=== PATIENT | female | born 1970 | race Hispanic/Latino ===

== ENCOUNTER 2025-10-18 17:10 | Inpatient (IN) | payer BC ==
[~2025-10-18] VITALS: Ht 157.5 cm; Wt 69.9 kg
--- NOTE | 2025-10-18 17:33 | ERN ---
General Chief Complaint: Shortness of Breath Stated Complaint: SOB Time Seen by MD: 17:13 Time Seen by Midlevel: 17:13 Source: patient History of Present Illness Initial Comments The patient is a 55 y/o female presenting to the emergency department via EMS from [facility] for evaluation of low O2 saturation. Patient was found to be hypoxic with an SPO2 of 88 on room air. She was placed on 3 liters of O2 with improvement to 98%. On arrival she reports increased generalized edema to her legs, hands, and face. Allergies: Coded Allergies: No Known Drug Allergies (Unverified Allergy, Unknown, 10/18/25) Past Medical History Past Medical History: CHF, Diabetes-Type II, Hypertension, GA Past Surgical History: CABG, ROS Dictation CONSTITUTIONAL: Negative except for HPI HEAD/FACE: Negative except for HPI EENT: Negative except for HPI RESPIRATORY: Negative except for HPI GASTROINTESTINAL/ABDOMINAL: Negative except for HPI GENITOURINARY: Negative except for HPI MUSCULOSKELETAL: Negative except for HPI INTEGUMENTARY: Negative except for HPI NEUROLOGICAL/PSYCH: Negative except for HPI HEMATOLOGIC/LYMPHATIC: Negative except for HPI All Systems Negative, Except as noted above. 13 point review of systems assessed and all negative except for above. Physical Exam Physical Exam Dictation Vital Signs reviewed General Appearance: Alert, oriented x 3, anasarca, ill-appearing, pale Head and Face: non-traumatic. Eyes: PERRL, pink conjunctivas, eyelid no trauma, anterior chamber with arcus senilis. Ears: Pinnas intact and no signs of trauma or erythema ear canals clear and no discharge TM no erythema Nose: No discharge, no bleeding. Oropharynx: Mouth normal, tongue pink, pharynx clear,no erythema, tonsils no exudates, no abscesses noted, mucous membrane moist Neck: Supple, non-tender, no thyromegaly, no masses, no JVD, no bruits Breast:Deferred Chest:No tenderness, no crepitus, no paradoxical movement, no retractions Lungs: Decreased breath sounds to the right lower lung rizo Heart: Regular rate, regular rhythm, no murmur, no gallops Vascular: 3+ pitting edema to bilateral lower extremities Abdomen: Soft, positive bowel sounds, nondistended, no guarding, nontender, no rebound, no masses no hepatomegaly, no splenomegaly, no Garcia's sign, no hernias. Rectal: Deferred Genital: Deferred Neurological: Normal speech, motor function intact, sensory function intact Musculoskeletal: Neck nontender, full range of motion, back nontender, full range of motion, Extremities: nontender, full range of motion Skin: Color pink, dry, no turgor, no rash, no lacerations, no abrasions, no contusions. Lymphatic: Deferred Results Laboratory and Microbiology Lab and Micro Result Laboratory Tests Test 10/18/25 17:42 White Blood Count 11.0 K/uL (4.8-10.8) H Red Blood Count 4.34 MIL/uL (4.00-5.50) Hemoglobin 9.7 g/dL (12.0-16.0) L Hematocrit 34.7 % (36-48) L Mean Corpuscular Volume 80.0 fL (79-99) Mean Corpuscular Hemoglobin 22.4 pg (27.0-33.0) L Mean Corpuscular Hemoglobin Concent 28.0 g/dL (32.0-36.0) L Red Cell Distribution Width 28.4 % (11.0-15.5) H Platelet Count 373 K/uL (130-400) Mean Platelet Volume 11.0 fL (7.5-10.5) H Immature Granulocyte % (Auto) 0.6 % (0-1) Neutrophils (%) (Auto) 83.1 % (40.0-77.0) H Lymphocytes (%) (Auto) 8.2 % (21.0-51.0) L Monocytes (%) (Auto) 6.0 % (3.0-13.0) Eosinophils (%) (Auto) 1.5 % (0.0-8.0) Basophils (%) (Auto) 0.6 % (0.0-5.0) Neutrophils # (Auto) 9.1 K/uL (1.8-7.7) H Lymphocytes # (Auto) 0.9 K/uL (1.0-4.8) L Monocytes # (Auto) 0.7 K/uL (0.1-1.0) Eosinophils # (Auto) 0.17 K/uL (0.00-0.70) Basophils # (Auto) 0.07 K/uL (0.00-0.20) Absolute Immature Granulocyte (auto 0.07 K/uL (0-1) Nucleated Red Blood Cells 0.0 % (0.0-0.19) White Cell Morphology Comment See comments Red Blood Cell Morphology See comments Prothrombin Time 11.8 SEC (9.6-11.6) H Prothromb Time International Ratio 1.13 (0.85-1.15) Activated Partial Thromboplast Time 25.8 SEC (26.3-35.5) L Sodium Level 139 mmol/L (136-145) Potassium Level 3.9 mmol/L (3.5-5.1) Chloride Level 102 mmol/L (101-111) Carbon Dioxide Level 28 mmol/L (21-32) Blood Urea Nitrogen 23 mg/dL (7-18) H Creatinine 1.7 mg/dL (0.5-1.0) H Glomerular Filtration Rate Calc 35 mL/min (>90) Random Glucose 84 mg/dL (70-105) Lactic Acid Level 1.6 mmol/L (0.8-2.5) Total Calcium 8.6 mg/dL (8.5-10.1) Magnesium Level 1.60 mg/dL (1.80-2.40) L Total Bilirubin 1.1 mg/dL (0.2-1.0) H Aspartate Amino Transf (AST/SGOT) 43 U/L (10-37) H Alanine Aminotransferase (ALT/SGPT) 36 U/L (12-78) Alkaline Phosphatase 318 U/L (50-136) H Total Creatine Kinase 119 U/L (21-232) Troponin I High Sensitivity 22 ng/L (4-50) B-Type Natriuretic Peptide 3050 pg/mL (0-100) H Total Protein 7.0 g/dL (6.0-8.3) Albumin 1.8 g/dL (3.5-5.0) L Procalcitonin 0.10 ng/mL (0.05-0.5) Labs Reviewed?: Yes MDM MDM: Differential diagnosis: Fluid overload, CHF exacerbation, pneumonia Rationale: Tests considered and ordered secondary to shared decision making include: Previous outside records reviewed: Old ER visits. Risk of complication and/or morbidity or mortality of patient management: None Medications-Per medication reconciliation Need for hospitalization: Patient does meet criteria for hospitalization. Need for emergency major/minor surgery: No There are no social concerns with this patient. Prescription drug management Prescriptions will include symptomatic care Patient's prior external medical records from other ER visits were reviewed by me as indicated. Prior testing and results from previous visits were reviewed. Prior tests were taken into account with medical decision making and resource utilization, independent historian/historians were used to obtain complete medical history. I independently interpreted the test that were performed, results were reviewed by me and considered findings on radiology if ordered. Medical management and examination interpretation discussions were had by me with other qualified healthcare professionals as indicated for the patient's care. ED Course Orders Procedure Category Date Status Time 12 Lead Ekg Tracing- EKG 10/18/25 Logged Technical 17:24 B-Type Natriuretic LAB 10/18/25 Complete Peptide 17:24 Cbc With Differential LAB 10/18/25 Complete 17:24 Comprehensive LAB 10/18/25 Complete Metabolic Panel 17:24 Creatine Kinase, Total LAB 10/18/25 Complete 17:24 Lactic Acid LAB 10/18/25 Complete 17:24 Magnesium LAB 10/18/25 Complete 17:24 Procalcitonin LAB 10/18/25 Complete 17:24 Pt And Ptt LAB 10/18/25 Complete 17:24 Troponin I High LAB 10/18/25 Complete Sensitivity 17:24 Urinalysis Profile LAB 10/18/25 Logged 17:24 Chest 1vw RAD 10/18/25 Resulted 17:24 Furosemide 40mg Vial PHA 10/18/25 Complete (Lasix 40mg Vial) 18:00 *Nursing CPOE 10/18/25 Transmitted Communication: 17:57 Current Medications Medications (Trade) Dose Ordered Sig/Blanca Route PRN Reason Start Time Stop Time Status Last Admin Dose Admin Furosemide (LASix 40MG VIAL) 40 mg ONCE ONCE IV 10/18/25 18:00 10/18/25 18:01 DC 10/18/25 18:29 Vital Signs Date Time Temp Pulse Resp B/P (MAP) Pulse Ox O2 Delivery O2 Flow Rate FiO2 10/18/25 19:23 97.3 91 18 111/72 100 Nasal Cannula* 3 32 10/18/25 17:23 98.1 91 14 100/67 97 Room Air 3.0 DX & DISP Disposition: Inpatient Departure Impression: Primary Impression: Fluid overload Additional Impressions: Acute hypoxemic respiratory failure, CHF exacerbat ion, Pleural effusion, right Condition: Stable I have reviewed the case, and I agree with, Diagnosis and Plan I performed the substantive portion of the visit. I have reviewed and personally made and approve the management plan that is documented in the note by myself or the LIBERTAD. I acknowledge for responsibility for the patient's management plan. CHRISTIANA GALINDO PAC Oct 18, 2025 17:33
[2025-10-18 17:57] LABS: IMMATURE GRANULOCYTE ABSOLUTE 0.07 K/uL (0-1); NUCLEATED RED BLOOD CELLS 0.0 % (0.0-0.19); PLATELET COUNT (AUTO) 373 K/uL (130-400); RED BLOOD CELL COUNT(AUTO) 4.34 MIL/uL (4.00-5.50); RED CELL DISTRIBUTION WIDTH 28.4 % (11.0-15.5); WHITE BLOOD COUNT (AUTO) 11.0 K/uL (4.8-10.8)
[2025-10-18 18:08] LABS: INR 1.13 (0.85-1.15)
[2025-10-18 18:15] LABS: CREATININE 1.7 mg/dL (0.5-1.0); GLOMERULAR FILTR. RATE CALC 35.0 mL/min (>90); GLUCOSE,RANDOM 84.0 mg/dL (70-105); SODIUM SERUM 139.0 mmol/L (136-145); UREA NITROGEN, BLOOD 23.0 mg/dL (7-18)
[2025-10-18 18:24] LABS: ASPARTATE AMINOTRANSFERASE 43.0 U/L (10-37); CREATINE KINASE, TOTAL 119.0 U/L (21-232); TOTAL PROTEIN, SERUM 7.0 g/dL (6.0-8.3)
--- NOTE | 2025-10-18 19:13 | HMCIMG ---
EXAM: CR Chest, 1 View. CLINICAL HISTORY: sob COMPARISON: None provided. FINDINGS: Large right pleural effusion with underlying airspace disease that may reflect compressive atelectasis. The left lung is relatively clear. No pneumothorax. Prior sternotomy. Cardiomegaly and pulmonary vascular congestion. IMPRESSION: 1. Large right pleural effusion with underlying airspace disease, possibly compressive atelectasis. 2. Cardiomegaly and pulmonary vascular congestion. /Artemas
--- NOTE | 2025-10-18 19:50 | NUR ---
16 FR GORDON CATHETER PRESENT WEB APPLICATION DEV SPECIALIST, INSERTION DATE NOTED 10/01/25
[2025-10-18 20:19] LABS: APPEARANCE,URINE TURBID (CLEAR); GLUCOSE, URINE (UA) NEGATIVE (NEGATIVE); LEUKOCYTE ESTERASE ,URINE 500 Leu/uL (NEGATIVE); NITRATE,URINE NEGATIVE (NEGATIVE); OCCULT BLOOD,URINE LARGE (NEGATIVE)
[2025-10-18 20:30] LABS: ADD UA MICROSCOPIC YES
[2025-10-18 20:46] LABS: NON-SQUAMOUS EPITHELIAL CELL <1 /HPF (0-2); SQUAMOUS EPITHELIAL CELL,UR MOD /HPF (0-2); WBC CLUMP RARE /HPF (0-1); YEAST,URINE BUDDING MOD /HPF (None Seen)
[2025-10-18 21:18] LABS: RAPID GROUP A STREP negative (NEGATIVE)
[2025-10-18 21:31] LABS: SARS-CoV-2, RNA, NAAT NEGATIVE SARS CoV-2 (NEGATIVE)
[2025-10-18 21:33] LABS: INFLUENZA TYPE A Negative For Type A (NEGATIVE); INFLUENZA TYPE B Negative For Type B (NEGATIVE)
--- NOTE | 2025-10-18 21:56 | HP ---
[facility] HISTORY & PHYSICAL Date Patient Seen: Oct 18, 2025 Time of Visit: 21:43 Supervising Physician: Dr. Shimon Ahn Primary Care Physician: Ger Zhang Outpatient Specialists: [ ] Inpatient Consults: [ ] PROBLEM LIST: Acute hypoxic respiratory failure, likely from right-sided pleural effusion, POA Right-sided pleural effusion, POA CHF in acute exacerbation, initial BNP of more than 3000 Sepsis, multifactorial, likely from respiratory, genitourinary infection, initial lactic acid is normal, procal normal POA Acute complicated cystitis, POA Hypertension, POA Hyperlipidemia, POA DM type II, with hyperglycemia, POA Acute kidney injury, POA Class two obesity, BMI of 35.5, POA History of CAD, status post two-vessel CABG, August 2024, POA History of peripheral vascular disease, status post left TMA with Dr. Cox, 09/2025 at [facility], [facility] PLAN: Admit to PCCU VS per unit protocol Continue with IV Lasix Obtain CT of the chest Avoid nephrotoxic agents Renally dose all medications Continue cefepime Treat fever aggressively Monitor temperature curve Follow up culture results Keep head of bed above 30 Continue O2 therapy Keep patient NPO after midnight for possible thoracentesis in am Incentive spirometry DuoNeb q.6 as needed for shortness of breaths CBC, CMP, magnesium level daily Keep SBP less than 160 P.r.n. hydralazine labetalol Keep serum glucose less than 150 ISS and fingerstick per unit protocol Obtain 2D echo HPI: 55-year-old female with past medical history of hypertension, hyperlipidemia, DM type 2, obesity, PVD, status post recent left TMA with Dr. Cox who [facility] for low oxygen saturation, and worsening shortness of breaths. Patient was seen and examined in ED with no relatives present at bedside. Apparently patient recently had left TMA last month, was sent to above-mentioned rehab for continued recovery and long-term antibiotic therapy. Today he started to have some shortness of breath with associated cough. She was sent to ER for further medical evaluation. Her symptoms are not associated with fever, cough with phlegm, chest pain, or confusion. On evaluation patient was found to have low oxygen saturation improved with administration of oxygen and IV Lasix. In ED stat chest x-ray was done and showed large right-sided pleural effusion, CBC showed mild leukocytosis with normocytic anemia , her chemistry significant for creatinine level of 1.7, BNP of more than 3000, initial lactic acid was normal, with normal procalcitonin level. Her COVID and flu tests were also negative. At present patient is currently hemodynamically stable, on2 L of oxygen with appropriate oxygen saturation, patient is awake, not in acute respiratory distress, able to answer questions appropriately. On evaluation there is shortness of breaths, on auscultation there is diminished right lung field. There is no abdominal pain, or bloatedness, there is no right lower extremity edema, however there is dressing to left foot from recent TMA. Patient has remote history of smoking, denies any alcohol intake, or illicit drug use. PAST MEDICAL HX: see above PAST SURGICAL HX: noncontributory SOCIAL HISTORY: See HP Coded Allergies: No Known Drug Allergies (Unverified Allergy, Unknown, 10/18/25) REVIEW OF SYSTEMS: 12 point ROS reviewed with patient. Pertinent positives mentioned above. Otherwise negative. PHYSICAL EXAM: GENERAL: alert, weak, awake oriented x 3 HEENT: EOMI, Sclera non icteric, moist mucosa NECK: Supple, no JVD, trachea midline LUNGS: Diminished right lung rizo on auscultation HEART: Regular rate and rhythm. Normal S1 and S2, without murmurs ABD: Abdomen soft, nontender. Bowel sounds present EXT: No clubbing cyanosis or edema, left foot TMA NEURO: Alert and oriented to person, follows commands Vital Signs (last 8hr) Date Time Temp Pulse Resp B/P (MAP) Pulse Ox O2 Delivery O2 Flow Rate FiO2 10/18/25 19:23 97.3 91 18 111/72 100 Nasal Cannula* 3 32 10/18/25 17:23 98.1 91 14 100/67 97 Room Air 3.0 LABS: Hematology Labs: Test 10/18/25 17:42 Range/Units White Blood Count 11.0 H 4.8-10.8 K/uL Red Blood Count 4.34 4.00-5.50 MIL/uL Hemoglobin 9.7 L 12.0-16.0 g/dL Hematocrit 34.7 L 36-48 % Mean Corpuscular Volume 80.0 79-99 fL Mean Corpuscular Hemoglobin 22.4 L 27.0-33.0 pg Mean Corpuscular Hemoglobin Concent 28.0 L 32.0-36.0 g/dL Red Cell Distribution Width 28.4 H 11.0-15.5 % Platelet Count 373 130-400 K/uL Mean Platelet Volume 11.0 H 7.5-10.5 fL Immature Granulocyte % (Auto) 0.6 0-1 % Neutrophils (%) (Auto) 83.1 H 40.0-77.0 % Lymphocytes (%) (Auto) 8.2 L 21.0-51.0 % Monocytes (%) (Auto) 6.0 3.0-13.0 % Eosinophils (%) (Auto) 1.5 0.0-8.0 % Basophils (%) (Auto) 0.6 0.0-5.0 % Neutrophils # (Auto) 9.1 H 1.8-7.7 K/uL Lymphocytes # (Auto) 0.9 L 1.0-4.8 K/uL Monocytes # (Auto) 0.7 0.1-1.0 K/uL Eosinophils # (Auto) 0.17 0.00-0.70 K/uL Basophils # (Auto) 0.07 0.00-0.20 K/uL Absolute Immature Granulocyte (auto 0.07 0-1 K/uL Nucleated Red Blood Cells 0.0 0.0-0.19 % White Cell Morphology Comment See comments Red Blood Cell Morphology See comments Chemistry Labs: Test 10/18/25 17:42 Range/Units Sodium Level 139 136-145 mmol/L Potassium Level 3.9 3.5-5.1 mmol/L Chloride Level 102 101-111 mmol/L Carbon Dioxide Level 28 21-32 mmol/L Blood Urea Nitrogen 23 H 7-18 mg/dL Creatinine 1.7 H 0.5-1.0 mg/dL Glomerular Filtration Rate Calc 35 >90 mL/min Random Glucose 84 70-105 mg/dL Lactic Acid Level 1.6 0.8-2.5 mmol/L Total Calcium 8.6 8.5-10.1 mg/dL Magnesium Level 1.60 L 1.80-2.40 mg/dL Total Bilirubin 1.1 H 0.2-1.0 mg/dL Aspartate Amino Transf (AST/SGOT) 43 H 10-37 U/L Alanine Aminotransferase (ALT/SGPT) 36 12-78 U/L Alkaline Phosphatase 318 H 50-136 U/L Total Creatine Kinase 119 21-232 U/L Troponin I High Sensitivity 22 4-50 ng/L B-Type Natriuretic Peptide 3050 H 0-100 pg/mL Total Protein 7.0 6.0-8.3 g/dL Albumin 1.8 L 3.5-5.0 g/dL Procalcitonin 0.10 0.05-0.5 ng/mL Coagulation Labs: Test 10/18/25 17:42 Range/Units Prothrombin Time 11.8 H 9.6-11.6 SEC Prothromb Time International Ratio 1.13 0.85-1.15 Activated Partial Thromboplast Time 25.8 L 26.3-35.5 SEC DIAGNOSTICS / RADIOLOGY RESULTS: EXAM: CR Chest, 1 View. CLINICAL HISTORY: sob COMPARISON: None provided. FINDINGS: Large right pleural effusion with underlying airspace disease that may reflect compressive atelectasis. The left lung is relatively clear. No pneumothorax. Prior sternotomy. Cardiomegaly and pulmonary vascular congestion. IMPRESSION: 1. Large right pleural effusion with underlying airspace disease, possibly compressive atelectasis. 2. Cardiomegaly and pulmonary vascular congestion. PLAN NEURO: Minimize central acting medications as possible. Maintain fall precautions, adequate lighting during the day PULMONARY: Supplemental 02 as needed. Maintain aspiration precautions at all times CARDIOVASCULAR: Follow hemodynamics. Vital signs per facility protocol GI & NUTRITION: Continue with nutritional support. Continue stool softeners and laxatives as needed. KIDNEYS & ELECTROLYTES: Strict monitoring of intake, output and overall fluid balance. Avoid nephrotoxic medications to the extent possible. Medications to be dosed according to renal function. Monitor electrolytes and replace as needed ENDOCRINE: Maintain blood glucose between 100-180 at all times. Hypoglycemia protocol in place INFECTIOUS DISEASE: Trend temperature, WBC and procalcitonin level Follow cultures, deescalate antibiotics as soon as possible. Panculture if new onset fever ONCOLOGY/HEMATOLOGY/COAGULATION: Monitor for s/s of bleeding Monitor hemoglobin, coagulation studies as needed SKIN: Pressure ulcer prevention per facility protocol Specialty mattress ORTHO/REHAB: Continue PT/OT Prophylaxis: Continue GI and DVT prophylaxis Code Status: Full Resuscitation Disposition: TBD Other: Total patient care time exceeds 35 minutes excluding all procedures. Supervising physician: Dr. Shimon Ahn [facility] Oct 18, 2025 21:56
--- NOTE | 2025-10-18 23:03 | HMCIMG ---
EXAM: CT Chest Without IV contrast. CLINICAL HISTORY: Pleural effusion. TECHNIQUE: Axial computed tomography images of the chest without intravenous contrast. COMPARISON: X-ray dated October 18, 2025. FINDINGS: LUNGS: Large right pleural effusion with collapse of the right lung, predominantly the lower lobe. Small left pleural effusion with adjacent passive atelectasis of the lower lobe. Linear atelectasis in the left upper lobe. PLEURAL SPACES: Large right and small left pleural effusion. No pneumothorax evident. HEART: Cardiomegaly. No significant pericardial effusion. Coronary artery calcifications. The main pulmonary artery and its branches are mildly dilated, which may represent mild pulmonary arterial hypertension. LYMPH NODES: No lymphadenopathy is evident. UPPER ABDOMEN: Mild perihepatic fluid. The upper abdominal solid organs are unremarkable. BONES: Sternotomy wires in place. Moderate multilevel degenerative changes in the spine. No acute osseous abnormality. Diffuse chest wall edema with skin thickening. IMPRESSION: Large right pleural effusion with right lung passive collapse, predominantly the lower lobe. Small left pleural effusion with adjacent passive atelectasis of the left lower lobe. Cardiomegaly. /Aislinn
--- NOTE | 2025-10-18 23:17 | NUR ---
REPORT GIVEN TO KRISTEN RN
[2025-10-18] MEDS ORDERED: ZINC220T4 PO (23:39)
[2025-10-18] MEDS ORDERED: EMPA25TA PO (23:39)
[2025-10-18] MEDS ORDERED: SITA25TA5 PO (23:39)
[2025-10-18] MEDS ORDERED: GABA300C PO (23:39)
[2025-10-18] MEDS ORDERED: ASCO500T10 PO (23:39)
[2025-10-18] MEDS ORDERED: ENAL2.5T71 PO (23:39)
[2025-10-18] MEDS ORDERED: NYST15PO13 TP (23:39)
[2025-10-18] MEDS ORDERED: VERI2.5T PO (23:39)
[2025-10-18] MEDS ORDERED: METO25TA6 PO (23:39)
[2025-10-18] MEDS ORDERED: ATOR40TA71 PO (23:39)
[2025-10-18] MEDS ORDERED: ACET-2079 PO (23:39)
[2025-10-18] MEDS ORDERED: SPIR100T5 PO (23:39)
[2025-10-18] MEDS ORDERED: SACU1TAB7 PO (23:39)
[2025-10-18] MEDS ORDERED: CLOP75TA32 PO (23:39)
[2025-10-18] MEDS ORDERED: ASPI-1443 PO (23:39)
[2025-10-18] MEDS ORDERED: METF-910 PO (23:39)
[2025-10-18] MEDS ORDERED: FURO40TA5 PO (23:39)
[2025-10-18 23:42] VITALS: PULSE 95; RESP 16
[2025-10-18 23:43] VITALS: PULSE 95; RESP 16; O2SAT 97
[2025-10-19] VITALS (13 sets, daily range): BP systolic 104–119; BP diastolic 52–72; PULSE 92–104; RESP 18–22; TEMP 98.2–98.9; O2SAT 85–100
[2025-10-19 05:17] LABS: IMMATURE GRANULOCYTE ABSOLUTE 0.04 K/uL (0-1); NUCLEATED RED BLOOD CELLS 0.0 % (0.0-0.19); PLATELET COUNT (AUTO) 299 K/uL (130-400); RED BLOOD CELL COUNT(AUTO) 4.19 MIL/uL (4.00-5.50); RED CELL DISTRIBUTION WIDTH 28.3 % (11.0-15.5); WHITE BLOOD COUNT (AUTO) 9.3 K/uL (4.8-10.8)
[2025-10-19 05:37] LABS: CREATININE 1.5 mg/dL (0.5-1.0); GLOMERULAR FILTR. RATE CALC 41.0 mL/min (>90); GLUCOSE,RANDOM 70.0 mg/dL (70-105); PHOSPHORUS 3.8 mg/dL (2.5-4.9); SODIUM SERUM 141.0 mmol/L (136-145); UREA NITROGEN, BLOOD 26.0 mg/dL (7-18)
[2025-10-19] MEDS: MAGNESIUM 2GM PREMIX 50ML 50 ML IV ONE (06:19)
--- NOTE | 2025-10-19 07:08 | EKG ---
[facility] Test Date: 2025-10-18 Test Time: 17:22:40 Pat Name: NAS SALCIDO Department: EDHIP Room: ED 01 Gender: F Director Strategic Planning: 9920 : 1970 Requested By: CHRISTIANA GALINDO Order Number: [id number] Reading MD: Sia Mann Measurements Intervals [place] Rate: 89 P: 44 ND: 153 QRS: 19 QRSD: 66 T: 88 QT: 287 QTc: 349 Interpretive Statements Sinus rhythm Low voltage, extremity and precordial leads No previous ECG available for comparison Electronically Signed On 10-19-2025 10:07:07 RESPIRATORY CARE PRACTITIONER by Sia Mann Please click the below link to view image of tracing.
[2025-10-19 08:38] LABS: ABG BASE EXCESS -1.5 mmol/L (-2.0-3.0); ABG HCO3 25.3 mmol/L (21.0-28.0); ABG OXYGEN SATURATION 93.5 % (94.0-98.0); ABG PCO2 51 mmHg (32-45); ABG PH 7.317 (7.350-7.450); PO2, ARTERIAL BG 73.9 mmHg (83.0-108.0); TEMPERATURE, CELSIUS BG 37.0 CELSIUS (35.5-37.0); VENT MODE, BG NC (ROOM AIR)
[2025-10-19] MEDS ORDERED: GLUCAGON 1MG KIT 1 MG ML IM PRN (09:00)
[2025-10-19] MEDS ORDERED: DEXTROSE 50%-WATER 50 ML DISP.SYRIN IV PRN (09:00)
[2025-10-19] MEDS: DEXTROSE 50%-WATER 50 ML DISP.SYRIN IV ONE (09:01)
[2025-10-19] MEDS: DOXYCYCLINE 100MG+NS 250ML 250 ML IV SCH (09:25)
[2025-10-19] MEDS: ASCORBIC ACID 500 MG TAB PO SCH (09:25)
--- NOTE | 2025-10-19 10:13 | HMCSR ---
APPROVED REPORT EXAM: Two-dimensional and M-mode echocardiogram with Doppler and color Doppler. INDICATION ICD: Heart Failure 2D Dimensions RVDd 4.7 cm LVEF(%) 26.6 (>50%) LVED Vol(simp.) 90.0 mL IVSd 0.9 (0.7-1.1cm) FS(%) 12 % LVES Vol(simp.) 46.0 mL LVDd 4.9 (3.8-5.6cm) LA (2D) 4.4 (1.6-4.0cm) LVEF(%, simp.) 49 % PWd 1.0 (0.7-1.1cm) Ao Root(2D) 2.2 (2.0-3.7cm) LA ESV INDEX (BP) 35.18 mL/m2 LVDs 4.3 (2.5-4.0cm) LVOT diam 1.9 (1.8-2.4cm) IVC diam 2.3 cm Deformation Strain Apical 4 -10.8 % Apical 2 -12.6 % Apical 3 -9.9 % Global Strain -11.1 % M-Mode Dimensions EPSS 0.5 cm LA (MM) 4.5 (1.6-4.0cm) Ao Root(MM) 2.0 (2.0-3.7cm) Aortic Valve AoV Vmax 1.5 m/s Ao Peak GR 9.4 mmHg LVOT Vmax 1.0 m/s AoV VTI 0.2 m Ao Mean GR 4.9 mmHg LVOT VTI 0.16 m MITCHEL (VMAX) 1.88 cm2 MITCHEL (VTI) 1.9 cm2 Mitral Valve MV E Vmax 102.5 cm/s DECEL Time 111 ms MV A Vmax 48.1 cm/s P 1/2 T 39 ms E/A ratio 2.1 MVA (PHT) 5.6 cm2 TDI E/E' Medial 15.8 E/E' Lateral 7.6 Medial E' Peak V 6.47 cm/s Lateral E' Peak V 13.57 cm/s Pulmonary Valve PV Vmax 1.1 m/s PV VTI 0.18 m PV Mean GR 2.5 mmHg PV Peak GR 4.6 mmHg Tricuspid Valve TR Vmax 3.0 m/s RAP (EST) 15 mmHg RVSP 54.6 mmHg TR Peak GR 39.6 mmHg Left Ventricle The left ventricle is normal size. GLS -11.0% There is normal left ventricular wall thickness. LVEF is 50-55%. Stage III diastolic dysfunction. Right Ventricle The right ventricle is moderately dilated. Right ventricular systolic function is severely reduced. Atria The left atrium is upper limits normal in size. The right atrium size is normal. Aortic Valve Aortic valve is trileaflet, mildly thickened and opens well. No aortic regurgitation is present. There is no aortic valvular stenosis. Mitral Valve The mitral valve is mildly thickened. There is moderate mitral valve regurgitation noted. There is no mitral valve stenosis. Tricuspid Valve The tricuspid valve is normal in structure. There is moderate tricuspid valve regurgitation noted. RVSP 50-55 mmHg. Pulmonic Valve The pulmonary valve is normal in structure. There is trace of pulmonic valvular regurgitation. Great Vessels The aortic root is normal in size. IVC is dilated and collapses <50% with inspiration. Pericardium There is no pericardial effusion. Other Information Quality : Adequate Rhythm : NSR Conclusion LVEF is 50-55%. Stage III diastolic dysfunction. Right ventricular systolic function is severely reduced. Aortic valve sclerosis without stenosis. The mitral valve is mildly thickened with moderate mitral valve regurgitation noted. Moderate tricuspid valve regurgitation noted. RVSP 50-55 mmHg.
--- NOTE | 2025-10-19 13:03 | NUR ---
REPORT GIVEN TO LARA, PT STABLE NO DISTRES VITALS WNL NO C/O PAIN NOW.
--- NOTE | 2025-10-19 13:18 | NUR ---
DCP:[facility] Prior to coming to the hospital pt was at [facility] for PT for 2 weeks. Normally pt lives at home with her son. Pt states that she has a walker and a bed side commode. Pt denies having any home health or provider services at home. Pt states that while she was at [facility] staff was assisting with ADLs. PCP is Dr. Марина Zhang and uses [facility] for any RX needs. At [place] pt states that she would need to go back to [facility] to finish treatment (consent in chart).
--- NOTE | 2025-10-19 16:30 | NUR ---
BEDSIDE SWALLOW EVAL COMPLETED. No s/s of aspiration. RECOMMENDATIONS: Regular solids (MOIST), thin liquids and pills whole with liquids as tolerated. COMPENSATORY STRATEGIES: 1. sit upright during oral intake 2. small bites/sips 3. slow oral intake WOOL BUYER reviewed results and recommendations with patient and nurse Gay. WOOL BUYER educated patient on risks and consequences of aspiration. Speech therapy not warranted at this time. All questions answered. Addendum: 10/20/[address] [facility] Amended: Links added.
--- NOTE | 2025-10-19 16:34 | PN ---
[facility] PROGRESS NOTE Date Patient Seen: Oct 19, 2025 Time of Visit: 1042 Supervising Physician: Dr. Shimon Ahn Primary Care Physician: Ger Zhang Outpatient Specialists: [ ] Inpatient Consults: Dr. Cox PROBLEM LIST: Acute hypoxic respiratory failure, likely from right-sided pleural effusion, POA Right-sided pleural effusion, POA CHF in acute exacerbation, initial BNP 3050 10/18/25 Sepsis, multifactorial, likely from respiratory, genitourinary infection, initial lactic acid is normal, procal normal POA Acute complicated cystitis, POA 2 D Echo 50-55%, Stage III diastolic dysfunction Left foot TMA wound care Hypertension, POA Hyperlipidemia, POA DM type II, with hyperglycemia, POA Acute kidney injury, POA Class two obesity, BMI of 35.5, POA History of CAD, status post two-vessel CABG, August 2024, POA History of peripheral vascular disease, status post left TMA with Dr. Cox, 09/2025 at [facility], [facility] INTERVAL HISTORY: Patient evaluated at bedside today. She is awake, alert and oriented x 3. Denies chest pain, abdominal pain, nausea,or vomiting. She does however report shortness of breath if she takes off her oxygen. She is currently on [address] chest shows large right pleural effusion. Patient will be having a thoracentesis, but at this time will have to wait due to patient was on Plavix, last dose received today. Can have thoracentesis after 5 days of being off P lavix or emergently if patient becomes symptomatic. She reports having trouble swallowing. She states she was told at [facility] her uvula was swollen. No swelling noted to tonsils or uvula when inspected. She states it does feel better. Bedside nurse reports no acute incidents. PLAN: Continue with IV Doxycycline and Cefepime Pending thoracentesis for right side pleural effusion Hold Plavix last dose 10/19/[address] Cox for left foot wound care Pending Arterial US Pending Speech evaluation VS per unit protocol Continue with IV Lasix Continue with Heparin BID Avoid nephrotoxic agents Renally dose all medications Treat fever aggressively Follow up culture results Keep head of bed above 30 Continue O2 therapy Incentive spirometry DuoNeb q.6 as needed for shortness of breaths CBC, CMP, magnesium level daily REVIEW OF SYSTEMS: 12 point ROS reviewed with patient. Pertinent positives mentioned above. Otherwise negative. PHYSICAL EXAM: GENERAL: alert, weak, awake oriented x 3 HEENT: EOMI, Sclera non icteric, moist mucosa NECK: Supple, no JVD, trachea midline LUNGS: Diminished right lung rizo on auscultation HEART: Regular rate and rhythm. Normal S1 and S2, without murmurs ABD: Abdomen soft, nontender. Bowel sounds present EXT: No clubbing cyanosis or edema, left foot TMA NEURO: Alert and oriented to person, follows commands Vital Signs (last 8hr) Date Time Temp Pulse Resp B/P (MAP) Pulse Ox O2 Delivery O2 Flow Rate FiO2 10/19/25 15:00 94 Nasal Cannula* 3 32 10/19/25 13:50 99.0 104 22 109/71 93 Nasal Cannula 2.0 10/19/25 10:58 98.2 106 20 122/74 96 Room Air* 4 36 10/19/25 10:32 102 20 N/A Room Air 21 10/19/25 10:29 102 20 10/19/25 10:29 102 20 N/Cannula Low lpm 2.0 LABS: Hematology Labs: Test 10/19/25 05:01 10/18/25 17:42 Range/Units White Blood Count 9.3 4.8-10.8 K/uL Red Blood Count 4.19 4.00-5.50 MIL/uL Hemoglobin 9.2 L 12.0-16.0 g/dL Hematocrit 33.6 L 36-48 % Mean Corpuscular Volume 80.2 79-99 fL Mean Corpuscular Hemoglobin 22.0 L 27.0-33.0 pg Mean Corpuscular Hemoglobin Concent 27.4 L 32.0-36.0 g/dL Red Cell Distribution Width 28.3 H 11.0-15.5 % Platelet Count 299 130-400 K/uL Mean Platelet Volume 10.2 7.5-10.5 fL Immature Granulocyte % (Auto) 0.4 0-1 % Neutrophils (%) (Auto) 81.2 H 40.0-77.0 % Lymphocytes (%) (Auto) 9.8 L 21.0-51.0 % Monocytes (%) (Auto) 6.8 3.0-13.0 % Eosinophils (%) (Auto) 1.2 0.0-8.0 % Basophils (%) (Auto) 0.6 0.0-5.0 % Neutrophils # (Auto) 7.6 1.8-7.7 K/uL Lymphocytes # (Auto) 0.9 L 1.0-4.8 K/uL Monocytes # (Auto) 0.6 0.1-1.0 K/uL Eosinophils # (Auto) 0.11 0.00-0.70 K/uL Basophils # (Auto) 0.06 0.00-0.20 K/uL Absolute Immature Granulocyte (auto 0.04 0-1 K/uL Nucleated Red Blood Cells 0.0 0.0-0.19 % White Cell Morphology Comment See comments Red Blood Cell Morphology See comments Chemistry Labs: Test 10/19/25 16:04 10/19/25 05:01 10/18/25 17:42 Range/Units Whole Blood Glucose 118 H 70-110 MG/DL Bedside Glucose Comment Notified Nurse Sodium Level 141 136-145 mmol/L Potassium Level 3.7 3.5-5.1 mmol/L Chloride Level 104 101-111 mmol/L Carbon Dioxide Level 27 21-32 mmol/L Blood Urea Nitrogen 26 H 7-18 mg/dL Creatinine 1.5 H 0.5-1.0 mg/dL Glomerular Filtration Rate Calc 41 >90 mL/min Random Glucose 70 70-105 mg/dL Total Calcium 8.4 L 8.5-10.1 mg/dL Phosphorus Level 3.8 2.5-4.9 mg/dL Magnesium Level 1.50 L 1.80-2.40 mg/dL Lactic Acid Level 1.6 0.8-2.5 mmol/L Total Bilirubin 1.1 H 0.2-1.0 mg/dL Aspartate Amino Transf (AST/SGOT) 43 H 10-37 U/L Alanine Aminotransferase (ALT/SGPT) 36 12-78 U/L Alkaline Phosphatase 318 H 50-136 U/L Total Creatine Kinase 119 21-232 U/L Troponin I High Sensitivity 22 4-50 ng/L B-Type Natriuretic Peptide 3050 H 0-100 pg/mL Total Protein 7.0 6.0-8.3 g/dL Albumin 1.8 L 3.5-5.0 g/dL Procalcitonin 0.10 0.05-0.5 ng/mL Coagulation Labs: Test 10/18/25 17:42 Range/Units Prothrombin Time 11.8 H 9.6-11.6 SEC Prothromb Time International Ratio 1.13 0.85-1.15 Activated Partial Thromboplast Time 25.8 L 26.3-35.5 SEC DIAGNOSTICS / RADIOLOGY RESULTS: n/a PLAN NEURO: Minimize central acting medications as possible. Maintain fall precautions, adequate lighting during the day PULMONARY: Supplemental 02 as needed. Maintain aspiration precautions at all times CARDIOVASCULAR: Follow hemodynamics. Vital signs per facility protocol GI & NUTRITION: Continue with nutritional support. Continue stool softeners and laxatives as needed. KIDNEYS & ELECTROLYTES: Strict monitoring of intake, output and overall fluid balance. Avoid nephrotoxic medications to the extent possible. Medications to be dosed according to renal function. Monitor electrolytes and replace as needed ENDOCRINE: Maintain blood glucose between 100-180 at all times. Hypoglycemia protocol in place INFECTIOUS DISEASE: Trend temperature, WBC and procalcitonin level Follow cultures, deescalate antibiotics as soon as possible. Panculture if new onset fever ONCOLOGY/HEMATOLOGY/COAGULATION: Monitor for s/s of bleeding Monitor hemoglobin, coagulation studies as needed SKIN: Pressure ulcer prevention per facility protocol Specialty mattress Wound care to left TMA ORTHO/REHAB: Continue PT/OT Prophylaxis: Continue GI and DVT prophylaxis Pantoprazole and Heparin Code Status: Full Resuscitation Disposition: HANG PATEL APRN Oct 19, 2025 16:34
[2025-10-20] VITALS (13 sets, daily range): BP systolic 106–175; BP diastolic 63–91; PULSE 76–99; RESP 18–24; TEMP 97.6–98.4; O2SAT 94–100
--- NOTE | 2025-10-20 01:42 | HMCIMG ---
LEFT LOWER EXTREMITY ARTERIAL DUPLEX ULTRASOUND CLINICAL INDICATION: Left foot gangrene; history of diabetes mellitus. TECHNIQUE: Grayscale, color Doppler, and spectral waveform analysis of the left lower extremity arterial system were performed. COMPARISON: None. FINDINGS: Artery PSV (cm/s) Waveform ATOMIC PROCESS ENGINEER (Common Femoral Artery) 158 cm/s Triphasic SFA Proximal 104 cm/s Triphasic SFA Mid 85 cm/s Triphasic SFA Distal 91 cm/s Triphasic Popliteal Artery 63 cm/s Triphasic GEOSPATIAL APPLICATIONS DEVELOPER (Posterior Tibial Artery) 59 cm/s Triphasic DARSHAN (Anterior Tibial Artery) 41 cm/s Monophasic DPA (Dorsalis Pedis Artery) 17 cm/s Monophasic The common femoral artery, superficial femoral artery, popliteal artery, and posterior tibial arteries are patent and demonstrate normal triphasic spectral profile. The anterior tibial artery demonstrates monophasic flow with a peak systolic velocity of 41 cm/s, indicating reduced and dampened inflow. The dorsalis pedis artery shows retrograde (reverse) flow, consistent with collateral-dependent perfusion of the foot. These findings suggest compromised antegrade flow through the anterior tibial artery. Moderate to severe atherosclerotic plaques are seen in the arteries. IMPRESSION 1. Monophasic, low-velocity flow in the anterior tibial artery (41 cm/s) with retrograde flow in the dorsalis pedis artery is most consistent with hemodynamically significant proximal disease of the anterior tibial artery, with collateral pathways supplying the dorsalis pedis retrogradely. Correlation with ELIOT/toe pressures and evaluation of the femoropopliteal inflow is recommended. 2. Normal triphasic flow pattern in the common femoral, superficial femoral popliteal and posterior tibial arteries. /Havana
[2025-10-20 04:39] LABS: NUCLEATED RED BLOOD CELLS 0.0 % (0.0-0.19); PLATELET COUNT (AUTO) 287.0 K/uL (130-400); RED BLOOD CELL COUNT(AUTO) 3.85 MIL/uL (4.00-5.50); RED CELL DISTRIBUTION WIDTH 27.4 % (11.0-15.5); WHITE BLOOD COUNT (AUTO) 7.9 K/uL (4.8-10.8)
[2025-10-20 05:16] LABS: ASPARTATE AMINOTRANSFERASE 36.0 U/L (10-37); CREATININE 1.6 mg/dL (0.5-1.0); GLOMERULAR FILTR. RATE CALC 38.0 mL/min (>90); GLUCOSE,RANDOM 133.0 mg/dL (70-105); PHOSPHORUS 3.4 mg/dL (2.5-4.9); SODIUM SERUM 138.0 mmol/L (136-145); TOTAL PROTEIN, SERUM 6.3 g/dL (6.0-8.3); UREA NITROGEN, BLOOD 27.0 mg/dL (7-18)
[2025-10-20] MEDS: MAGNESIUM 2GM PREMIX 50ML 50 ML IV PRN (05:42)
[2025-10-20] MEDS: PoTASSium chloRIDE 20MEQ ER 20 MEQ ERTAB PO PRN (06:31)
[2025-10-20] MEDS: PoTASSium chl 10% ELIXIR 20MEQ 20 MEQ/15 ML UDCUP PO PRN (06:47)
--- NOTE | 2025-10-20 07:22 | PN ---
PROGRESS NOTES DATE OF SERVICE: 10/19/2025 SUBJECTIVE: The patient is a 55-year-old diabetic female who is status post a transmetatarsal amputation to her foot on the left that I performed at [facility] approximately 2 weeks ago. She had been evaluated by her hose cementer, Dr. Angel Malave. She had a revascularization procedure on the left side. She had a transmetatarsal amputation on the left foot secondary to gangrene and osteomyelitis. The patient was sent for admission from [facility] with difficulty swallowing. According to the patient, she was evaluated and found to have swelling of her uvula. PAST MEDICAL HISTORY: The patient has a past medical history significant for shortness of breath, difficulty swallowing, low O2 saturation, patient with hypoxia, increasing edema to her hands, face and leg. The patient has past medical history of congestive heart failure, diabetes type 2, hypertension, and myocardial infarction. PAST SURGICAL HISTORY: Coronary artery bypass grafting and surgery, left transmetatarsal amputation. MEDICATIONS: The patient is currently receiving no antibiotics other than cefepime 1 g q.12 hours. REVIEW OF SYSTEMS: CONSTITUTIONAL: The patient denies having shortness of breath or difficulty swallowing. HEENT: No problems with eyes, ears, nose. CARDIOVASCULAR: She has known peripheral vascular disease. She is being followed by Dr. Angel Malave. GASTROINTESTINAL: Difficulty swallowing. GENITOURINARY: Elevated renal function. PSYCHIATRIC: Denies having depression. MUSCULOSKELETAL: Transmetatarsal amputation on the left. INTEGUMENTARY: She has dry eschar on the plantar flap of the transmetatarsal amputation site on the left. OBJECTIVE: Currently afebrile at 98.2, pulse 102, respirations 20, and blood pressure 116/71. BUN and creatinine level 26/1.5, glucose 118, white count 9.3, H and H 9.2 and 33.6, platelets 229, and neutrophils 81.2. On examination, the feet are warm, with elongated, thickened, brittle, gryphotic toenails x5 on the right; dry necrotic eschar tissue to the dorsal and plantar flap of the transmetatarsal amputation on the left in an area of approximately 12 x 9 cm. No evidence of consolidated abscess or ascending cellulitis. No drainage to culture. ASSESSMENT: Demarcating necrosis of the plantar flap of the transmetatarsal amputation on the left status post revascularization procedure by the Cardiology Service. Dr. Angel Malave is her hose cementer. The patient is receiving cefepime. The patient had been followed by Dr. Harper at [facility] for antibiotic therapy. PLAN: I will order arterial Doppler studies to assess her healing potential. I would recommend consulting her hose cementer, Dr. Angel Malave, to evaluate her circulation status, Betadine dressings, IV cefepime, and offloading measures on the left. Today I debrided her toenails on the right extensively, reducing the length and girth to pink healthy tissue with subungual debris, tendinous follicle, and nail clipper and dermal curette without incident. TID: [id number] RECEIPT: [id number]
--- NOTE | 2025-10-20 16:34 | PN ---
[facility] PROGRESS NOTE Date Patient Seen: Oct 20, 2025 Time of Visit: 1042 Supervising Physician: Dr. Rosalio Zhang Primary Care Physician: Ger Zhang Outpatient Specialists: [ ] Inpatient Consults: Dr. Cox PROBLEM LIST: Acute hypoxic respiratory failure, likely from right-sided pleural effusion, POA Right-sided pleural effusion, POA CHF in acute exacerbation, initial BNP 3050 10/18/25 Sepsis, multifactorial, likely from respiratory, genitourinary infection, initial lactic acid is normal, procal normal POA Acute complicated cystitis, POA 2 D Echo 50-55%, Stage III diastolic dysfunction Difficulty swallowing Left foot TMA wound care Hypertension, POA Hyperlipidemia, POA DM type II, with hyperglycemia, POA Acute kidney injury, POA Class two obesity, BMI of 35.5, POA History of CAD, status post two-vessel CABG, August 2024, POA History of peripheral vascular disease, status post left TMA with Dr. Cox, 09/2025 at [facility], [facility] INTERVAL HISTORY: Patient evaluated at bedside today. She is awake, alert and oriented x 3. Denies chest pain, abdominal pain, nausea,or vomiting. She continues on oxygen 2 LPM NC. Patient evaluated by speech therapist she recommends to continue with regular solids (MOIST) until discomfort of uvula subsides. As per bedside nurse she reports patient has been sleepy.When I spoke to patient she stated she just feels tired. PLAN: Continue with IV Doxycycline and Cefepime Pending thoracentesis for right side pleural effusion to be done Friday10/23/25 Hold Plavix last dose 10/19/[address] Cox for left foot wound care Pending Arterial US Follow speech recommendations VS per unit protocol Continue with IV Lasix Continue with Heparin BID Avoid nephrotoxic agents Renally dose all medications Treat fever aggressively Follow up culture results Keep head of bed above 30 Continue O2 therapy Incentive spirometry DuoNeb q.6 as needed for shortness of breaths CBC, CMP, magnesium level daily REVIEW OF SYSTEMS: 12 point ROS reviewed with patient. Pertinent positives mentioned above. Otherwise negative. PHYSICAL EXAM: GENERAL: alert, weak, awake oriented x 3 HEENT: EOMI, Sclera non icteric, moist mucosa NECK: Supple, no JVD, trachea midline LUNGS: Diminished right lung rizo on auscultation HEART: Regular rate and rhythm. Normal S1 and S2, without murmurs ABD: Abdomen soft, nontender. Bowel sounds present EXT: No clubbing cyanosis or edema, left foot TMA NEURO: Alert and oriented to person, follows commands Vital Signs (last 8hr) Date Time Temp Pulse Resp B/P (MAP) Pulse Ox O2 Delivery O2 Flow Rate FiO2 10/20/25 11:39 99 24 N/Cannula Low lpm 2.0 10/20/25 11:39 99 24 10/20/25 11:00 97.9 94 22 113/71 98 Nasal Cannula 2.0 LABS: Hematology Labs: Test 10/20/25 04:24 10/19/25 05:01 10/18/25 17:42 Range/Units White Blood Count 7.9 4.8-10.8 K/uL Red Blood Count 3.85 L 4.00-5.50 MIL/uL Hemoglobin 8.5 L 12.0-16.0 g/dL Hematocrit 29.3 L 36-48 % Mean Corpuscular Volume 76.1 L 79-99 fL Mean Corpuscular Hemoglobin 22.1 L 27.0-33.0 pg Mean Corpuscular Hemoglobin Concent 29.0 L 32.0-36.0 g/dL Red Cell Distribution Width 27.4 H 11.0-15.5 % Platelet Count 287 130-400 K/uL Mean Platelet Volume 10.3 7.5-10.5 fL Nucleated Red Blood Cells 0.0 0.0-0.19 % Immature Granulocyte % (Auto) 0.4 0-1 % Neutrophils (%) (Auto) 81.2 H 40.0-77.0 % Lymphocytes (%) (Auto) 9.8 L 21.0-51.0 % Monocytes (%) (Auto) 6.8 3.0-13.0 % Eosinophils (%) (Auto) 1.2 0.0-8.0 % Basophils (%) (Auto) 0.6 0.0-5.0 % Neutrophils # (Auto) 7.6 1.8-7.7 K/uL Lymphocytes # (Auto) 0.9 L 1.0-4.8 K/uL Monocytes # (Auto) 0.6 0.1-1.0 K/uL Eosinophils # (Auto) 0.11 0.00-0.70 K/uL Basophils # (Auto) 0.06 0.00-0.20 K/uL Absolute Immature Granulocyte (auto 0.04 0-1 K/uL White Cell Morphology Comment See comments Red Blood Cell Morphology See comments Chemistry Labs: Test 10/20/25 15:59 10/20/25 04:24 10/18/25 17:42 Range/Units Whole Blood Glucose 137 H 70-110 MG/DL Bedside Glucose Comment Notified Nurse Sodium Level 138 136-145 mmol/L Potassium Level 3.4 L 3.5-5.1 mmol/L Chloride Level 102 101-111 mmol/L Carbon Dioxide Level 25 21-32 mmol/L Blood Urea Nitrogen 27 H 7-18 mg/dL Creatinine 1.6 H 0.5-1.0 mg/dL Glomerular Filtration Rate Calc 38 >90 mL/min Random Glucose 133 #H 70-105 mg/dL Total Calcium 8.5 8.5-10.1 mg/dL Phosphorus Level 3.4 2.5-4.9 mg/dL Magnesium Level 1.70 L 1.80-2.40 mg/dL Total Bilirubin 0.8 0.2-1.0 mg/dL Aspartate Amino Transf (AST/SGOT) 36 10-37 U/L Alanine Aminotransferase (ALT/SGPT) 32 12-78 U/L Alkaline Phosphatase 265 H 50-136 U/L Total Protein 6.3 6.0-8.3 g/dL Albumin 1.7 L 3.5-5.0 g/dL Lactic Acid Level 1.6 0.8-2.5 mmol/L Total Creatine Kinase 119 21-232 U/L Troponin I High Sensitivity 22 4-50 ng/L B-Type Natriuretic Peptide 3050 H 0-100 pg/mL Procalcitonin 0.10 0.05-0.5 ng/mL Coagulation Labs: Test 10/18/25 17:42 Range/Units Prothrombin Time 11.8 H 9.6-11.6 SEC Prothromb Time International Ratio 1.13 0.85-1.15 Activated Partial Thromboplast Time 25.8 L 26.3-35.5 SEC DIAGNOSTICS / RADIOLOGY RESULTS: PLAN NEURO: Minimize central acting medications as possible. Maintain fall precautions, adequate lighting during the day PULMONARY: Supplemental 02 as needed. Maintain aspiration precautions at all times CARDIOVASCULAR: Follow hemodynamics. Vital signs per facility protocol GI & NUTRITION: Continue with nutritional support. Continue stool softeners and laxatives as needed. KIDNEYS & ELECTROLYTES: Strict monitoring of intake, output and overall fluid balance. Avoid nephrotoxic medications to the extent possible. Medications to be dosed according to renal function. Monitor electrolytes and replace as needed ENDOCRINE: Maintain blood glucose between 100-180 at all times. Hypoglycemia protocol in place INFECTIOUS DISEASE: Trend temperature, WBC and procalcitonin level Follow cultures, deescalate antibiotics as soon as possible. Panculture if new onset fever ONCOLOGY/HEMATOLOGY/COAGULATION: Monitor for s/s of bleeding Monitor hemoglobin, coagulation studies as needed SKIN: Pressure ulcer prevention per facility protocol Specialty mattress Wound care to left TMA ORTHO/REHAB: Continue PT/OT Prophylaxis: Continue GI and DVT prophylaxis Pantoprazole and Heparin Code Status: Full Resuscitation Disposition: HANG PATEL Y JENNY Oct 20, 2025 16:34
--- NOTE | 2025-10-20 17:53 | NUR ---
SPEECH NOTE: CLINICAL INFORMATICS EDUCATOR coordinated with nurse Patricia. As per nurse, no concerns or reports of s/s of aspiration. CLINICAL INFORMATICS EDUCATOR asked patient and she continues with globus sensation with dry textures and pain due to swollen uvula. As per patient, strep test came back negative. Continue with regular solids (MOIST) until discomfort of uvula subsides. All questions answered. Addendum: 10/20/[address] [facility] Amended: Links added.
--- NOTE | 2025-10-20 22:34 | PN ---
SUBJECTIVE: A 55-year-old female, afebrile, white count 7.9, hemoglobin 8.5 and hematocrit 29.3, glucose 116, BUN and creatinine 27 and 1.6, albumin 1.7. The patient was admitted to the hospital for evaluation of low O2 saturations, found to have hypoxia, increased general edema, hands, legs, and face. The patient also has had difficulty swallowing past several days. The patient is status post transmetatarsal amputation to her foot on the left. The patient has been followed by edge burnisher, Dr. Angel Gonzalez. The patient had arterial Doppler studies of the left lower extremity. Common femoral, superficial femoral, popliteal, posterior tibial arteries are patent and demonstrate normal triphasic waveforms. Anterior tibial artery demonstrated monophasic waveforms. PAST MEDICAL HISTORY: Significant for congestive heart failure, diabetes, hypertension, myocardial infarction, status post revascularization procedure of left lower extremity by the Cardiology Service status post transmetatarsal amputation on the left. REVIEW OF SYSTEMS: CONSTITUTIONAL: No chills, fevers, or night sweats. GASTROINTESTINAL: No nausea or vomiting. No diarrhea. PULMONARY: Relates no current shortness of breath. GENITOURINARY: Elevated renal function with a BUN and creatinine level 27 and 1.6. ENDOCRINE: Diabetes. Blood sugar 116. PSYCHIATRIC: Denied any depression. MUSCULOSKELETAL: Transmetatarsal amputation on the left. INTEGUMENT: Demarcating dry necrotic eschar to the stump of the transmetatarsal amputation on the left approximately 12 cm x 9 cm. OBJECTIVE: The patient is currently afebrile, 97.5, pulse 95, respirations 18, blood pressure 106/63. Her examination today showed the left foot is warm. Cannot palpate her pedal pulses. Dry necrotic eschar also to the stump of the transverse metatarsal amputation on the left measuring approximately 12 x 9 cm. There is a demarcating necrosis of the plantar flap of the transmetatarsal amputation on the left. Arterial Doppler studies suggest occlusion of the anterior tibial artery. The patient is being followed by Dr. Angel Gonzalez. The patient is currently receiving IV cefepime. PLAN: We will request evaluation of her circulation status to the left lower extremity by her edge burnisher, Dr. Angel Gonzalez. The patient has abnormal arterial Doppler studies and demarcated necrosis to the plantar flap of the left foot transmetatarsal amputation site. TID: [id number] RECEIPT: [id number]
[2025-10-21] VITALS (14 sets, daily range): BP systolic 111–142; BP diastolic 67–89; PULSE 93–103; RESP 18–28; TEMP 97–98.4; O2SAT 98–100
[2025-10-21 04:14] LABS: NUCLEATED RED BLOOD CELLS 0.0 % (0.0-0.19); PLATELET COUNT (AUTO) 276.0 K/uL (130-400); RED BLOOD CELL COUNT(AUTO) 3.77 MIL/uL (4.00-5.50); RED CELL DISTRIBUTION WIDTH 27.8 % (11.0-15.5); WHITE BLOOD COUNT (AUTO) 7.6 K/uL (4.8-10.8)
[2025-10-21 04:30] LABS: ASPARTATE AMINOTRANSFERASE 32.0 U/L (10-37); CREATININE 1.4 mg/dL (0.5-1.0); GLOMERULAR FILTR. RATE CALC 44.0 mL/min (>90); GLUCOSE,RANDOM 124.0 mg/dL (70-105); PHOSPHORUS 2.8 mg/dL (2.5-4.9); SODIUM SERUM 140.0 mmol/L (136-145); TOTAL PROTEIN, SERUM 6.3 g/dL (6.0-8.3); UREA NITROGEN, BLOOD 23.0 mg/dL (7-18)
--- NOTE | 2025-10-21 14:48 | PN ---
[facility] PROGRESS NOTE Date Patient Seen: Oct 21, 2025 Time of Visit: 13:47 Supervising Physician: Dr. Rosalio Zhang Primary Care Physician: Ger Zhang Outpatient Specialists: [ ] Inpatient Consults: Dr. Cox, Dr. Angel Ingram PROBLEM LIST: Acute hypoxic respiratory failure, likely from right-sided pleural effusion, POA Right-sided pleural effusion, POA Acute diastolic CHF exacerbation,50-55%, stage III diastolic dysfunction Sepsis, multifactorial, likely from respiratory, genitourinary infection, initial lactic acid is normal, procal normal POA Acute complicated cystitis, POA Difficulty swallowing Left foot TMA wound care Hypertension, POA Hyperlipidemia, POA DM type II, with hyperglycemia, POA Acute kidney injury, POA Class two obesity, BMI of 35.5, POA History of CAD, status post two-vessel CABG, August 2024, POA History of peripheral vascular disease, status post left TMA with Dr. Cox, 09/2025 at [facility], [facility] INTERVAL HISTORY: Patient evaluated at bedside today. She is awake, alert and oriented x 3. Denies chest pain, abdominal pain, nausea,or vomiting. She continues on oxygen 2 LPM NC. Patient states she is feeling so much better. Bedside nurse reports no acute overnight incidents. PLAN: Continue with IV Doxycycline and Cefepime Pending thoracentesis for right side pleural effusion to be done Friday10/23/25 Hold Plavix last dose 10/19/25 Dr. Cox for left foot wound care Consult Dr. Angel Ingram, cardiology Follow speech recommendations VS per unit protocol Continue with IV Lasix Continue with Heparin BID Avoid nephrotoxic agents Renally dose all medications Treat fever aggressively Follow up culture results Keep head of bed above 30 Continue O2 therapy Incentive spirometry DuoNeb q.6 as needed for shortness of breaths CBC, CMP, magnesium level daily REVIEW OF SYSTEMS: 12 point ROS reviewed with patient. Pertinent positives mentioned above. Otherwise negative. PHYSICAL EXAM: GENERAL: alert, weak, awake oriented x 3 HEENT: EOMI, Sclera non icteric, moist mucosa NECK: Supple, no JVD, trachea midline LUNGS: Diminished right lung rizo on auscultation HEART: Regular rate and rhythm. Normal S1 and S2, without murmurs ABD: Abdomen soft, nontender. Bowel sounds present EXT: No clubbing cyanosis or edema, left foot TMA NEURO: Alert and oriented to person, follows commands Vital Signs (last 8hr) Date Time Temp Pulse Resp B/P (MAP) Pulse Ox O2 Delivery O2 Flow Rate FiO2 10/21/25 12:29 102 18 10/21/25 12:28 102 18 N/Cannula Low lpm 2.0 28 10/21/25 11:00 97.3 102 20 136/85 97 Room Air 10/21/25 07:02 93 20 N/Cannula Low lpm 2.0 10/21/25 07:02 93 20 10/21/25 07:00 97.9 96 24 130/84 100 Nasal Cannula 2.0 LABS: Hematology Labs: Test 10/21/25 04:07 Range/Units White Blood Count 7.6 4.8-10.8 K/uL Red Blood Count 3.77 L 4.00-5.50 MIL/uL Hemoglobin 8.5 L 12.0-16.0 g/dL Hematocrit 29.2 L 36-48 % Mean Corpuscular Volume 77.5 L 79-99 fL Mean Corpuscular Hemoglobin 22.5 L 27.0-33.0 pg Mean Corpuscular Hemoglobin Concent 29.1 L 32.0-36.0 g/dL Red Cell Distribution Width 27.8 H 11.0-15.5 % Platelet Count 276 130-400 K/uL Mean Platelet Volume 10.4 7.5-10.5 fL Nucleated Red Blood Cells 0.0 0.0-0.19 % Chemistry Labs: Test 10/21/25 11:35 10/21/25 04:07 10/20/25 15:59 Range/Units Whole Blood Glucose 98 70-110 MG/DL Sodium Level 140 136-145 mmol/L Potassium Level 3.5 3.5-5.1 mmol/L Chloride Level 104 101-111 mmol/L Carbon Dioxide Level 30 21-32 mmol/L Blood Urea Nitrogen 23 H 7-18 mg/dL Creatinine 1.4 H 0.5-1.0 mg/dL Glomerular Filtration Rate Calc 44 >90 mL/min Random Glucose 124 H 70-105 mg/dL Total Calcium 8.4 L 8.5-10.1 mg/dL Phosphorus Level 2.8 2.5-4.9 mg/dL Magnesium Level 1.90 1.80-2.40 mg/dL Total Bilirubin 0.9 0.2-1.0 mg/dL Aspartate Amino Transf (AST/SGOT) 32 10-37 U/L Alanine Aminotransferase (ALT/SGPT) 36 12-78 U/L Alkaline Phosphatase 260 H 50-136 U/L Total Protein 6.3 6.0-8.3 g/dL Albumin 1.7 L 3.5-5.0 g/dL Bedside Glucose Comment Notified Nurse DIAGNOSTICS / RADIOLOGY RESULTS: PLAN NEURO: Minimize central acting medications as possible. Maintain fall precautions, adequate lighting during the day PULMONARY: Supplemental 02 as needed. Maintain aspiration precautions at all times CARDIOVASCULAR: Follow hemodynamics. Vital signs per facility protocol GI & NUTRITION: Continue with nutritional support. Continue stool softeners and laxatives as needed. KIDNEYS & ELECTROLYTES: Strict monitoring of intake, output and overall fluid balance. Avoid nephrotoxic medications to the extent possible. Medications to be dosed according to renal function. Monitor electrolytes and replace as needed ENDOCRINE: Maintain blood glucose between 100-180 at all times. Hypoglycemia protocol in place INFECTIOUS DISEASE: Trend temperature, WBC and procalcitonin level Follow cultures, deescalate antibiotics as soon as possible. Panculture if new onset fever ONCOLOGY/HEMATOLOGY/COAGULATION: Monitor for s/s of bleeding Monitor hemoglobin, coagulation studies as needed SKIN: Pressure ulcer prevention per facility protocol Specialty mattress Wound care to left TMA ORTHO/REHAB: Continue PT/OT Prophylaxis: Continue GI and DVT prophylaxis Pantoprazole and Heparin Code Status: Full Resuscitation Disposition: HANG PATEL APRN Oct 21, 2025 14:48 BRANDON ZHANG [employer]STENER DRIVER Oct 22, 2025 08:32
--- NOTE | 2025-10-21 15:35 | NUR ---
CM NOTE ERVIN spoke to Dr. Cox to discuss plan of care. States he is waiting for film coater's recommendations to decide on treatment for patient. Not medically cleared yet for d/c planning. ERVIN spoke to Suki with [facility]. States patient will need a new insurance auth to return to facility.
--- NOTE | 2025-10-21 21:24 | PN ---
SUBJECTIVE: A 55-year-old diabetic female seen afebrile, 98.2, pulse 93, respirations 21, blood pressure 122/78, white count 7.6, H and H 8.5 and 29.2, platelets 276, BUN and creatinine 23 and 1.4, glucose 113, and the patient is being followed for acute hypoxic respiratory failure, likely from right-sided pleural effusion; congestive heart failure, sepsis, acute complicated cystitis, difficulty swallowing, left foot transmetatarsal amputation, left lower extremity peripheral vascular disease, hypertension, hyperlipidemia, type 2 diabetes, acute kidney injury, obesity, coronary artery disease, status post 2-vessel CABG 08/2024, peripheral vascular disease. She is pending thoracentesis for right-sided pleural effusion. The patient had left lower extremity arterial Doppler studies. Anterior tibial, dorsalis pedis arteries, monophasic, normal triphasic flow pattern in the common femoral, superficial femoral, popliteal, and posterior tibial arteries. She is status post revascularization procedure left lower extremity by Cardiology Service and status post transmetatarsal amputation on the left. REVIEW OF SYSTEMS: CONSTITUTIONAL: No chills, fevers, night sweats. GASTROINTESTINAL: Difficulty swallowing secondary to swollen uvula. PULMONARY: Being evaluated for thoracentesis due to right-sided pleural effusion. GENITOURINARY: Being followed for acute complicated cystitis. ENDOCRINE: Diabetes. PSYCHIATRIC: Denied any depression. MUSCULOSKELETAL: Transmetatarsal amputation on the left. INTEGUMENTARY: Demarcating dry necrosis to the stump of the transmetatarsal amputation on the left, 12 x 9 cm. OBJECTIVE: On examination, a left foot is warm, demarcating necrosis of the flap, 9 x 12 cm area. ASSESSMENT: Demarcating necrosis of the plantar flap of the left transmetatarsal amputation. Arterial Doppler study suggests occlusion of the anterior tibial artery and the dorsalis pedis artery. Patent blood flow by left femoral, popliteal, and posterior tibial on that left side. PLAN: Would request evaluation of her circulation status to the left lower extremity by her water conservation specialist, Dr. Angel Gonzalez, due to abnormal arterial Doppler studies, anterior tibial and dorsalis pedis artery and the demarcating necrosis of plantar flap of the transmetatarsal amputation. Continue with the antibiotics. Continue with Betadine dressings. Continue with off-loading measures. Follow the patient closely while in-house. TID: [id number] RECEIPT: [id number]
[2025-10-22] VITALS (16 sets, daily range): BP systolic 112–135; BP diastolic 67–91; PULSE 97–118; RESP 16–22; TEMP 97.5–98.5; O2SAT 96–100
[2025-10-22 05:52] LABS: NUCLEATED RED BLOOD CELLS 0.0 % (0.0-0.19); PLATELET COUNT (AUTO) 269 K/uL (130-400); RED BLOOD CELL COUNT(AUTO) 4.24 MIL/uL (4.00-5.50); RED CELL DISTRIBUTION WIDTH 28.0 % (11.0-15.5); WHITE BLOOD COUNT (AUTO) 6.7 K/uL (4.8-10.8)
[2025-10-22 06:29] LABS: ASPARTATE AMINOTRANSFERASE 37.0 U/L (10-37); CREATININE 1.1 mg/dL (0.5-1.0); GLOMERULAR FILTR. RATE CALC 59.0 mL/min (>90); GLUCOSE,RANDOM 99.0 mg/dL (70-105); SODIUM SERUM 141.0 mmol/L (136-145); TOTAL PROTEIN, SERUM 6.7 g/dL (6.0-8.3); UREA NITROGEN, BLOOD 22.0 mg/dL (7-18)
--- NOTE | 2025-10-22 11:28 | PN ---
[facility] PROGRESS NOTE Date Patient Seen: Oct 22, 2025 Time of Visit: 11:28 Supervising Physician: Dr. Rosalio Zhang Primary Care Physician: Ger Zhang Outpatient Specialists: [ ] Inpatient Consults: Dr. Cox, Dr. Angel Ingram PROBLEM LIST: Acute hypoxic respiratory failure, likely from right-sided pleural effusion, POA Right-sided pleural effusion, POA Acute diastolic CHF exacerbation,50-55%, stage III diastolic dysfunction Sepsis, multifactorial, likely from respiratory, genitourinary infection, initial lactic acid is normal, procal normal POA Acute complicated cystitis, POA Difficulty swallowing Left foot TMA wound care Hypertension, POA Hyperlipidemia, POA DM type II, with hyperglycemia, POA Acute kidney injury, POA Class two obesity, BMI of 35.5, POA History of CAD, status post two-vessel CABG, August 2024, POA History of peripheral vascular disease, status post left TMA with Dr. Cox, 09/2025 at [facility], [facility] INTERVAL HISTORY: Patient evaluated at bedside today. She is sitting up in high fowlers. She is awake, alert and oriented x 3. Denies chest pain, abdominal pain, nausea,or vomiting. She continues on oxygen 2 LPM NC. Patient reports increased shortness of breath. States she feels worse today. Upon auscultation breath sound diminished bilateral lower lobes. Bedside nurse reports patient having shortness of breath on 2 LPM. Prognosis is guarded, high risk for decompensation. PLAN: Continue with IV Doxycycline and Cefepime Thoracentesis today by Dr. Rosalio Zhang Pending CXR results CPT with nebulizer treatment Hold Plavix last dose 10/19/25 Dr. Cox for left foot wound care Consult Dr. Angel Ingram, cardiology Follow speech recommendations VS per unit protocol Continue with IV Lasix Continue with Heparin BID Avoid nephrotoxic agents Renally dose all medications Treat fever aggressively Follow up culture results Keep head of bed above 30 Continue O2 therapy Incentive spirometry DuoNeb q.6 as needed for shortness of breaths CBC, CMP, magnesium level daily Total patient care time exceeds 37 minutes, excluding all procedures, plan of care agreed upon by physician. REVIEW OF SYSTEMS: 12 point ROS reviewed with patient. Pertinent positives mentioned above. Otherwise negative. PHYSICAL EXAM: GENERAL: alert, weak, awake oriented x 3 HEENT: EOMI, Sclera non icteric, moist mucosa NECK: Supple, no JVD, trachea midline LUNGS: Diminished bilateral lower lobes HEART: Regular rate and rhythm. Normal S1 and S2, without murmurs ABD: Abdomen soft, nontender. Bowel sounds present EXT: No clubbing cyanosis or edema, left foot TMA NEURO: Alert and oriented to person, follows commands Vital Signs (last 8hr) Date Time Temp Pulse Resp B/P (MAP) Pulse Ox O2 Delivery O2 Flow Rate FiO2 10/22/25 11:24 102 18 10/22/25 11:23 102 20 N/Cannula Low lpm 2.0 10/22/25 07:19 98.1 100 18 112/67 100 Nasal Cannula 2.0 10/22/25 06:51 97 18 10/22/25 06:51 97 20 N/Cannula Low lpm 2.0 10/22/25 04:00 97.5 99 22 121/68 97 Nasal Cannula 2.0 LABS: Hematology Labs: Test 10/22/25 05:41 Range/Units White Blood Count 6.7 4.8-10.8 K/uL Red Blood Count 4.24 4.00-5.50 MIL/uL Hemoglobin 9.5 L 12.0-16.0 g/dL Hematocrit 32.7 L 36-48 % Mean Corpuscular Volume 77.1 L 79-99 fL Mean Corpuscular Hemoglobin 22.4 L 27.0-33.0 pg Mean Corpuscular Hemoglobin Concent 29.1 L 32.0-36.0 g/dL Red Cell Distribution Width 28.0 H 11.0-15.5 % Platelet Count 269 130-400 K/uL Mean Platelet Volume 7.5-10.5 fL Nucleated Red Blood Cells 0.0 0.0-0.19 % Chemistry Labs: Test 10/22/25 05:41 10/22/25 04:56 10/21/25 04:07 10/20/25 15:59 Range/Units Sodium Level 141 136-145 mmol/L Potassium Level 3.6 3.5-5.1 mmol/L Chloride Level 105 101-111 mmol/L Carbon Dioxide Level 26 21-32 mmol/L Blood Urea Nitrogen 22 H 7-18 mg/dL Creatinine 1.1 H 0.5-1.0 mg/dL Glomerular Filtration Rate Calc 59 >90 mL/min Random Glucose 99 70-105 mg/dL Total Calcium 8.6 8.5-10.1 mg/dL Total Bilirubin 1.3 H 0.2-1.0 mg/dL Aspartate Amino Transf (AST/SGOT) 37 10-37 U/L Alanine Aminotransferase (ALT/SGPT) 37 12-78 U/L Alkaline Phosphatase 263 H 50-136 U/L Total Protein 6.7 6.0-8.3 g/dL Albumin 1.9 L 3.5-5.0 g/dL Whole Blood Glucose 95 70-110 MG/DL Phosphorus Level 2.8 2.5-4.9 mg/dL Magnesium Level 1.90 1.80-2.40 mg/dL Bedside Glucose Comment Notified Nurse DIAGNOSTICS / RADIOLOGY RESULTS: n/a PLAN NEURO: Minimize central acting medications as possible. Maintain fall precautions, adequate lighting during the day PULMONARY: Supplemental 02 as needed. Maintain aspiration precautions at all times CARDIOVASCULAR: Follow hemodynamics. Vital signs per facility protocol GI & NUTRITION: Continue with nutritional support. Continue stool softeners and laxatives as needed. KIDNEYS & ELECTROLYTES: Strict monitoring of intake, output and overall fluid balance. Avoid nephrotoxic medications to the extent possible. Medications to be dosed according to renal function. Monitor electrolytes and replace as needed ENDOCRINE: Maintain blood glucose between 100-180 at all times. Hypoglycemia protocol in place INFECTIOUS DISEASE: Trend temperature, WBC and procalcitonin level Follow cultures, deescalate antibiotics as soon as possible. Panculture if new onset fever ONCOLOGY/HEMATOLOGY/COAGULATION: Monitor for s/s of bleeding Monitor hemoglobin, coagulation studies as needed SKIN: Pressure ulcer prevention per facility protocol Specialty mattress Wound care to left TMA ORTHO/REHAB: Continue PT/OT Prophylaxis: Continue GI and DVT prophylaxis Pantoprazole and Heparin Code Status: Full Resuscitation Disposition: IRENA LARKINHANG LIZ Norm ALVARADO Oct 22, 2025 11:28
[2025-10-22] MEDS: LIDOCAINE HCL 400MG/20ML VIAL ONE (12:42)
[2025-10-22 17:16] LABS: BODY FLUID RBC 239 /cu. mm.; BODY FLUID WBC 157 /cu. mm.
--- NOTE | 2025-10-22 17:16 | NUR ---
1610 RT THORA PROCEDURE AT BEDSIDE TIME OUT DONE AT THIS TIME. 1616 RT THORACENTESIS PROCEDURE STARTED BY DR. ALMA GALLOWAY AT BEDSIDE. 1621 RT THORACENTESIS PROCEDURE COMPLETED BY DR. ALMA GALLOWAY AT BEDSIDE. PT TOLERATED, PLEURAL FLUID TAKEN TO LAB. PLEASE REFER TO MD NOTES AND VITAL SIGNS IN [facility].
[2025-10-22 17:36] LABS: GLUCOSE PLEURAL FLUID 114; PROTEIN PLEURAL FLUID 1.7 mg/dL
[2025-10-22 17:43] LABS: BF LYMPHOCYTE 2 %; BF MACROPHAGE 66; BF NEUTROPHIL 30.0 %; BF OTHER CELLS 2; BF TOTAL CELLS COUNTED 100
--- NOTE | 2025-10-22 17:46 | HMCIMG ---
STUDY CR chest, 2 view. HISTORY Post right thoracentesis. TECHNIQUE Frontal and lateral radiographs of the chest. COMPARISON Chest radiographs dated 10/22/2025 09:01 EST and 10/18/2025 18:02 EST, and chest CT dated 10/18/2025 21:45 EST. FINDINGS Lungs Persistent right basilar airspace opacity compatible with compressive atelectasis adjacent to pleural fluid. No new focal consolidation is identified. Pleural spaces Moderate right pleural effusion persists. No definite pneumothorax is identified. No significant left pleural effusion is seen. Mediastinum and heart Cardiomegaly is present with median sternotomy sutures in place. Pulmonary vascular congestion is noted, with features of interstitial pulmonary edema. Bones and soft tissues Median sternotomy changes as above. No acute osseous abnormality is identified. IMPRESSION * Moderate persistent right pleural effusion with associated compressive atelectasis of the right lung, without evidence of post-thoracentesis pneumothorax. * Cardiomegaly with pulmonary vascular congestion and interstitial pulmonary edema in the setting of prior median sternotomy. /[place]
[2025-10-22 18:03] LABS: SPECIMENTYPE,BODY FLUID PLEURAL
[2025-10-22 18:04] LABS: APPEARANCE BODY FLUID CLEAR (CLEAR); COLOR,BODY FLUID YELLOW (LT YELLOW); TOTAL VOLUME,BODY FLUID 700 mL
[2025-10-22 18:06] LABS: PH PLEURAL FLUID 8
--- NOTE | 2025-10-22 20:53 | PRN ---
Procedure: Thoracentesis Procedure Note Thoracentesis: Indication: Large pleural effusion to the right lung A time-out was completed verifying correct patient, procedure, site, positioning, and special equipment if applicable. The patients RIGHT side was prepped and draped in a sterile manner after the appropriate infiltration level was confirmed by ultrasound. 1% lidocaine was used anesthetize the surrounding skin. A finder needle was then used to locate fluid and clear yellow fluid was obtained. A 10-blade scalpel used to make the incision. The thoracentesis catheter was then threaded without difficulty. The patient had [700 mL] of clear yellow fluid removed. A post-procedure chest x-ray was ordered and the fluid will be sent for several studies. Estimated Blood Loss: [10 cc] The patient tolerated the procedure well and there were no complications. I personally scribed for ALMA GALLOWAY MD ([place]) on 10/22/25 at 20:53. Electronically submitted by Erlin Flores ([facility]). ALMA GALLOWAY MD Oct 22, 2025 20:53
[2025-10-23] VITALS (13 sets, daily range): BP systolic 115–127; BP diastolic 72–81; PULSE 100–118; RESP 16–20; TEMP 97.8–98.4; O2SAT 96–99
--- NOTE | 2025-10-23 00:05 | HMCIMG ---
STUDY: X-RAY OF THE CHEST, 1 VIEW HISTORY: Pleural effusion. TECHNIQUE: A single frontal view of the chest is submitted for interpretation. COMPARISON: CT scan of the chest without contrast from 10/18/2025 at 21:45 and chest radiograph, 1 view, from 10/18/2025 at 18:02. FINDINGS: Pulmonary rizo: Large right hemithorax opacity with obscuration of the right hemidiaphragm and right heart border, consistent with a large right pleural effusion with associated underlying airspace opacity/volume loss that likely reflects compressive atelectasis. The left lung is relatively clear without focal consolidation. No pneumothorax is identified. Cardiac silhouette: Cardiac silhouette is enlarged, compatible with cardiomegaly. Mediastinum and sera: Mediastinal contours and central airways are unremarkable without definite mediastinal widening or hilar mass. Osseous structures: Median sternotomy wires are present. Visualized ribs, clavicles, and thoracic spine show no acute displaced fracture or destructive osseous lesion. Miscellaneous: Right costophrenic angle is obscured by the large effusion. Left costophrenic angle is sharp. Pulmonary vascular markings are prominent centrally, compatible with pulmonary vascular congestion. No subdiaphragmatic free air is seen. IMPRESSION: * Large right pleural effusion with associated right lung volume loss and basilar airspace opacity, most consistent with compressive/passive atelectasis; in the appropriate clinical setting (fever, leukocytosis), a superimposed pneumonia cannot be excluded. Recommend correlation with clinical and laboratory findings, with consideration of therapeutic/diagnostic thoracentesis and follow-up chest imaging after drainage to assess for any underlying parenchymal lesion. * Cardiomegaly with pulmonary vascular congestion, without radiographic evidence of carlos pulmonary edema. These findings are stable compared with the prior chest radiograph from 10/18/2025 and are in keeping with underlying cardiomyopathy or volume overload; correlation with echocardiography, BNP, and overall volume status is recommended for further management. * Compared with the CT chest without contrast and chest radiograph from 10/18/2025, the large right pleural effusion and associated right lung passive collapse are grossly unchanged, while the previously described small left pleural effusion with adjacent passive atelectasis is not well visualized on the current radiograph, suggesting it is resolved or below the threshold of detection on this single-view study. /[place]
--- NOTE | 2025-10-23 03:36 | NUR ---
patient requesting pain medication for pain 05/19. paged [facility]. taha new order: change dilaudid 0.5 mg IV from q8h to Q6H order.
[2025-10-23] MEDS: SENNOSIDES 8.6 MG TABLET PO PRN (04:01)
[2025-10-23 04:26] LABS: NUCLEATED RED BLOOD CELLS 0.0 % (0.0-0.19); PLATELET COUNT (AUTO) 313.0 K/uL (130-400); RED BLOOD CELL COUNT(AUTO) 4.23 MIL/uL (4.00-5.50); RED CELL DISTRIBUTION WIDTH 28.5 % (11.0-15.5); WHITE BLOOD COUNT (AUTO) 10.7 K/uL (4.8-10.8)
[2025-10-23 04:58] LABS: ASPARTATE AMINOTRANSFERASE 40.0 U/L (10-37); CREATININE 1.1 mg/dL (0.5-1.0); GLOMERULAR FILTR. RATE CALC 59.0 mL/min (>90); GLUCOSE,RANDOM 125.0 mg/dL (70-105); SODIUM SERUM 142.0 mmol/L (136-145); TOTAL PROTEIN, SERUM 6.7 g/dL (6.0-8.3); UREA NITROGEN, BLOOD 21.0 mg/dL (7-18)
[2025-10-23] MEDS: SENNOSIDES 8.6 MG TABLET PO SCH (09:46)
--- NOTE | 2025-10-23 13:42 | PN ---
[facility] PROGRESS NOTE Date Patient Seen: Oct 23, 2025 Time of Visit: 13:36 Supervising Physician: Dr. Rosalio Zhang Primary Care Physician: Ger Zhang Outpatient Specialists: [ ] Inpatient Consults: Dr. Cox, Dr. Angel Ingram PROBLEM LIST: Acute hypoxic respiratory failure, likely from right-sided pleural effusion, POA Right-sided pleural effusion, POA Acute diastolic CHF exacerbation,50-55%, stage III diastolic dysfunction Sepsis, multifactorial, likely from respiratory, genitourinary infection, initial lactic acid is normal, procal normal POA Acute complicated cystitis, POA Difficulty swallowing Left foot TMA wound care Hypertension, POA Hyperlipidemia, POA DM type II, with hyperglycemia, POA Acute kidney injury, POA Class two obesity, BMI of 35.5, POA History of CAD, status post two-vessel CABG, August 2024, POA History of peripheral vascular disease, status post left TMA with Dr. Cox, 09/2025 at [facility], [facility] INTERVAL HISTORY: Patient evaluated at bedside today. She is laying down comfortably in bed on her right side. She is awake, alert and oriented x 3. Denies chest pain, abdominal pain, nausea,or vomiting. She continues on oxygen 2 LPM NC. Patient states she feeling better today and was able to sleep well after the thoracentesis done yesterday by . Bedside nurse reports no acute incidents PLAN: Continue with IV Doxycycline and Cefepime CPT with nebulizer treatment Hold Plavix last dose 10/19/25 Dr. Cox for left foot wound care Consult Dr. Angel Ingram, cardiology Follow speech recommendations VS per unit protocol Continue with IV Lasix Continue with Heparin BID Avoid nephrotoxic agents Renally dose all medications Treat fever aggressively Follow up culture results Keep head of bed above 30 Continue O2 therapy Incentive spirometry DuoNeb q.6 as needed for shortness of breaths CBC, CMP, magnesium level daily REVIEW OF SYSTEMS: 12 point ROS reviewed with patient. Pertinent positives mentioned above. Otherwise negative. PHYSICAL EXAM: GENERAL: alert, weak, awake oriented x 3 HEENT: EOMI, Sclera non icteric, moist mucosa NECK: Supple, no JVD, trachea midline LUNGS: Diminished bilateral lower lobes HEART: Regular rate and rhythm. Normal S1 and S2, without murmurs ABD: Abdomen soft, nontender. Bowel sounds present EXT: No clubbing cyanosis or edema, left foot TMA NEURO: Alert and oriented to person, follows commands Vital Signs (last 8hr) Date Time Temp Pulse Resp B/P (MAP) Pulse Ox O2 Delivery O2 Flow Rate FiO2 10/23/25 11:50 98.1 108 16 119/75 99 Nasal Cannula 2.0 10/23/25 11:34 101 18 10/23/25 11:33 105 20 N/Cannula Low lpm 2.0 28 10/23/25 08:11 98.1 109 16 120/81 98 Nasal Cannula 2.0 10/23/25 07:07 105 20 N/Cannula Low lpm 2.0 28 10/23/25 07:07 105 18 LABS: Hematology Labs: Test 10/23/25 04:13 Range/Units White Blood Count 10.7 # 4.8-10.8 K/uL Red Blood Count 4.23 4.00-5.50 MIL/uL Hemoglobin 9.5 L 12.0-16.0 g/dL Hematocrit 32.4 L 36-48 % Mean Corpuscular Volume 76.6 L 79-99 fL Mean Corpuscular Hemoglobin 22.5 L 27.0-33.0 pg Mean Corpuscular Hemoglobin Concent 29.3 L 32.0-36.0 g/dL Red Cell Distribution Width 28.5 H 11.0-15.5 % Platelet Count 313 130-400 K/uL Mean Platelet Volume 10.6 H 7.5-10.5 fL Nucleated Red Blood Cells 0.0 0.0-0.19 % Chemistry Labs: Test 10/23/25 11:20 10/23/25 04:13 Range/Units Whole Blood Glucose 111 H 70-110 MG/DL Sodium Level 142 136-145 mmol/L Potassium Level 4.1 3.5-5.1 mmol/L Chloride Level 105 101-111 mmol/L Carbon Dioxide Level 26 21-32 mmol/L Blood Urea Nitrogen 21 H 7-18 mg/dL Creatinine 1.1 H 0.5-1.0 mg/dL Glomerular Filtration Rate Calc 59 >90 mL/min Random Glucose 125 H 70-105 mg/dL Total Calcium 8.6 8.5-10.1 mg/dL Magnesium Level 1.50 L 1.80-2.40 mg/dL Total Bilirubin 1.5 H 0.2-1.0 mg/dL Aspartate Amino Transf (AST/SGOT) 40 H 10-37 U/L Alanine Aminotransferase (ALT/SGPT) 34 12-78 U/L Alkaline Phosphatase 245 H 50-136 U/L Lactate Dehydrogenase 510 H 81-234 U/L Total Protein 6.7 6.0-8.3 g/dL Albumin 1.8 L 3.5-5.0 g/dL PLAN NEURO: Minimize central acting medications as possible. Maintain fall precautions, adequate lighting during the day PULMONARY: Supplemental 02 as needed. Maintain aspiration precautions at all times CARDIOVASCULAR: Follow hemodynamics. Vital signs per facility protocol GI & NUTRITION: Continue with nutritional support. Continue stool softeners and laxatives as needed. KIDNEYS & ELECTROLYTES: Strict monitoring of intake, output and overall fluid balance. Avoid nephrotoxic medications to the extent possible. Medications to be dosed according to renal function. Monitor electrolytes and replace as needed ENDOCRINE: Maintain blood glucose between 100-180 at all times. Hypoglycemia protocol in place INFECTIOUS DISEASE: Trend temperature, WBC and procalcitonin level Follow cultures, deescalate antibiotics as soon as possible. Panculture if new onset fever ONCOLOGY/HEMATOLOGY/COAGULATION: Monitor for s/s of bleeding Monitor hemoglobin, coagulation studies as needed SKIN: Pressure ulcer prevention per facility protocol Specialty mattress Wound care to left TMA ORTHO/REHAB: Continue PT/OT Prophylaxis: Continue GI and DVT prophylaxis Pantoprazole and Heparin Code Status: Full Resuscitation Disposition: IRENA HANG MOSLEY Y JENNY Oct 23, 2025 13:42
--- NOTE | 2025-10-23 15:12 | HMCIMG ---
STUDY CR chest, 1 view. HISTORY Pleural effusion follow-up. TECHNIQUE Frontal and lateral radiographs of the chest. COMPARISON Chest radiographs dated 10/22/2025. FINDINGS Lungs No time interval changes with persistent right basilar airspace opacity consolidation with atelectasis adjacent to pleural fluid. No new focal consolidation is identified. Pleural spaces Unchanged moderate right pleural effusion persists. No definite pneumothorax is identified. No significant left pleural effusion is seen. Mediastinum and heart Cardiomegaly is present with median sternotomy sutures in place. Pulmonary vascular congestion is noted. Bones and soft tissues Median sternotomy changes as above. No acute osseous abnormality is identified. IMPRESSION: 1 .Persistent moderate right pleural effusion with associated right lower lobe consolidation, without significant interval change. 2. Cardiomegaly with pulmonary vascular congestion. 3. No significant interval change compared with the prior study dated 10/22/2025. /[place]
[2025-10-23] MEDS: ALBUTEROL 0.083% 2.5 MG/3 ML INH IH ONE (23:36)
[2025-10-23] MEDS: ALBUTEROL 0.042% 1.25MG/3ML IH ONE (23:36)
[2025-10-24] VITALS (14 sets, daily range): BP systolic 103–122; BP diastolic 62–83; PULSE 93–107; RESP 16–20; TEMP 97–98.4; O2SAT 98–100
[2025-10-24 04:01] LABS: NUCLEATED RED BLOOD CELLS 0.0 % (0.0-0.19); PLATELET COUNT (AUTO) 250 K/uL (130-400); RED BLOOD CELL COUNT(AUTO) 4.06 MIL/uL (4.00-5.50); RED CELL DISTRIBUTION WIDTH 28.3 % (11.0-15.5); WHITE BLOOD COUNT (AUTO) 8.8 K/uL (4.8-10.8)
[2025-10-24 04:22] LABS: ASPARTATE AMINOTRANSFERASE 30.0 U/L (10-37); CREATININE 1.0 mg/dL (0.5-1.0); GLOMERULAR FILTR. RATE CALC 67.0 mL/min (>90); GLUCOSE,RANDOM 115.0 mg/dL (70-105); SODIUM SERUM 143.0 mmol/L (136-145); TOTAL PROTEIN, SERUM 6.4 g/dL (6.0-8.3); UREA NITROGEN, BLOOD 20.0 mg/dL (7-18)
[2025-10-24] MEDS: ALBUTEROL 0.083% 2.5 MG/3 ML INH IH ONE (07:35)
--- NOTE | 2025-10-24 08:38 | PN ---
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 Angel Gonzalez. The patient is currently receiving doxycycline and cefepime. OBJECTIVE: The patient has currently been afebrile, 98.1, pulse 100, respirations 18, blood pressure 112/67. White count 6.7, H and H 9.5 and 32.7, platelets 269. BUN and creatinine 22 and 1.1, albumin 1.9. Examination today shows the left foot is warm, demarcating necrosis of the plantar flap area 6 x 9 cm, dry, stable eschar. No evidence of consolidated abscess or ascending cellulitis. ASSESSMENT: Demarcating necrosis of plantar flap of left transmetatarsal amputation. PLAN: Dr. Gonzalez, her retail bakery manager, has been consulted. Continue with doxycycline and cefepime. Continue with Betadine dressings. Continue to follow the patient closely while in-house. TID: [id number] RECEIPT: [id number]
[2025-10-24] MEDS: SACUBITRIL/VALSARTAN 1 EACH TABLET PO SCH (11:54)
[2025-10-24] MEDS: SPIRONOLACTONE 25 MG TAB PO SCH (11:54)
[2025-10-24] MEDS: GABAPENTIN 300 MG CAPSULE PO SCH (11:55)
[2025-10-24] MEDS: ASPIRIN 81 MG EC TAB PO SCH (11:55)
--- NOTE | 2025-10-24 13:58 | PN ---
[facility] PROGRESS NOTE Date Patient Seen: Oct 24, 2025 Time of Visit: 13:57 Supervising Physician: Dr. Hoff Primary Care Physician: Ger Zhang Outpatient Specialists: [ ] Inpatient Consults: Dr. Cox, Dr. Angel Ingram PROBLEM LIST: Acute hypoxic respiratory failure, likely from right-sided pleural effusion, POA Right-sided pleural effusion, POA Acute diastolic CHF exacerbation,50-55%, stage III diastolic dysfunction Sepsis, multifactorial, likely from respiratory, genitourinary infection, initial lactic acid is normal, procal normal POA Acute complicated cystitis, POA Difficulty swallowing Left foot TMA wound care Hypertension, POA Hyperlipidemia, POA DM type II, with hyperglycemia, POA Acute kidney injury, POA Class two obesity, BMI of 35.5, POA History of CAD, status post two-vessel CABG, August 2024, POA History of peripheral vascular disease, status post left TMA with Dr. Cox, 09/2025 at [facility], [facility] INTERVAL HISTORY: Patient evaluated at bedside today. She is laying down comfortably in bed on her right side. She is awake, alert and oriented x 3. Denies chest pain, abdominal pain, nausea,or vomiting. She continues on oxygen 2 LPM NC. Explained results of current xray, Persistent moderate right pleural effusion with associated right lower lobe consolidation, without significant interval change, and cardiomegaly with pulmonary vascular congestion. She let me know Dr. Ingram came to see her this morning. As per bedside nurse Dr. Gonzalez in to see patient this morning and is planning a peripheral angiogram for tomorrow. PLAN: Continue with IV Doxycycline and Cefepime CPT with nebulizer treatment Hold Plavix last dose 10/19/25 Dr. Cox for left foot wound care Consult Dr. Angel Ingram, cardiology Follow speech recommendations Continue with IV Lasix Continue with Heparin BID Avoid nephrotoxic agents Renally dose all medications Physical therapy Follow up culture results Keep head of bed above 30 Continue O2 therapy Incentive spirometry DuoNeb q.6 as needed for shortness of breaths Follow am labs REVIEW OF SYSTEMS: 12 point ROS reviewed with patient. Pertinent positives mentioned above. Otherwise negative. PHYSICAL EXAM: GENERAL: alert, weak, awake oriented x 3 HEENT: EOMI, Sclera non icteric, moist mucosa NECK: Supple, no JVD, trachea midline LUNGS: Diminished bilateral lower lobes HEART: Regular rate and rhythm. Normal S1 and S2, without murmurs ABD: Abdomen soft, nontender. Bowel sounds present EXT: No clubbing cyanosis or edema, left foot TMA NEURO: Alert and oriented to person, follows commands Vital Signs (last 8hr) Date Time Temp Pulse Resp B/P (MAP) Pulse Ox O2 Delivery O2 Flow Rate FiO2 10/24/25 11:48 98.4 107 18 117/83 99 Nasal Cannula 2.0 10/24/25 08:15 104 20 N/Cannula Low lpm 2.0 10/24/25 08:00 98.4 103 18 122/75 98 Nasal Cannula 2.0 10/24/25 07:35 101 18 LABS: Hematology Labs: Test 10/24/25 03:53 Range/Units White Blood Count 8.8 4.8-10.8 K/uL Red Blood Count 4.06 4.00-5.50 MIL/uL Hemoglobin 9.1 L 12.0-16.0 g/dL Hematocrit 31.3 L 36-48 % Mean Corpuscular Volume 77.1 L 79-99 fL Mean Corpuscular Hemoglobin 22.4 L 27.0-33.0 pg Mean Corpuscular Hemoglobin Concent 29.1 L 32.0-36.0 g/dL Red Cell Distribution Width 28.3 H 11.0-15.5 % Platelet Count 250 130-400 K/uL Mean Platelet Volume 7.5-10.5 fL Nucleated Red Blood Cells 0.0 0.0-0.19 % Chemistry Labs: Test 10/24/25 11:15 10/24/25 03:53 10/23/25 04:13 Range/Units Whole Blood Glucose 110 70-110 MG/DL Sodium Level 143 136-145 mmol/L Potassium Level 3.2 L 3.5-5.1 mmol/L Chloride Level 105 101-111 mmol/L Carbon Dioxide Level 28 21-32 mmol/L Blood Urea Nitrogen 20 H 7-18 mg/dL Creatinine 1.0 0.5-1.0 mg/dL Glomerular Filtration Rate Calc 67 >90 mL/min Random Glucose 115 H 70-105 mg/dL Total Calcium 8.3 L 8.5-10.1 mg/dL Magnesium Level 1.60 L 1.80-2.40 mg/dL Total Bilirubin 1.3 H 0.2-1.0 mg/dL Aspartate Amino Transf (AST/SGOT) 30 10-37 U/L Alanine Aminotransferase (ALT/SGPT) 34 12-78 U/L Alkaline Phosphatase 217 H 50-136 U/L Total Protein 6.4 6.0-8.3 g/dL Albumin 1.8 L 3.5-5.0 g/dL Lactate Dehydrogenase 510 H 81-234 U/L Coagulation Labs: Test 10/23/25 22:47 Range/Units Activated Partial Thromboplast Time 26.4 26.3-35.5 SEC PLAN NEURO: Minimize central acting medications as possible. Maintain fall precautions, adequate lighting during the day PULMONARY: Supplemental 02 as needed. Maintain aspiration precautions at all times CARDIOVASCULAR: Follow hemodynamics. Vital signs per facility protocol GI & NUTRITION: Continue with nutritional support. Continue stool softeners and laxatives as needed. KIDNEYS & ELECTROLYTES: Strict monitoring of intake, output and overall fluid balance. Avoid nephrotoxic medications to the extent possible. Medications to be dosed according to renal function. Monitor electrolytes and replace as needed ENDOCRINE: Maintain blood glucose between 100-180 at all times. Hypoglycemia protocol in place INFECTIOUS DISEASE: Trend temperature, WBC and procalcitonin level Follow cultures, deescalate antibiotics as soon as possible. Panculture if new onset fever ONCOLOGY/HEMATOLOGY/COAGULATION: Monitor for s/s of bleeding Monitor hemoglobin, coagulation studies as needed SKIN: Pressure ulcer prevention per facility protocol Specialty mattress Wound care to left TMA ORTHO/REHAB: Continue PT/OT Prophylaxis: Continue GI and DVT prophylaxis Pantoprazole and Heparin Code Status: Full Resuscitation Disposition: HANG PATEL Y JENNY Oct 24, 2025 13:58
--- NOTE | 2025-10-24 22:46 | PN ---
SUBJECTIVE: Ms. Divina Pinto is a 55-year-old diabetic female followed up for gangrene, dry and stable to the transmetatarsal amputation stump to the foot on the left. She is being followed by Cardiology for peripheral vascular disease. She has been followed for acute hypoxic respiratory failure, right-sided pleural effusion, status post thoracentesis with removal of 700 mL of fluid, acute diastolic congestive heart failure, sepsis, acute complicated cystitis, difficulty swallowing, hypertension, hyperlipidemia, type 2 diabetes, acute kidney injury, obesity, coronary artery disease status post 2-vessel CABG 08/2024. History of peripheral vascular disease being followed by Cardiology, Dr. Angel Malave. The patient is currently afebrile, 98.1, pulse 102, respirations 16, blood pressure 121/79. White count 8.8, H and H 9.1 and 31.3, platelets 250. BUN and creatinine level 20 and 1.0, albumin 1.8. The patient is currently receiving doxycycline and cefepime. REVIEW OF SYSTEMS: CONSTITUTIONAL: She feels weak and tired. PULMONARY: No shortness of breath. She has had a thoracentesis with 700 mL of fluid removed from the right side. GASTROINTESTINAL: She has difficulty swallowing secondary to a swollen uvula. GENITOURINARY: Being followed for acute complicated cystitis, receiving doxycycline and cefepime. ENDOCRINE: Diabetes. PSYCHIATRIC: Denied any depression. MUSCULOSKELETAL: Transmetatarsal amputation of the left. INTEGUMENTARY: Dry gangrene in an area 12 x 9 cm to the transmetatarsal amputation stump on the left. OBJECTIVE: Dry gangrene, distal transmetatarsal amputation stump left, 9 x 12 cm squared area. Left foot is warm. ASSESSMENT: Demarcating necrosis of the plantar flap and dorsal flap of the left transmetatarsal amputation. 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 The patient's blood flow to the left is via the femoral, popliteal, and posterior tibial artery on that left side. PLAN: Awaiting recommendations by the Cardiology service. Continue Betadine dressings, offloading measures, IV antibiotics, and follow the patient closely while in-house. TID: [id number] RECEIPT: [id number]
[2025-10-25] VITALS (16 sets, daily range): BP systolic 99–119; BP diastolic 59–78; PULSE 86–108; RESP 16–20; TEMP 98.1–98.9; O2SAT 97–99
--- NOTE | 2025-10-25 03:09 | PN ---
SUBJECTIVE: The patient is feeling fine. Denies any complaints of chest pain or shortness of breath. OBJECTIVE: Vital signs are stable. Her examination is unchanged. RECOMMENDATION: I have discussed with Dr. Cox, the wound in the left foot is not healing. I will schedule her for angiography of the left lower extremity. Procedure, benefits, risks have all been explained to her. She understands and wishes to proceed. TID: [id number] RECEIPT: [id number]
--- NOTE | 2025-10-25 03:10 | CONS ---
REASON FOR CONSULTATION: History of evaluated CHF and PAD. HISTORY OF PRESENT ILLNESS: The patient is a middle-aged female who is actually well known to me. She has a history of ischemic cardiomyopathy. We had done Impella guided balloon angioplasty of the RCA. She actually did well. Her ejection fraction has improved, but she came in with shortness of breath, edema in her feet and left foot wound. Arterial Doppler was done, which reveals left [id number] disease. The patient also has a history of left groin infection post-Impella, which has almost healed. REVIEW OF SYSTEMS: GENERAL: No history of weight loss or weight gain. LUNGS: History of shortness of breath. CARDIOVASCULAR: As above. HOME MEDICATIONS: As listed in the chart. ALLERGIES: No known drug allergies. SOCIAL HISTORY: Denies smoking or alcohol or drugs. PHYSICAL EXAMINATION: GENERAL: Middle-aged female. Alert and oriented x 3. No pallor, no cyanosis, no jaundice, no lymphadenopathy, no pitting edema VITAL SIGNS: Heart rate is 70, blood pressure is 130/70. HEENT: Normocephalic and atraumatic. Pupils are equal, reactive to light. NECK: Supple. No thyromegaly. No carotid bruits. No masses. LUNGS: Clear to auscultation and percussion. CARDIOVASCULAR: Peripheral pulses are diminished. No groin bruit. No abdominal bruit. No carotid bruit. No JVD. S1, S2 heard. No S3. No S4. No murmurs. No rubs. No adventitious sounds. ABDOMEN: Benign. CENTRAL NERVOUS SYSTEM: Nonfocal exam EXTREMITIES: Dressing is present on the left foot. FINAL IMPRESSION: * Peripheral vascular disease with wound that is not healing, left lower extremity. * Diastolic CHF. * History of ischemic cardiomyopathy that is stable. * Multiple noncardiac issues. RECOMMENDATION: At this time, I feel we will wait and see how the wound does. Based on the arterial Doppler, we should be able to manage her medically. We will keep her on IV Lasix. No indication for CAD workup. TID: [id number] RECEIPT: [id number]
[2025-10-25 04:46] LABS: NUCLEATED RED BLOOD CELLS 0.3 % (0.0-0.19); PLATELET COUNT (AUTO) 264.0 K/uL (130-400); RED BLOOD CELL COUNT(AUTO) 3.81 MIL/uL (4.00-5.50); RED CELL DISTRIBUTION WIDTH 28.8 % (11.0-15.5); WHITE BLOOD COUNT (AUTO) 7.3 K/uL (4.8-10.8)
[2025-10-25 05:05] LABS: ASPARTATE AMINOTRANSFERASE 27.0 U/L (10-37); CREATININE 0.9 mg/dL (0.5-1.0); GLOMERULAR FILTR. RATE CALC 76.0 mL/min (>90); GLUCOSE,RANDOM 99.0 mg/dL (70-105); SODIUM SERUM 143.0 mmol/L (136-145); TOTAL PROTEIN, SERUM 6.1 g/dL (6.0-8.3); UREA NITROGEN, BLOOD 21.0 mg/dL (7-18)
--- NOTE | 2025-10-25 10:58 | PN ---
[facility] PROGRESS NOTE Date Patient Seen: Oct 25, 2025 Time of Visit: 10:56 Supervising Physician: Dr Ramu Hoff Primary Care Physician: Ger Zhang Outpatient Specialists: [ ] Inpatient Consults: Dr. Cox, Dr. Angel Ingram PROBLEM LIST: Acute hypoxic respiratory failure, likely from right-sided pleural effusion, POA Right-sided pleural effusion, POA Acute diastolic CHF exacerbation,50-55%, stage III diastolic dysfunction Sepsis, multifactorial, likely from respiratory, genitourinary infection, initial lactic acid is normal, procal normal POA Acute complicated cystitis, POA Difficulty swallowing Left foot TMA wound care Hypertension, POA Hyperlipidemia, POA DM type II, with hyperglycemia, POA Acute kidney injury, POA Class two obesity, BMI of 35.5, POA History of CAD, status post two-vessel CABG, August 2024, POA History of peripheral vascular disease, status post left TMA with Dr. Cox, 09/2025 at [facility], [facility] INTERVAL HISTORY: Patient seen and examined, patient lying comfortably in bed, she is alert and oriented, reporting no pain or discomfort. She is a little upset that she is NPO for a angiogram later today of her left lower extremity Podiatry is following her wounds along with wound care No acute events overnight Afebrile Continues on antibiotics PLAN: Continue with IV Doxycycline and Cefepime CPT with nebulizer treatment Follow postprocedure Continue diuresis Holding antiplatelet therapy Incentive spirometry DuoNeb q.6 as needed for shortness of breaths Follow am labs REVIEW OF SYSTEMS: 12 point ROS reviewed with patient. Pertinent positives mentioned above. Otherwise negative. PHYSICAL EXAM: GENERAL: alert, weak, awake oriented x 3 HEENT: EOMI, Sclera non icteric, moist mucosa NECK: Supple, no JVD, trachea midline LUNGS: Diminished bilateral lower lobes HEART: Regular rate and rhythm. Normal S1 and S2, without murmurs ABD: Abdomen soft, nontender. Bowel sounds present EXT: No clubbing cyanosis or edema, left foot TMA NEURO: Alert and oriented to person, follows commands Vital Signs (last 8hr) Date Time Temp Pulse Resp B/P (MAP) Pulse Ox O2 Delivery O2 Flow Rate FiO2 10/25/25 08:04 98.6 98 16 101/63 99 Nasal Cannula 2.0 10/25/25 07:05 98 20 N/Cannula Low lpm 2.0 28 10/25/25 07:04 98 18 10/25/25 03:43 98.4 100 20 99/59 97 Nasal Cannula 2.0 LABS: Hematology Labs: Test 10/25/25 04:28 Range/Units White Blood Count 7.3 4.8-10.8 K/uL Red Blood Count 3.81 L 4.00-5.50 MIL/uL Hemoglobin 8.8 L 12.0-16.0 g/dL Hematocrit 29.4 L 36-48 % Mean Corpuscular Volume 77.2 L 79-99 fL Mean Corpuscular Hemoglobin 23.1 L 27.0-33.0 pg Mean Corpuscular Hemoglobin Concent 29.9 L 32.0-36.0 g/dL Red Cell Distribution Width 28.8 H 11.0-15.5 % Platelet Count 264 130-400 K/uL Mean Platelet Volume 10.4 7.5-10.5 fL Nucleated Red Blood Cells 0.3 H 0.0-0.19 % Chemistry Labs: Test 10/25/25 05:22 10/25/25 04:28 Range/Units Whole Blood Glucose 98 70-110 MG/DL Sodium Level 143 136-145 mmol/L Potassium Level 3.6 3.5-5.1 mmol/L Chloride Level 107 101-111 mmol/L Carbon Dioxide Level 28 21-32 mmol/L Blood Urea Nitrogen 21 H 7-18 mg/dL Creatinine 0.9 0.5-1.0 mg/dL Glomerular Filtration Rate Calc 76 >90 mL/min Random Glucose 99 70-105 mg/dL Total Calcium 8.4 L 8.5-10.1 mg/dL Magnesium Level 1.80 1.80-2.40 mg/dL Total Bilirubin 1.3 H 0.2-1.0 mg/dL Aspartate Amino Transf (AST/SGOT) 27 10-37 U/L Alanine Aminotransferase (ALT/SGPT) 30 12-78 U/L Alkaline Phosphatase 196 H 50-136 U/L Total Protein 6.1 6.0-8.3 g/dL Albumin 1.6 L 3.5-5.0 g/dL Coagulation Labs: Test 10/23/25 22:47 Range/Units Activated Partial Thromboplast Time 26.4 26.3-35.5 SEC DIAGNOSTICS / RADIOLOGY RESULTS: [ ] PLAN NEURO: Minimize central acting medications as possible. Maintain fall precautions, adequate lighting during the day PULMONARY: Supplemental 02 as needed. Maintain aspiration precautions at all times CARDIOVASCULAR: Follow hemodynamics. Vital signs per facility protocol GI & NUTRITION: Continue with nutritional support. Continue stool softeners and laxatives as needed. KIDNEYS & ELECTROLYTES: Strict monitoring of intake, output and overall fluid balance. Avoid nephrotoxic medications to the extent possible. Medications to be dosed according to renal function. Monitor electrolytes and replace as needed ENDOCRINE: Maintain blood glucose between 100-180 at all times. Hypoglycemia protocol in place INFECTIOUS DISEASE: Trend temperature, WBC and procalcitonin level Follow cultures, deescalate antibiotics as soon as possible. Panculture if new onset fever ONCOLOGY/HEMATOLOGY/COAGULATION: Monitor for s/s of bleeding Monitor hemoglobin, coagulation studies as needed SKIN: Pressure ulcer prevention per facility protocol Specialty mattress Wound care to left TMA ORTHO/REHAB: Continue PT/OT Prophylaxis: Continue GI and DVT prophylaxis Pantoprazole and Heparin Code Status: Full Resuscitation Disposition: JERSEY HUGGINS PAC Oct 25, 2025 10:58
--- NOTE | 2025-10-25 14:45 | NUR ---
dr. diane called to cancel the angiogram and to nofify [facility] that he would be doing the angiogram tomorrow at 1pm. notified luiza in [facility] about the cancellation and rescheduling, she verbalized understanding.
[2025-10-26] VITALS (19 sets, daily range): BP systolic 97–120; BP diastolic 58–81; PULSE 84–109; RESP 16–24; TEMP 97.3–99.1; O2SAT 100
--- NOTE | 2025-10-26 03:59 | PN ---
SUBJECTIVE: The patient is a very pleasant 55-year-old diabetic, Latin-Togolese female, followed up for acute hypoxic respiratory failure, right-sided pleural effusion status post right-sided thoracentesis with removal of 700 mL of fluid, acute diastolic congestive heart failure, stage 3 diastolic dysfunction, sepsis, multifactorial, acute complicated cystitis, difficulty swallowing, left foot transmetatarsal amputation with demarcating necrosis of the flap, hypertension, hyperlipidemia, type 2 diabetes with hyperglycemia, acute kidney injury, class 2 obesity, BMI 35.5, history of coronary artery disease status post 2-vessel CABG, history of peripheral vascular disease status post left transmetatarsal amputation on 10/04. The patient is currently receiving doxycycline and cefepime. The patient is being evaluated today by Dr. Gonzalez for evaluation of her circulation status in the Emergency Dispatcher to that left lower extremity. OBJECTIVE: T-max 98.4, pulse 98, respirations 16, blood pressure 119/67. White count 7.3, H and H 8.8 and 29.4, platelets 264, BUN and creatinine 21 and 0.9, glucose 95, albumin 1.6. The patient is currently receiving IV cefepime and IV doxycycline. The patient's examination today shows she has demarcated necrosis of the plantar flap in an area approximately 9 x 12 sq cm. Left foot is warm. ASSESSMENT: Demarcated necrosis of the plantar flap of the transmetatarsal amputation of the left. Arterial Doppler suggests anterior tibial artery and dorsalis pedis artery occlusion. The patient is being evaluated today in the Emergency Dispatcher by Dr. Gonzalez for her circulation status. PLAN: Awaiting evaluation of her circulation status today in the Emergency Dispatcher by Dr. Gonzalez. Continue with Betadine dressings, offloading measures, IV antibiotics. Follow the patient closely while in-house. TID: [id number] RECEIPT: [id number]
--- NOTE | 2025-10-26 12:32 | NUR ---
TAKEN TO [facility] VIA BED BY POWER FIERRO.
[2025-10-26] MEDS ORDERED: LIDOCAINE HCL 400MG/20ML VIAL ONE (12:37)
[2025-10-26] MEDS ORDERED: IODIXANOL 320 MG/ML 100 ML VIAL ONE (12:38)
[2025-10-26] MEDS ORDERED: NITROGLYCERIN 50MG VIAL ONE (12:38)
[2025-10-26] MEDS ORDERED: HEParin-NS 1,000 UNIT/500 ML 1,000 ML IV ONE (12:38)
[2025-10-26] MEDS ORDERED: MIDAZOLAM HCL 1 MG/ML 2ML VIAL ONE (12:55)
--- NOTE | 2025-10-26 14:15 | NUR ---
RETURNED FROM PHOTOGRAPHIC HAND DEVELOPER, APPEARS COMFORTABLE. RIGHT GROIN AREA WITH CLEAN AND DRY DRESSING. DENIES PAIN. BILATERAL PEDAL PULSES PER DOPPLER. BEDREST UNTIL 425PM. WILL CONTINUE WITH PLAN OF CARE.
--- NOTE | 2025-10-26 17:51 | PN ---
[facility] PROGRESS NOTE Date Patient Seen: Oct 26, 2025 Time of Visit: 17:46 Supervising Physician: JUANITO DIOP MD Primary Care Physician: Ger Zhang Outpatient Specialists: [ ] Inpatient Consults: Dr. Cox, Dr. Angel Ingram PROBLEM LIST: Acute hypoxic respiratory failure, likely from right-sided pleural effusion, POA Right-sided pleural effusion, POA Acute diastolic CHF exacerbation,50-55%, stage III diastolic dysfunction Sepsis, multifactorial, likely from respiratory, genitourinary infection, initial lactic acid is normal, procal normal POA Acute complicated cystitis, POA Difficulty swallowing Left foot TMA wound care Hypertension, POA Hyperlipidemia, POA DM type II, with hyperglycemia, POA Acute kidney injury, POA Class two obesity, BMI of 35.5, POA History of CAD, status post two-vessel CABG, August 2024, POA History of peripheral vascular disease, status post left TMA with Dr. Cox, 09/2025 at [facility], [facility] INTERVAL HISTORY: Patient had an angiogram done by due to signs of PVD to left lower extremity, no fever, chills, nausea or vomiting most recent chest x ray showed pleural effusion plan is to repeat chest x ray a nd labs in am . PLAN: Chest x ray in am CBC,CMP, Mg, Phos in am Continue with IV Doxycycline and Cefepime CPT with nebulizer treatment Follow postprocedure Continue diuresis Holding antiplatelet therapy Incentive spirometry DuoNeb q.6 as needed for shortness of breaths Follow am labs REVIEW OF SYSTEMS: 12 point ROS reviewed with patient. Pertinent positives mentioned above. Otherwise negative. PHYSICAL EXAM: GENERAL: alert, weak, awake oriented x 3 HEENT: EOMI, Sclera non icteric, moist mucosa NECK: Supple, no JVD, trachea midline LUNGS: Diminished bilateral lower lobes HEART: Regular rate and rhythm. Normal S1 and S2, without murmurs ABD: Abdomen soft, nontender. Bowel sounds present EXT: No clubbing cyanosis or edema, left foot TMA NEURO: Alert and oriented to person, follows commands Vital Signs (last 8hr) Date Time Temp Pulse Resp B/P (MAP) Pulse Ox O2 Delivery O2 Flow Rate FiO2 10/26/25 16:15 103 117/76 97 Nasal Cannula 1.0 10/26/25 15:45 100 114/80 97 Nasal Cannula 1.0 10/26/25 15:15 96 98/68 97 Nasal Cannula 1.0 10/26/25 15:00 98 100/69 97 Nasal Cannula 1.0 10/26/25 14:45 98 106/66 97 Nasal Cannula 1.0 10/26/25 14:30 99 106/68 98 Nasal Cannula 1.0 10/26/25 14:15 97.3 84 16 106/58 100 Nasal Cannula 1.0 10/26/25 12:14 98.2 94 16 112/73 100 Nasal Cannula 2.0 10/26/25 11:26 95 18 10/26/25 11:26 94 20 N/Cannula Low lpm 2.0 28 LABS: Hematology Labs: Test 10/25/25 04:28 Range/Units White Blood Count 7.3 4.8-10.8 K/uL Red Blood Count 3.81 L 4.00-5.50 MIL/uL Hemoglobin 8.8 L 12.0-16.0 g/dL Hematocrit 29.4 L 36-48 % Mean Corpuscular Volume 77.2 L 79-99 fL Mean Corpuscular Hemoglobin 23.1 L 27.0-33.0 pg Mean Corpuscular Hemoglobin Concent 29.9 L 32.0-36.0 g/dL Red Cell Distribution Width 28.8 H 11.0-15.5 % Platelet Count 264 130-400 K/uL Mean Platelet Volume 10.4 7.5-10.5 fL Nucleated Red Blood Cells 0.3 H 0.0-0.19 % Chemistry Labs: Test 10/26/25 16:06 10/25/25 04:28 Range/Units Whole Blood Glucose 100 70-110 MG/DL Sodium Level 143 136-145 mmol/L Potassium Level 3.6 3.5-5.1 mmol/L Chloride Level 107 101-111 mmol/L Carbon Dioxide Level 28 21-32 mmol/L Blood Urea Nitrogen 21 H 7-18 mg/dL Creatinine 0.9 0.5-1.0 mg/dL Glomerular Filtration Rate Calc 76 >90 mL/min Random Glucose 99 70-105 mg/dL Total Calcium 8.4 L 8.5-10.1 mg/dL Magnesium Level 1.80 1.80-2.40 mg/dL Total Bilirubin 1.3 H 0.2-1.0 mg/dL Aspartate Amino Transf (AST/SGOT) 27 10-37 U/L Alanine Aminotransferase (ALT/SGPT) 30 12-78 U/L Alkaline Phosphatase 196 H 50-136 U/L Total Protein 6.1 6.0-8.3 g/dL Albumin 1.6 L 3.5-5.0 g/dL DIAGNOSTICS / RADIOLOGY RESULTS: [ ] PLAN NEURO: Minimize central acting medications as possible. Maintain fall precautions, adequate lighting during the day PULMONARY: Supplemental 02 as needed. Maintain aspiration precautions at all times CARDIOVASCULAR: Follow hemodynamics. Vital signs per facility protocol GI & NUTRITION: Continue with nutritional support. Continue stool softeners and laxatives as needed. KIDNEYS & ELECTROLYTES: Strict monitoring of intake, output and overall fluid balance. Avoid nephrotoxic medications to the extent possible. Medications to be dosed according to renal function. Monitor electrolytes and replace as needed ENDOCRINE: Maintain blood glucose between 100-180 at all times. Hypoglycemia protocol in place INFECTIOUS DISEASE: Trend temperature, WBC and procalcitonin level Follow cultures, deescalate antibiotics as soon as possible. Panculture if new onset fever ONCOLOGY/HEMATOLOGY/COAGULATION: Monitor for s/s of bleeding Monitor hemoglobin, coagulation studies as needed SKIN: Pressure ulcer prevention per facility protocol Specialty mattress Wound care to left TMA ORTHO/REHAB: Continue PT/OT Prophylaxis: Continue GI and DVT prophylaxis Pantoprazole and Heparin Code Status: Full Resuscitation Disposition: TBD ATTESTATION BY PHYSICIAN Documentation assistance provided by a scribe, information recorded by the scribe was done at my direction and has been reviewed and validated by me." JUANITO DIOP MD I personally scribed for JUANITO DIOP MD ([email or web address]) on 10/26/25 at 17:50. Electronically submitted by Essie Gallo ([id number]). JUANITO DIOP MD Oct 26, 2025 17:50
[2025-10-26] MEDS: LACTULOSE 20 GM/30 ML UDCUP PO SCH (20:43)
[2025-10-27] VITALS (15 sets, daily range): BP systolic 93–117; BP diastolic 62–84; PULSE 82–94; RESP 15–24; TEMP 97.7–98.7; O2SAT 95–99
--- NOTE | 2025-10-27 00:34 | CCATH ---
DATE OF SERVICE: 10/26/2025 PREOPERATIVE DIAGNOSIS: Atherosclerosis, left lower extremity with nonhealing wound and pain. PROCEDURES PERFORMED: 1. Catheter placement in the left popliteal artery. 2. DSA angiography of the left [id number]. 3. Catheter placement in the left common iliac artery. 4. Left lower extremity angiography with runoff. 5. Right lower extremity angiography. 6. Sedation. WOOD SHOP TEACHER: Angel Gonzalez MD DETAILS OF PROCEDURE: After informed consent was obtained, the patient was brought to the Cardiac Account Leader. The right groin was prepped and draped in sterile fashion. After obtaining adequate local anesthesia in the right groin, a 5-Nepalese sheath was introduced in the right common femoral artery via modified Seldinger technique without any problems. Following this, a JACKMAN catheter was used and using a glidewire glide catheter, the left popliteal artery was cannulated and left [id number] DSA angiography was done in detail. In the end, right lower extremity angiography was done. FINDINGS: 1. Left common iliac, left external iliac, left common femoral artery is patent. Left SFA is patent. Left popliteal artery is patent. Left below the knee has 2-vessel runoff. Anterior tibial artery is patent, but near the ankle, the dorsalis pedis artery is occluded and does recanalize. Most of the blood flow to the foot is coming from the posterior tibial artery. 2. Right common iliac artery, right external iliac artery, right common femoral artery is patent. Right SFA is patent. Right popliteal artery is patent. Right below the knee has 3-vessel runoff. FINAL IMPRESSION: Adequate blood circulation to both of her feet. RECOMMENDATION: Medical management. In the end, Angioseal closure device was done without any problems. TID: [id number] RECEIPT: [id number]
[2025-10-27 04:03] LABS: IMMATURE GRANULOCYTE ABSOLUTE 0.03 K/uL (0-1); NUCLEATED RED BLOOD CELLS 0.3 % (0.0-0.19); PLATELET COUNT (AUTO) 268 K/uL (130-400); RED BLOOD CELL COUNT(AUTO) 4.00 MIL/uL (4.00-5.50); RED CELL DISTRIBUTION WIDTH 29.2 % (11.0-15.5); WHITE BLOOD COUNT (AUTO) 6.9 K/uL (4.8-10.8)
[2025-10-27 04:31] LABS: ASPARTATE AMINOTRANSFERASE 28.0 U/L (10-37); CREATININE 0.9 mg/dL (0.5-1.0); GLOMERULAR FILTR. RATE CALC 76.0 mL/min (>90); GLUCOSE,RANDOM 104.0 mg/dL (70-105); SODIUM SERUM 143.0 mmol/L (136-145); TOTAL PROTEIN, SERUM 6.5 g/dL (6.0-8.3); UREA NITROGEN, BLOOD 21.0 mg/dL (7-18)
--- NOTE | 2025-10-27 06:57 | NUR ---
DR. MONTOYA AT BEDSIDE DOING WOUND CARE CHANGE
--- NOTE | 2025-10-27 07:40 | PN ---
SUBJECTIVE: The patient is a very pleasant 55-year-old diabetic female, who is followed up for a demarcating necrosis of the flap of her transmetatarsal amputation foot on the left. She has been evaluated by the Cardiology Service. There is a plan for evaluation of her circulation status on that left side. The patient has been afebrile. T-max is 99.1, pulse 104, respirations 24, blood pressure 113/75. The patient is followed for the problems list that includes acute hypoxic respiratory failure, right-sided pleural effusion, acute diastolic congestive heart failure exacerbation, sepsis multifactorial, acute complicated cystitis, difficulty swallowing, left transmetatarsal amputation with demarcating necrosis of the flap, hypertension, hyperlipidemia, type 2 diabetes, acute kidney injury, BMI 35.5, history of coronary artery disease status post two-vessel CABG in 08/2024, history of peripheral vascular disease, status post transmetatarsal amputation. The patient is being followed for circulation status by the Cardiology Service. White count 7.3, H and H 8.8 and 29.4. The patient is currently receiving IV cefepime and doxycycline. OBJECTIVE: Her examination today shows demarcating necrosis of the plantar flap of the transmetatarsal amputation on the left, 9 x 12 cm. ASSESSMENT: Demarcating necrosis of the plantar flap of the transmetatarsal amputation on the left. Arterial Doppler study suggests anterior tibial and dorsalis pedis artery occlusion. The patient is being evaluated by the Cardiology Service. PLAN: Await an evaluation of the circulation status by the Cardiology Service. Continue with antibiotics, offloading measures and local wound care with Betadine dressings. The patient has a guarded prognosis for healing given the severity of the demarcated necrosis of the plantar flap of the left transmetatarsal amputation site. TID: [id number] RECEIPT: [id number]
--- NOTE | 2025-10-27 10:56 | HMCIMG ---
EXAM: CR Chest, 1 View. CLINICAL HISTORY: chf COMPARISON: 10/23/2025 FINDINGS: LUNGS: Interval worsening of right pleural effusion with adjacent atelectasis. PLEURAL SPACES: No pneumothorax. MEDIASTINUM: Stable mild cardiomegaly with pulmonary vascular congestion. Median sternotomy status. BONES: No aggressive appearing osseous lesion seen. IMPRESSION: 1. Worsening right pleural effusion with adjacent atelectasis. 2. Stable mild cardiomegaly with pulmonary vascular congestion. /[place]
--- NOTE | 2025-10-27 12:59 | PN ---
[facility] PROGRESS NOTE Date Patient Seen: Oct 27, 2025 Time of Visit: 12:42 Supervising Physician: [Dr. Robertson ] Primary Care Physician: Ger Zhang Outpatient Specialists: [ ] Inpatient Consults: Dr. Cox, Dr. Angel Ingram PROBLEM LIST: Acute hypoxic respiratory failure, likely from right-sided pleural effusion Acute diastolic CHF exacerbation,50-55%, stage III diastolic dysfunction Sepsis, multifactorial, likely from respiratory, genitourinary infection, initial lactic acid is normal, procal normal POA Acute complicated cystitis Left foot TMA wound care Hypertension Hyperlipidemia DM type II, with hyperglycemia BEN, POA Obesity, BMI of 35.5, History of CAD,CABG, 2023 History of PVD, left TMA 09/2025 INTERVAL HISTORY: Patient seen an examined all labs reviewed. Patient sitting up in bed comfortably. Patient had angio for which patient will be medically treated. Xray this am with noted effusion we will increase Lasix. Diagnostic thora revealed transudative plural effusion. PLAN: Chest x ray in am Continue with IV Doxycycline and Cefepime Continue to Diurese Lasix 40 Q 8 CPT with nebulizer treatment Incentive spirometry DuoNeb q.6 as needed for shortness of breaths Follow am labs REVIEW OF SYSTEMS: 12 point ROS reviewed with patient. Pertinent positives mentioned above. Otherwise negative. PHYSICAL EXAM: GENERAL: alert, weak, awake oriented x 3 HEENT: EOMI, Sclera non icteric, moist mucosa NECK: Supple, no JVD, trachea midline LUNGS: Diminished bilateral lower lobes HEART: Regular rate and rhythm. Normal S1 and S2, without murmurs ABD: Abdomen soft, nontender. Bowel sounds present EXT: No clubbing cyanosis or edema, left foot TMA NEURO: Alert and oriented to person, follows commands Vital Signs (last 8hr) Date Time Temp Pulse Resp B/P (MAP) Pulse Ox O2 Delivery O2 Flow Rate FiO2 10/27/25 11:19 83 20 10/27/25 11:18 83 20 N/Cannula Low lpm 1.0 24 10/27/25 08:50 95 Room Air* 0 21 10/27/25 07:00 97.7 91 20 102/69 99 Nasal Cannula 1.0 10/27/25 06:22 88 20 10/27/25 06:22 88 20 N/Cannula Low lpm 2.0 28 LABS: Hematology Labs: Test 10/27/25 03:51 Range/Units White Blood Count 6.9 4.8-10.8 K/uL Red Blood Count 4.00 4.00-5.50 MIL/uL Hemoglobin 9.2 L 12.0-16.0 g/dL Hematocrit 31.5 L 36-48 % Mean Corpuscular Volume 78.8 L 79-99 fL Mean Corpuscular Hemoglobin 23.0 L 27.0-33.0 pg Mean Corpuscular Hemoglobin Concent 29.2 L 32.0-36.0 g/dL Red Cell Distribution Width 29.2 H 11.0-15.5 % Platelet Count 268 130-400 K/uL Mean Platelet Volume 7.5-10.5 fL Immature Granulocyte % (Auto) 0.4 0-1 % Neutrophils (%) (Auto) 67.1 40.0-77.0 % Lymphocytes (%) (Auto) 17.9 L 21.0-51.0 % Monocytes (%) (Auto) 11.1 3.0-13.0 % Eosinophils (%) (Auto) 2.3 0.0-8.0 % Basophils (%) (Auto) 1.2 0.0-5.0 % Neutrophils # (Auto) 4.6 1.8-7.7 K/uL Lymphocytes # (Auto) 1.2 1.0-4.8 K/uL Monocytes # (Auto) 0.8 0.1-1.0 K/uL Eosinophils # (Auto) 0.16 0.00-0.70 K/uL Basophils # (Auto) 0.08 0.00-0.20 K/uL Absolute Immature Granulocyte (auto 0.03 0-1 K/uL Nucleated Red Blood Cells 0.3 H 0.0-0.19 % Red Blood Cell Morphology See comments Chemistry Labs: Test 10/27/25 11:23 10/27/25 03:51 Range/Units Whole Blood Glucose 120 H 70-110 MG/DL Bedside Glucose Comment Notified Nurse Sodium Level 143 136-145 mmol/L Potassium Level 3.6 3.5-5.1 mmol/L Chloride Level 106 101-111 mmol/L Carbon Dioxide Level 29 21-32 mmol/L Blood Urea Nitrogen 21 H 7-18 mg/dL Creatinine 0.9 0.5-1.0 mg/dL Glomerular Filtration Rate Calc 76 >90 mL/min Random Glucose 104 70-105 mg/dL Total Calcium 8.5 8.5-10.1 mg/dL Magnesium Level 1.60 L 1.80-2.40 mg/dL Total Bilirubin 1.4 H 0.2-1.0 mg/dL Aspartate Amino Transf (AST/SGOT) 28 10-37 U/L Alanine Aminotransferase (ALT/SGPT) 29 12-78 U/L Alkaline Phosphatase 226 H 50-136 U/L Total Protein 6.5 6.0-8.3 g/dL Albumin 1.8 L 3.5-5.0 g/dL DIAGNOSTICS / RADIOLOGY RESULTS: [ ] PLAN NEURO: Minimize central acting medications as possible. Maintain fall precautions, adequate lighting during the day PULMONARY: Supplemental 02 as needed. Maintain aspiration precautions at all times CARDIOVASCULAR: Follow hemodynamics. Vital signs per facility protocol GI & NUTRITION: Continue with nutritional support. Continue stool softeners and laxatives as needed. KIDNEYS & ELECTROLYTES: Strict monitoring of intake, output and overall fluid balance. Avoid nephrotoxic medications to the extent possible. Medications to be dosed according to renal function. Monitor electrolytes and replace as needed ENDOCRINE: Maintain blood glucose between 100-180 at all times. Hypoglycemia protocol in place INFECTIOUS DISEASE: Trend temperature, WBC and procalcitonin level Follow cultures, deescalate antibiotics as soon as possible. Panculture if new onset fever ONCOLOGY/HEMATOLOGY/COAGULATION: Monitor for s/s of bleeding Monitor hemoglobin, coagulation studies as needed SKIN: Pressure ulcer prevention per facility protocol Specialty mattress Wound care to left TMA ORTHO/REHAB: Continue PT/OT Prophylaxis: Continue GI and DVT prophylaxis Pantoprazole and Heparin Code Status: Full Resuscitation Disposition: LUPIS VIDALES AGACNP Oct 27, 2025 12:59
[2025-10-27] MEDS ORDERED: LACTULOSE 20 GM/30 ML UDCUP PO PRN (16:30)
[2025-10-28] VITALS (14 sets, daily range): BP systolic 91–116; BP diastolic 61–71; PULSE 84–95; RESP 14–20; TEMP 97.4–98.3; O2SAT 93–100
--- NOTE | 2025-10-28 06:01 | PN ---
SUBJECTIVE: The patient is a very pleasant 55-year-old diabetic female, followed up for demarcated necrosis of the plantar flap of her transmetatarsal amputation on the left. T-max 98.1, blood pressure 109/70, pulse 91, respirations 20. She has a white count of 6.9, H and H 9.2 and 31.5, platelets 268, BUN 21, creatinine 0.9, and blood sugar 120. The patient has been evaluated by the Cardiology service, being followed for ischemic cardiomyopathy, peripheral vascular disease, left lower extremity diastolic congestive heart failure, and history of ischemic cardiomyopathy that is stable. The patient had arterial Doppler studies on the left with normal triphasic waveforms, common femoral, superficial femoral, popliteal, and posterior tibial arteries. Monophasic anterior tibial. The patient has an MRI that has been ordered for the left foot. The patient has had repeat arterial Doppler that showed normal blood flow, superficial femoral, popliteal and posterior tibial arteries, and monophasic waveforms to the anterior tibial. The patient has no complaints of pain on the left. She has a past medical history that includes hypoxic respiratory failure, right-sided pleural effusion, acute diastolic congestive heart failure exacerbation, sepsis, multifactorial, acute complicated cystitis, difficulty swallowing, left transmetatarsal amputation with demarcating necrosis of the flap, hypertension, hyperlipidemia, type 2 diabetes, acute kidney injury, history of coronary artery disease status post two-vessel CABG, history of peripheral vascular disease status post transmetatarsal amputation. Examination today shows she has demarcated necrosis of the plantar flap 9 x 12 cm area to the distal aspect of the transverse metatarsal amputation on the left. It is dry. It is stable. ASSESSMENT: Demarcating necrosis of the plantar flap of the transmetatarsal amputation on the left. Arterial Doppler studies suggest anterior tibial and dorsalis pedis artery occlusion. The patient is being evaluated by the Cardiology service. No intervention is planned. PLAN: Awaiting the results of the MRI to evaluate the possibility of osteomyelitis. I feel the patient may benefit from revision of a transmetatarsal amputation to a higher level of amputation on the left due to the demarcated necrosis of the flaps. We will continue to follow the patient closely while inhouse. TID: [id number] RECEIPT: [id number] [facility]
[2025-10-28 06:06] LABS: IMMATURE GRANULOCYTE ABSOLUTE 0.03 K/uL (0-1); NUCLEATED RED BLOOD CELLS 0.2 % (0.0-0.19); PLATELET COUNT (AUTO) 261 K/uL (130-400); RED BLOOD CELL COUNT(AUTO) 4.13 MIL/uL (4.00-5.50); RED CELL DISTRIBUTION WIDTH 29.6 % (11.0-15.5); WHITE BLOOD COUNT (AUTO) 8.0 K/uL (4.8-10.8)
[2025-10-28 06:27] LABS: ASPARTATE AMINOTRANSFERASE 26.0 U/L (10-37); CREATININE 1.0 mg/dL (0.5-1.0); GLOMERULAR FILTR. RATE CALC 67.0 mL/min (>90); GLUCOSE,RANDOM 121.0 mg/dL (70-105); SODIUM SERUM 143.0 mmol/L (136-145); TOTAL PROTEIN, SERUM 6.3 g/dL (6.0-8.3); UREA NITROGEN, BLOOD 21.0 mg/dL (7-18)
--- NOTE | 2025-10-28 10:34 | PN ---
[facility] PROGRESS NOTE Date Patient Seen: Oct 28, 2025 Time of Visit: 10:28 Supervising Physician: [Dr. Robertson ] Primary Care Physician: Ger Zhang Outpatient Specialists: [ ] Inpatient Consults: Dr. Cox, Dr. Angel Ingram PROBLEM LIST: Acute hypoxic respiratory failure, likely from right-sided pleural effusion Acute diastolic CHF exacerbation,50-55%, stage III diastolic dysfunction Sepsis, multifactorial, likely from respiratory, genitourinary infection Acute complicated cystitis Left foot TMA 09/11 Hypertension Hyperlipidemia DM type II, with hyperglycemia BEN, POA Obesity, BMI of 35.5, History of CAD,CABG, 2023 History of PVD, left TMA 09/2025 INTERVAL HISTORY: Patient seen an examined all labs reviewed. Patient resting in bed comfortably. X-ray this a.m. demonstrating improved effusion. Patient underwent lower extremity angio for evaluation of nonhealing left TMA. Plan to medically treat. Patient is scheduled for MRI today of left lower extremity, per Wound Care. PLAN: MRI of the same Follow wound care recommendations Chest x ray in am Continue with IV ABX Continue to Diurese Incentive spirometry DuoNeb q.6 as needed for shortness of breaths Follow am labs REVIEW OF SYSTEMS: 12 point ROS reviewed with patient. Pertinent positives mentioned above. Otherwise negative. PHYSICAL EXAM: GENERAL: alert, weak, awake oriented x 3 HEENT: EOMI, Sclera non icteric, moist mucosa NECK: Supple, no JVD, trachea midline LUNGS: Diminished bilateral lower lobes HEART: Regular rate and rhythm. Normal S1 and S2, without murmurs ABD: Abdomen soft, nontender. Bowel sounds present EXT: No clubbing cyanosis or edema, left foot TMA NEURO: Alert and oriented to person, follows commands Vital Signs (last 8hr) Date Time Temp Pulse Resp B/P (MAP) Pulse Ox O2 Delivery O2 Flow Rate FiO2 10/28/25 07:16 88 18 N/A Room Air 21 10/28/25 07:02 94 20 10/28/25 07:01 94 20 N/Cannula Low lpm 1.0 24 10/28/25 07:00 97.5 89 20 101/66 93 Room Air 10/28/25 05:57 86 16 107/67 98 Nasal Cannula 1.0 10/28/25 03:41 97.7 84 14 91/61 97 Nasal Cannula 1.0 LABS: Hematology Labs: Test 10/28/25 05:50 10/27/25 03:51 Range/Units White Blood Count 8.0 4.8-10.8 K/uL Red Blood Count 4.13 4.00-5.50 MIL/uL Hemoglobin 9.5 L 12.0-16.0 g/dL Hematocrit 32.7 L 36-48 % Mean Corpuscular Volume 79.2 79-99 fL Mean Corpuscular Hemoglobin 23.0 L 27.0-33.0 pg Mean Corpuscular Hemoglobin Concent 29.1 L 32.0-36.0 g/dL Red Cell Distribution Width 29.6 H 11.0-15.5 % Platelet Count 261 130-400 K/uL Mean Platelet Volume 7.5-10.5 fL Immature Granulocyte % (Auto) 0.4 0-1 % Neutrophils (%) (Auto) 74.0 40.0-77.0 % Lymphocytes (%) (Auto) 13.2 L 21.0-51.0 % Monocytes (%) (Auto) 9.0 3.0-13.0 % Eosinophils (%) (Auto) 2.5 0.0-8.0 % Basophils (%) (Auto) 0.9 0.0-5.0 % Neutrophils # (Auto) 6.0 1.8-7.7 K/uL Lymphocytes # (Auto) 1.1 1.0-4.8 K/uL Monocytes # (Auto) 0.7 0.1-1.0 K/uL Eosinophils # (Auto) 0.20 0.00-0.70 K/uL Basophils # (Auto) 0.07 0.00-0.20 K/uL Absolute Immature Granulocyte (auto 0.03 0-1 K/uL Nucleated Red Blood Cells 0.2 H 0.0-0.19 % Red Blood Cell Morphology See comments Chemistry Labs: Test 10/28/25 05:50 10/28/25 05:04 10/27/25 16:03 10/27/25 03:51 Range/Units Sodium Level 143 136-145 mmol/L Potassium Level 3.8 3.5-5.1 mmol/L Chloride Level 105 101-111 mmol/L Carbon Dioxide Level 31 21-32 mmol/L Blood Urea Nitrogen 21 H 7-18 mg/dL Creatinine 1.0 0.5-1.0 mg/dL Glomerular Filtration Rate Calc 67 >90 mL/min Random Glucose 121 H 70-105 mg/dL Total Calcium 7.9 L 8.5-10.1 mg/dL Total Bilirubin 1.3 H 0.2-1.0 mg/dL Aspartate Amino Transf (AST/SGOT) 26 10-37 U/L Alanine Aminotransferase (ALT/SGPT) 27 12-78 U/L Alkaline Phosphatase 232 H 50-136 U/L Total Protein 6.3 6.0-8.3 g/dL Albumin 1.7 L 3.5-5.0 g/dL Whole Blood Glucose 117 H 70-110 MG/DL Bedside Glucose Comment Notified Nurse Magnesium Level 1.60 L 1.80-2.40 mg/dL DIAGNOSTICS / RADIOLOGY RESULTS: [ ] PLAN NEURO: Minimize central acting medications as possible. Maintain fall precautions, adequate lighting during the day PULMONARY: Supplemental 02 as needed. Maintain aspiration precautions at all times CARDIOVASCULAR: Follow hemodynamics. Vital signs per facility protocol GI & NUTRITION: Continue with nutritional support. Continue stool softeners and laxatives as needed. KIDNEYS & ELECTROLYTES: Strict monitoring of intake, output and overall fluid balance. Avoid nephrotoxic medications to the extent possible. Medications to be dosed according to renal function. Monitor electrolytes and replace as needed ENDOCRINE: Maintain blood glucose between 100-180 at all times. Hypoglycemia protocol in place INFECTIOUS DISEASE: Trend temperature, WBC and procalcitonin level Follow cultures, deescalate antibiotics as soon as possible. Panculture if new onset fever ONCOLOGY/HEMATOLOGY/COAGULATION: Monitor for s/s of bleeding Monitor hemoglobin, coagulation studies as needed SKIN: Pressure ulcer prevention per facility protocol Specialty mattress Wound care to left TMA ORTHO/REHAB: Continue PT/OT Prophylaxis: Continue GI and DVT prophylaxis Pantoprazole and Heparin Code Status: Full Resuscitation Disposition: LUPIS VIDALES AGACNP Oct 28, 2025 10:34
--- NOTE | 2025-10-28 16:41 | NUR ---
CM NOTE CM received call from [employer] with [facility]. States patient has ins. auth. CM explained that patient is pending MRI of foot and possible TMA revision. States she will need to resubmit for auth once [place] to [place]. CM to f/u.
--- NOTE | 2025-10-28 21:44 | PN ---
SUBJECTIVE: A very pleasant 55-year-old diabetic Latin-Samoan female, followup for demarcated necrosis, the flap of her transmetatarsal amputation, surgical site on the left. She has had arterial Doppler studies which show triphasic waveforms to the posterior tibial artery, monophasic waveforms to the anterior tibial artery and the dorsalis pedis artery. Cardiology has evaluated. The patient is planning to manage her medically. I have ordered an MRI of the left foot to assess the patient for osteomyelitis. I am not sure if the patient is able to lay flat for the MRI due to her respiratory issues. Her x-rays are showing worsening right-sided pleural effusion. The patient remains afebrile and her white count is within normal limits. MEDICATIONS: The patient continues to be receiving 40 mg of Lasix IV every 8 hours, spironolactone, metoprolol, aspirin, hydrocodone, doxycycline, and cefepime. PHYSICAL EXAMINATION: T-max today 97.7, pulse 84, respirations 14, blood pressure 91/61. Stable demarcated necrosis of the plantar flap in an area 12 x 9 cm. This has a demarcated necrosis of the plantar flap, transmetatarsal amputation on the left. LABORATORY DATA: White count 8.0, H and H of 9.5 and 32.7, platelets 261. Albumin 1.7, potassium 3.8, BUN and creatinine 21 and 1.0. The patient's chest x-ray has shown worsening right pleural effusion with adjacent atelectasis. ASSESSMENT: The patient is being followed for the right-sided pleural effusion, acute hypoxic respiratory failure, acute diastolic congestive heart failure, exacerbation, sepsis, acute complicated cystitis, difficulty swallowing, demarcating necrosis to the transmetatarsal amputation stump on the left, BMI 35.5, history of coronary artery bypass grafting. Arterial Doppler studies suggest anterior tibial and dorsalis pedis artery occlusion. The patient is being evaluated by the Cardiology service. No further intervention is planned. The plan is to get an MRI of the left foot to evaluate the patient for osteomyelitis. The patient has a guarded prognosis for healing given the severity of the demarcated necrosis of the plantar flap of the area being 9 x 12 cm. There is a possibility for revision of her transmetatarsal amputation to a Chopart's level of amputation. I would wait on the results of the MRI to evaluate the patient for osteomyelitis to that left foot. We will continue to follow the patient closely while in-house. TID: [id number] RECEIPT: [id number]
[2025-10-29] VITALS (12 sets, daily range): BP systolic 98–111; BP diastolic 58–71; PULSE 81–100; RESP 15–18; TEMP 98–98.6; O2SAT 93–94
[2025-10-29 04:46] LABS: ASPARTATE AMINOTRANSFERASE 27.0 U/L (10-37); CREATININE 1.1 mg/dL (0.5-1.0); GLOMERULAR FILTR. RATE CALC 59.0 mL/min (>90); GLUCOSE,RANDOM 135.0 mg/dL (70-105); SODIUM SERUM 141.0 mmol/L (136-145); TOTAL PROTEIN, SERUM 6.0 g/dL (6.0-8.3); UREA NITROGEN, BLOOD 22.0 mg/dL (7-18)
--- NOTE | 2025-10-29 07:55 | HMCIMG ---
EXAM: CR Chest, 1 View. CLINICAL HISTORY: CONGESTION COMPARISON: 10/27/2025 FINDINGS: LUNGS: Persistent moderate right pleural effusion with adjacent atelectasis. PLEURAL SPACES: No pneumothorax. MEDIASTINUM: Stable cardiomegaly with slightly improved pulmonary vascular congestion. Median sternotomy status BONES: No aggressive appearing osseous lesion seen. IMPRESSION: 1. Persistent moderate right pleural effusion with adjacent atelectasis. 2. Stable cardiomegaly with slightly improved pulmonary vascular congestion. /[place]
--- NOTE | 2025-10-29 07:57 | HMCIMG ---
EXAMINATION: NONCONTRAST MRI OF THE LEFT FOOT. CLINICAL HISTORY: Suspected osteomyelitis. Status post midfoot amputation. COMPARISON: None. TECHNIQUE: Multiplanar, multisequence MR images of the left foot were obtained. FINDINGS: Status post midfoot amputation with residual metatarsal bases. Patchy marrow edema involves the 3rd to 5th residual metatarsal shafts and bases. Plantar musculature demonstrates moderate edema. Soft tissues demonstrate moderate diffuse subcutaneous edema extending into the moderate distal leg subcutaneous edema. A 1.2 x 4.2 x 2.7 cm (AP by transverse by craniocaudal) ill-defined fluid collection is seen at the level of amputation. Joint spaces are otherwise preserved. Visualized extensor and flexor tendons are normal in course and morphology without evidence of tenosynovitis to the visualized extent. IMPRESSION:Status post midfoot amputation with residual metatarsal bases. Patchy marrow edema in 3rd to 5th residual metatarsal shafts and bases, with moderate plantar muscle edema and diffuse subcutaneous edema extending to distal leg. 1.2 x 4.2 x 2.7 cm ill-defined fluid collection at the level of amputation. Together imaging features are concerning for cellulitis with possible osteomyelitis. Correlation with infective markers is requested. /[place]
[2025-10-29] MEDS: HYDROcodone/APAP 5/325 1 TAB TABLET PO PRN (08:48)
--- NOTE | 2025-10-29 09:50 | PN ---
[facility] PROGRESS NOTE Date Patient Seen: Oct 29, 2025 Time of Visit: 09:47 Supervising Physician: Dr. Robertson ] Primary Care Physician: Ger Zhang Outpatient Specialists: [ ] Inpatient Consults: Dr. Cox, Dr. Angel Ingram PROBLEM LIST: Acute hypoxic respiratory failure, likely from right-sided pleural effusion Acute diastolic CHF exacerbation,50-55%, stage III diastolic dysfunction Sepsis, multifactorial, likely from respiratory, genitourinary infection Acute complicated cystitis Left foot TMA 09/11 Hypertension Hyperlipidemia DM type II, with hyperglycemia BEN, POA Obesity, BMI of 35.5, History of CAD,CABG, 2023 History of PVD, left TMA 09/2025 INTERVAL HISTORY: Patient seen an examined all labs reviewed. Patient resting in bed comfortably. Dressing to left lower extremity dry and intact. Patient remains on room air with good saturations. Xray demonstrating increased effusion. Pending MRI results for evaluation of Left TMA PLAN: Supplemental 02 to keep o2 sats >92 Continue to diurese patient We will add metolazone Strict I&Os Chest x-ray Follow wound care recommendations for left TMA Obtain MRI results, we will then review need for continued IV ABX. Follow am labs REVIEW OF SYSTEMS: 12 point ROS reviewed with patient. Pertinent positives mentioned above. Otherwise negative. PHYSICAL EXAM: GENERAL: alert, weak, awake oriented x 3 HEENT: EOMI, Sclera non icteric, moist mucosa NECK: Supple, no JVD, trachea midline LUNGS: Diminished bilateral lower lobes HEART: Regular rate and rhythm. Normal S1 and S2, without murmurs ABD: Abdomen soft, nontender. Bowel sounds present EXT: No clubbing cyanosis or edema, left foot TMA NEURO: Alert and oriented to person, follows commands Vital Signs (last 8hr) Date Time Temp Pulse Resp B/P (MAP) Pulse Ox O2 Delivery O2 Flow Rate FiO2 10/29/25 07:11 84 18 N/A Room Air 21 10/29/25 07:11 84 17 10/29/25 07:00 98.2 88 18 107/70 99 Room Air 10/29/25 04:00 98.4 84 15 98/58 92 Room Air LABS: Hematology Labs: Test 10/28/25 05:50 Range/Units White Blood Count 8.0 4.8-10.8 K/uL Red Blood Count 4.13 4.00-5.50 MIL/uL Hemoglobin 9.5 L 12.0-16.0 g/dL Hematocrit 32.7 L 36-48 % Mean Corpuscular Volume 79.2 79-99 fL Mean Corpuscular Hemoglobin 23.0 L 27.0-33.0 pg Mean Corpuscular Hemoglobin Concent 29.1 L 32.0-36.0 g/dL Red Cell Distribution Width 29.6 H 11.0-15.5 % Platelet Count 261 130-400 K/uL Mean Platelet Volume 7.5-10.5 fL Immature Granulocyte % (Auto) 0.4 0-1 % Neutrophils (%) (Auto) 74.0 40.0-77.0 % Lymphocytes (%) (Auto) 13.2 L 21.0-51.0 % Monocytes (%) (Auto) 9.0 3.0-13.0 % Eosinophils (%) (Auto) 2.5 0.0-8.0 % Basophils (%) (Auto) 0.9 0.0-5.0 % Neutrophils # (Auto) 6.0 1.8-7.7 K/uL Lymphocytes # (Auto) 1.1 1.0-4.8 K/uL Monocytes # (Auto) 0.7 0.1-1.0 K/uL Eosinophils # (Auto) 0.20 0.00-0.70 K/uL Basophils # (Auto) 0.07 0.00-0.20 K/uL Absolute Immature Granulocyte (auto 0.03 0-1 K/uL Nucleated Red Blood Cells 0.2 H 0.0-0.19 % Chemistry Labs: Test 10/29/25 05:04 10/29/25 03:53 10/28/25 15:40 Range/Units Whole Blood Glucose 126 H 70-110 MG/DL Sodium Level 141 136-145 mmol/L Potassium Level 3.3 L 3.5-5.1 mmol/L Chloride Level 106 101-111 mmol/L Carbon Dioxide Level 28 21-32 mmol/L Blood Urea Nitrogen 22 H 7-18 mg/dL Creatinine 1.1 H 0.5-1.0 mg/dL Glomerular Filtration Rate Calc 59 >90 mL/min Random Glucose 135 H 70-105 mg/dL Total Calcium 7.8 L 8.5-10.1 mg/dL Total Bilirubin 1.1 H 0.2-1.0 mg/dL Aspartate Amino Transf (AST/SGOT) 27 10-37 U/L Alanine Aminotransferase (ALT/SGPT) 26 12-78 U/L Alkaline Phosphatase 231 H 50-136 U/L Total Protein 6.0 6.0-8.3 g/dL Albumin 1.6 L 3.5-5.0 g/dL Bedside Glucose Comment Notified Nurse DIAGNOSTICS / RADIOLOGY RESULTS: [ ] PLAN NEURO: Minimize central acting medications as possible. Maintain fall precautions, adequate lighting during the day PULMONARY: Supplemental 02 as needed. Maintain aspiration precautions at all times CARDIOVASCULAR: Follow hemodynamics. Vital signs per facility protocol GI & NUTRITION: Continue with nutritional support. Continue stool softeners and laxatives as needed. KIDNEYS & ELECTROLYTES: Strict monitoring of intake, output and overall fluid balance. Avoid nephrotoxic medications to the extent possible. Medications to be dosed according to renal function. Monitor electrolytes and replace as needed ENDOCRINE: Maintain blood glucose between 100-180 at all times. Hypoglycemia protocol in place INFECTIOUS DISEASE: Trend temperature, WBC and procalcitonin level Follow cultures, deescalate antibiotics as soon as possible. Panculture if new onset fever ONCOLOGY/HEMATOLOGY/COAGULATION: Monitor for s/s of bleeding Monitor hemoglobin, coagulation studies as needed SKIN: Pressure ulcer prevention per facility protocol Specialty mattress Wound care to left TMA ORTHO/REHAB: Continue PT/OT Prophylaxis: Continue GI and DVT prophylaxis Pantoprazole and Heparin Code Status: Full Resuscitation Disposition: LUPIS VIDALES AGACNP Oct 29, 2025 09:50
--- NOTE | 2025-10-29 19:40 | PN ---
SUBJECTIVE: The patient is a very pleasant 55-year-old diabetic female who is followed up for acute hypoxic respiratory failure, right-sided pleural effusion, acute diastolic congestive heart failure exacerbation, stage 3 diastolic dysfunction, sepsis multifactorial, acute complicated cystitis, left foot transmetatarsal amputation nonhealing, hypertension, hyperlipidemia, type 2 diabetes with hyperglycemia, acute kidney injury, hyperlipidemia, coronary artery disease, status post coronary artery bypass grafting in 2023, obesity, BMI of 35.5, history of PVD, left TMA on 09/29/2025, nonhealing demarcating necrosis to the stump. MRI performed on 10/28/2025 showed osteomyelitis of the third metatarsal and the fifth metatarsal. The patient is seen today concerned of severe pain to the arch of the left foot. Review of the patient's MRI to the left foot has shown patchy marrow edema, third and fifth residual metatarsal shafts and bases, plantar musculature edema and diffuse subcutaneous tissue edema extending to the distal leg. Ill-defined fluid collection at the level of the amputations. Imaging features concerning for cellulitis with osteomyelitis. The patient has had revascularization procedure of the left lower extremity by the Cardiology Service. They were able to intervene at the superficial femoral, popliteal, and posterior tibial; however, the patient continues to have complete total occlusion of the anterior tibial as well as the dorsalis pedis artery on the left side, not amenable to any revascularization or bypass procedure. OBJECTIVE: EXTREMITIES: The patient's examination today shows the left foot is warm. She has a palpable posterior tibial pulse, nonpalpable anterior tibial pulse on the left. Demarcated area of full-thickness dry eschar-type necrosis to the dorsal and plantar flap in an area of 9 x 12 cm. ASSESSMENT: Demarcating necrosis of the dorsal and plantar flap of the left foot, non-operable, peripheral vascular disease affecting the anterior tibial and dorsalis pedis artery on that left side. The patient is not a candidate for any further revascularization procedure per the Cardiology Service. PLAN: I discussed the findings with the patient today. I will have Dr. Malave discuss with the patient the possibility of healing if surgical intervention is required. The patient has the option of a definitive level of surgery to be determined with the assistance of Dr. Malave, her paper sales representative, to see what actual level of amputation she would heal based on her circulation status. I do not feel the patient is a candidate for any further foot surgery due to the complete total occlusion of the anterior tibial and dorsalis pedis arteries and not amenable to revascularization procedure. Her treatment options at this point remain conservative care, local wound care and IV antibiotics versus a definitive level of amputation. We will ask Dr. Malave to help clarify what level of amputation the patient may heal based on her circulation status on that left side. TID: [id number] RECEIPT: [id number]
--- NOTE | 2025-10-29 22:47 | HMCIMG ---
EXAM: CR Chest, 1 View. CLINICAL HISTORY: Congestion. COMPARISON: Compared with the previous radiograph dated 10/28/2025. FINDINGS: LUNGS AND PLEURAL SPACES: Moderate to large right pleural effusion with adjacent consolidation and atelectasis. No new focal consolidation is identified. No definite pneumothorax is identified. No significant left pleural effusion is seen. MEDIASTINUM: Stable cardiomegaly with pulmonary vascular congestion. BONES: No aggressively appearing osseous lesion was seen. Median sternotomy status. IMPRESSION: 1. Cardiomegaly, pulmonary vascular congestion, and moderate to large right pleural effusion with adjacent consolidation and atelectasis, compatible with moderate congestive heart failure. 2. Compared with the prior radiograph dated 10/28/2025, there is an interval increase in the [id number] right pleural effusion. The rest of the findings are stable. /[place]
[2025-10-30] VITALS (16 sets, daily range): BP systolic 98–118; BP diastolic 62–79; PULSE 83–94; RESP 17–20; TEMP 98–98.9; O2SAT 92–96
[2025-10-30 06:08] LABS: IMMATURE GRANULOCYTE ABSOLUTE 0.04 K/uL (0-1); NUCLEATED RED BLOOD CELLS 0.0 % (0.0-0.19); PLATELET COUNT (AUTO) 224 K/uL (130-400); RED BLOOD CELL COUNT(AUTO) 4.06 MIL/uL (4.00-5.50); RED CELL DISTRIBUTION WIDTH 29.8 % (11.0-15.5); WHITE BLOOD COUNT (AUTO) 7.7 K/uL (4.8-10.8)
[2025-10-30 06:26] LABS: CREATININE 1.1 mg/dL (0.5-1.0); GLOMERULAR FILTR. RATE CALC 59.0 mL/min (>90); GLUCOSE,RANDOM 118.0 mg/dL (70-105); SODIUM SERUM 140.0 mmol/L (136-145); UREA NITROGEN, BLOOD 24.0 mg/dL (7-18)
--- NOTE | 2025-10-30 09:25 | PN ---
[facility] PROGRESS NOTE Date Patient Seen: Oct 30, 2025 Time of Visit: 09:21 Supervising Physician: [Dr. George ] Primary Care Physician: Ger Zhang Outpatient Specialists: [ ] Inpatient Consults: Dr. Cox, Dr. Angel Ingram PROBLEM LIST: Acute hypoxic respiratory failure, likely from right-sided pleural effusion Acute diastolic CHF exacerbation,50-55%, stage III diastolic dysfunction Sepsis, multifactorial, likely from respiratory, genitourinary infection Acute complicated cystitis Left foot TMA 09/11 Osteomyelitis Hypertension Hyperlipidemia DM type II, with hyperglycemia BEN, POA Obesity, BMI of 35.5, History of CAD,CABG, 2023 History of PVD, left TMA 09/2025 INTERVAL HISTORY: Patient seen an examined all labs reviewed. Patient resting in bed comfortably. Dressing to left lower extremity dry and intact. MRI results concerning for Osteomyelitis . Patient remains on room air with good saturations. Xray yesterday demonstrating increased effusion. Metolazone was added patient tolerated well with 2l output overnight Dr. Cox has reviewed finding with patient Patient leaning towards conservative management with IV ABX. PLAN: Start Zosyn and Vanc We will follow Podiatry Recs Supplemental 02 to keep o2 sats >92 Continue to diurese patient Continue Strict I&Os Chest x-ray in am Follow am labs REVIEW OF SYSTEMS: 12 point ROS reviewed with patient. Pertinent positives mentioned above. Otherwise negative. PHYSICAL EXAM: GENERAL: alert, weak, awake oriented x 3 HEENT: EOMI, Sclera non icteric, moist mucosa NECK: Supple, no JVD, trachea midline LUNGS: Diminished bilateral lower lobes HEART: Regular rate and rhythm. Normal S1 and S2, without murmurs ABD: Abdomen soft, nontender. Bowel sounds present EXT: No clubbing cyanosis or edema, left foot TMA NEURO: Alert and oriented to person, follows commands Vital Signs (last 8hr) Date Time Temp Pulse Resp B/P (MAP) Pulse Ox O2 Delivery O2 Flow Rate FiO2 10/30/25 08:40 98.1 90 18 115/79 98 Room Air 10/30/25 06:58 83 17 10/30/25 06:57 83 18 N/A Room Air 21 10/30/25 04:00 98.2 86 18 111/79 94 Room Air LABS: Hematology Labs: Test 10/30/25 06:03 Range/Units White Blood Count 7.7 4.8-10.8 K/uL Red Blood Count 4.06 4.00-5.50 MIL/uL Hemoglobin 9.3 L 12.0-16.0 g/dL Hematocrit 31.6 L 36-48 % Mean Corpuscular Volume 77.8 L 79-99 fL Mean Corpuscular Hemoglobin 22.9 L 27.0-33.0 pg Mean Corpuscular Hemoglobin Concent 29.4 L 32.0-36.0 g/dL Red Cell Distribution Width 29.8 H 11.0-15.5 % Platelet Count 224 130-400 K/uL Mean Platelet Volume 7.5-10.5 fL Immature Granulocyte % (Auto) 0.5 0-1 % Neutrophils (%) (Auto) 69.3 40.0-77.0 % Lymphocytes (%) (Auto) 16.2 L 21.0-51.0 % Monocytes (%) (Auto) 10.6 3.0-13.0 % Eosinophils (%) (Auto) 2.6 0.0-8.0 % Basophils (%) (Auto) 0.8 0.0-5.0 % Neutrophils # (Auto) 5.3 1.8-7.7 K/uL Lymphocytes # (Auto) 1.2 1.0-4.8 K/uL Monocytes # (Auto) 0.8 0.1-1.0 K/uL Eosinophils # (Auto) 0.20 0.00-0.70 K/uL Basophils # (Auto) 0.06 0.00-0.20 K/uL Absolute Immature Granulocyte (auto 0.04 0-1 K/uL Nucleated Red Blood Cells 0.0 0.0-0.19 % Chemistry Labs: Test 10/30/25 06:03 10/29/25 20:40 10/29/25 03:53 10/28/25 15:40 Range/Units Sodium Level 140 136-145 mmol/L Potassium Level 3.9 3.5-5.1 mmol/L Chloride Level 103 101-111 mmol/L Carbon Dioxide Level 29 21-32 mmol/L Blood Urea Nitrogen 24 H 7-18 mg/dL Creatinine 1.1 H 0.5-1.0 mg/dL Glomerular Filtration Rate Calc 59 >90 mL/min Random Glucose 118 H 70-105 mg/dL Total Calcium 8.3 L 8.5-10.1 mg/dL Whole Blood Glucose 164 H 70-110 MG/DL Total Bilirubin 1.1 H 0.2-1.0 mg/dL Aspartate Amino Transf (AST/SGOT) 27 10-37 U/L Alanine Aminotransferase (ALT/SGPT) 26 12-78 U/L Alkaline Phosphatase 231 H 50-136 U/L Total Protein 6.0 6.0-8.3 g/dL Albumin 1.6 L 3.5-5.0 g/dL Bedside Glucose Comment Notified Nurse DIAGNOSTICS / RADIOLOGY RESULTS: [ ] PLAN NEURO: Minimize central acting medications as possible. Maintain fall precautions, adequate lighting during the day PULMONARY: Supplemental 02 as needed. Maintain aspiration precautions at all times CARDIOVASCULAR: Follow hemodynamics. Vital signs per facility protocol GI & NUTRITION: Continue with nutritional support. Continue stool softeners and laxatives as needed. KIDNEYS & ELECTROLYTES: Strict monitoring of intake, output and overall fluid balance. Avoid nephrotoxic medications to the extent possible. Medications to be dosed according to renal function. Monitor electrolytes and replace as needed ENDOCRINE: Maintain blood glucose between 100-180 at all times. Hypoglycemia protocol in place INFECTIOUS DISEASE: Trend temperature, WBC and procalcitonin level Follow cultures, deescalate antibiotics as soon as possible. Panculture if new onset fever ONCOLOGY/HEMATOLOGY/COAGULATION: Monitor for s/s of bleeding Monitor hemoglobin, coagulation studies as needed SKIN: Pressure ulcer prevention per facility protocol Specialty mattress Wound care to left TMA ORTHO/REHAB: Continue PT/OT Prophylaxis: Continue GI and DVT prophylaxis Pantoprazole and Heparin Code Status: Full Resuscitation Disposition: LUPIS VIDALES AGACNP Oct 30, 2025 09:25
--- NOTE | 2025-10-30 10:06 | PN ---
SUBJECTIVE: The patient is a very pleasant 55-year-old diabetic Latin-[place] female who is followed up for a diabetic ulcer, nonhealing, demarcating necrosis to the transmetatarsal amputation stump on the left. She has been evaluated by her motorcycle designer. She has had repeat arterial Doppler studies. The results of the repeat arterial Doppler studies on that left side show that the common femoral, superficial femoral, popliteal, and posterior tibial demonstrate normal triphasic waveforms. The anterior tibial is occluded. The dorsalis pedis artery is occluded. Cardiology has no intervention to offer the patient to improve the occluded anterior tibial and dorsalis pedis artery on that left side. I would not recommend any further foot surgery for this patient given her complete total occlusion of the anterior tibial and dorsalis pedis artery on that left side that is nonoperable. OBJECTIVE: The patient continues to be afebrile, 98.1, pulse 90, respirations 18, blood pressure 115/79, white count 7.2, H and H 9.3 and 31.6, platelets 224, BUN 24, creatinine 1.1. The patient is being followed now for acute hypoxic respiratory failure, acute diastolic congestive heart failure, sepsis, acute complicated cystitis, left foot transmetatarsal amputation, nonhealing, hypertension, hyperlipidemia, diabetes with hyperglycemia, acute kidney injury, obesity, history of coronary artery disease status post CABG. History of peripheral vascular disease with nonoperable peripheral vascular disease, anterior tibial and dorsalis pedis artery on the left, demarcating necrosis of the plantar flap of the transmetatarsal amputation on the left. REVIEW OF SYSTEMS: CONSTITUTIONAL: The patient states she is feeling better in terms of her breathing, no longer on supplemental oxygen. HEENT: No problems with eyes, ears, nose, or throat. CARDIOVASCULAR: She has nonoperable peripheral vascular disease of the anterior tibial and dorsalis pedis artery on the left. GENITOURINARY: Elevated renal function. GASTROINTESTINAL: Dysphagia. ENDOCRINE: Diabetes. PSYCHIATRIC: Denied any depression. MUSCULOSKELETAL: She has pain to the mid arch area of her left foot. INTEGUMENTARY: Area of dry necrosis to the dorsal and plantar flap of the left transmetatarsal amputation 9 x 12 cm. No abscess appreciated. No ascending cellulitis. MRI showing osteomyelitis to the stump of the 3rd and stump of the 5th metatarsal on the left. ASSESSMENT: Demarcated necrosis of the transmetatarsal amputation on the left. MRI 3rd and 5th metatarsals per the MRI. Nonoperable peripheral vascular disease affecting the anterior tibial and dorsalis pedis on the left per Cardiology service. The patient with now ischemic rest pain to the left foot. PLAN: Treatment options for this patient. Continue conservative care, IV antibiotics, and local wound care. I do not feel the patient is a realistic candidate for any further foot surgery due to complete total occlusion of the anterior tibial and dorsalis pedis artery on the left. The patient's other option may be a higher level of amputation to be determined by the Cardiology service. The patient at this point appears to be favoring conservative care for the left foot nonhealing surgical site. TID: [id number] RECEIPT: [id number]
[2025-10-30] MEDS ORDERED: VANCOMYCIN PROTOCOL PER PHARMACY IV SCH (10:30)
[2025-10-30] MEDS: ZOSYN 3.375GM +NS 50ML IVPB SCH (10:31)
[2025-10-30] MEDS: VANCOMYCIN 1.75 GM/250 ML BAG 250 ML IV SCH (15:42)
[2025-10-31] VITALS (12 sets, daily range): BP systolic 98–106; BP diastolic 64–70; PULSE 76–102; RESP 16–18; TEMP 97.6–97.8; O2SAT 92–98
--- NOTE | 2025-10-31 03:45 | NUR ---
PT TRANSFERRED TO ROOM 331 REPORT GIVEN TO NURSE AMAURY STEVE
[2025-10-31 05:32] LABS: IMMATURE GRANULOCYTE ABSOLUTE 0.03 K/uL (0-1); NUCLEATED RED BLOOD CELLS 0.0 % (0.0-0.19); PLATELET COUNT (AUTO) 257 K/uL (130-400); RED BLOOD CELL COUNT(AUTO) 3.99 MIL/uL (4.00-5.50); RED CELL DISTRIBUTION WIDTH 29.8 % (11.0-15.5); WHITE BLOOD COUNT (AUTO) 8.0 K/uL (4.8-10.8)
[2025-10-31 05:46] LABS: ASPARTATE AMINOTRANSFERASE 31.0 U/L (10-37); CREATININE 1.0 mg/dL (0.5-1.0); GLOMERULAR FILTR. RATE CALC 67.0 mL/min (>90); GLUCOSE,RANDOM 124.0 mg/dL (70-105); SODIUM SERUM 139.0 mmol/L (136-145); TOTAL PROTEIN, SERUM 6.1 g/dL (6.0-8.3); UREA NITROGEN, BLOOD 25.0 mg/dL (7-18)
--- NOTE | 2025-10-31 11:17 | PN ---
[facility] PROGRESS NOTE Date Patient Seen: Oct 31, 2025 Time of Visit: 11:06 Supervising Physician: [Dr George Primary Care Physician: Ger Zhang Outpatient Specialists: [ ] Inpatient Consults: Dr. Cox, Dr. Angel Ingram PROBLEM LIST: Acute hypoxic respiratory failure, likely from right-sided pleural effusion - resolved Acute diastolic CHF exacerbation,50-55%, stage III diastolic dysfunction Sepsis, multifactorial, likely from respiratory, genitourinary infection Acute complicated cystitis Left foot TMA 09/11 Osteomyelitis Hypertension Hyperlipidemia DM type II, with hyperglycemia BEN, POA Obesity, BMI of 35.5, History of CAD,CABG, 2023 History of PVD, left TMA 09/2025 INTERVAL HISTORY: 55-year-old female with past medical history of hypertension, hyperlipidemia, DM type 2, obesity, PVD, status post recent left TMA with Dr. Cox who [facility] for low oxygen saturation, and worsening shortness of breaths. Patient was seen and examined in ED with no relatives present at bedside. Apparently patient recently had left TMA last month, was sent to above-mentioned rehab for continued recovery and long-term antibiotic therapy. Today he started to have some shortness of breath with associated cough. She was sent to ER for further medical evaluation. Her symptoms are not associated with fever, cough with phlegm, chest pain, or confusion. On evaluation patient was found to have low oxygen saturation improved with administration of oxygen and IV Lasix. In ED stat chest x-ray was done and showed large right-sided pleural effusion, CBC showed mild leukocytosis with normocytic anemia , her chemistry significant for creatinine level of 1.7, BNP of more than 3000, initial lactic acid was normal, with normal procalcitonin level. Her COVID and flu tests were also negative. Patient has remote history of smoking, denies any alcohol intake, or illicit drug use. 10/30 - Patient seen an examined all labs reviewed. Patient resting in bed comfortably. Dressing to left lower extremity dry and intact. MRI results concerning for Osteomyelitis . Patient remains on room air with good saturations. Xray yesterday demonstrating increased effusion. Metolazone was added patient tolerated well with 2l output overnight Dr. Cox has reviewed finding with patient Patient leaning towards conservative management with IV ABX. 10/31 - patient is seen and evaluated at the bedside. Patient is sitting up in bed resting quietly continues to complain of pain to the left foot. Dressing is dry and intact. Patient continues on broad-spectrum antibiotics. Patient was re-evaluated by Dr. Cox and reports cardiology has no intervention to offer the patient to improve the occluded anterior tibial and dorsalis pedis artery left side. No further surgical recommendations given her complete total occlusions of the left foot. Discussed these recommendations with the patient and she reports that patient case coordinator told her that everything was fine therefore she is somewhat confused. Patient reports she would like to speak to a patient case coordinator once again. Patient underwent peripheral angiogram and final impression reports adequate blood circulation to both of her feet. Recommendations were medical management. We will continue current antibiotic treatment as well as local wound care for now. MRI reports possible osteomyelitis. Vital signs are stable. Labs are within normal limits. PLAN: Supplemental oxygen as needed Continue cefepime Continue vancomycin Follow up with Dr. Cox's recommendations Continue local wound care Continue to diurese patient Continue Strict I&Os Follow am labs REVIEW OF SYSTEMS: 12 point ROS reviewed with patient. Pertinent positives mentioned above. Otherwise negative. PHYSICAL EXAM: GENERAL: alert, weak, awake oriented x 3 HEENT: EOMI, Sclera non icteric, moist mucosa NECK: Supple, no JVD, trachea midline LUNGS: Diminished bilateral lower lobes HEART: Regular rate and rhythm. Normal S1 and S2, without murmurs ABD: Abdomen soft, nontender. Bowel sounds present EXT: No clubbing cyanosis or edema, left foot TMA NEURO: Alert and oriented to person, follows commands Vital Signs (last 8hr) Date Time Temp Pulse Resp B/P (MAP) Pulse Ox O2 Delivery O2 Flow Rate FiO2 10/31/25 08:00 97.9 84 17 103/67 92 Room Air 10/31/25 06:52 88 18 N/A Room Air 21 10/31/25 06:49 82 18 10/31/25 04:00 97.5 82 16 98/65 93 Room Air LABS: Hematology Labs: Test 10/31/25 05:24 Range/Units White Blood Count 8.0 4.8-10.8 K/uL Red Blood Count 3.99 L 4.00-5.50 MIL/uL Hemoglobin 9.2 L 12.0-16.0 g/dL Hematocrit 31.0 L 36-48 % Mean Corpuscular Volume 77.7 L 79-99 fL Mean Corpuscular Hemoglobin 23.1 L 27.0-33.0 pg Mean Corpuscular Hemoglobin Concent 29.7 L 32.0-36.0 g/dL Red Cell Distribution Width 29.8 H 11.0-15.5 % Platelet Count 257 130-400 K/uL Mean Platelet Volume 7.5-10.5 fL Immature Granulocyte % (Auto) 0.4 0-1 % Neutrophils (%) (Auto) 74.1 40.0-77.0 % Lymphocytes (%) (Auto) 12.2 L 21.0-51.0 % Monocytes (%) (Auto) 9.4 3.0-13.0 % Eosinophils (%) (Auto) 3.0 0.0-8.0 % Basophils (%) (Auto) 0.9 0.0-5.0 % Neutrophils # (Auto) 5.9 1.8-7.7 K/uL Lymphocytes # (Auto) 1.0 1.0-4.8 K/uL Monocytes # (Auto) 0.8 0.1-1.0 K/uL Eosinophils # (Auto) 0.24 0.00-0.70 K/uL Basophils # (Auto) 0.07 0.00-0.20 K/uL Absolute Immature Granulocyte (auto 0.03 0-1 K/uL Nucleated Red Blood Cells 0.0 0.0-0.19 % Chemistry Labs: Test 10/31/25 10:18 10/31/25 05:24 Range/Units Whole Blood Glucose 128 H 70-110 MG/DL Sodium Level 139 136-145 mmol/L Potassium Level 3.4 L 3.5-5.1 mmol/L Chloride Level 101 101-111 mmol/L Carbon Dioxide Level 33 H 21-32 mmol/L Blood Urea Nitrogen 25 H 7-18 mg/dL Creatinine 1.0 0.5-1.0 mg/dL Glomerular Filtration Rate Calc 67 >90 mL/min Random Glucose 124 H 70-105 mg/dL Total Calcium 8.0 L 8.5-10.1 mg/dL Total Bilirubin 1.2 H 0.2-1.0 mg/dL Aspartate Amino Transf (AST/SGOT) 31 10-37 U/L Alanine Aminotransferase (ALT/SGPT) 27 12-78 U/L Alkaline Phosphatase 238 H 50-136 U/L Total Protein 6.1 6.0-8.3 g/dL Albumin 1.6 L 3.5-5.0 g/dL DIAGNOSTICS / RADIOLOGY RESULTS: [ ] PLAN NEURO: Minimize central acting medications as possible. Maintain fall precautions, adequate lighting during the day PULMONARY: Supplemental 02 as needed. Maintain aspiration precautions at all times CARDIOVASCULAR: Follow hemodynamics. Vital signs per facility protocol GI & NUTRITION: Continue with nutritional support. Continue stool softeners and laxatives as needed. KIDNEYS & ELECTROLYTES: Strict monitoring of intake, output and overall fluid balance. Avoid nephrotoxic medications to the extent possible. Medications to be dosed according to renal function. Monitor electrolytes and replace as needed ENDOCRINE: Maintain blood glucose between 100-180 at all times. Hypoglycemia protocol in place INFECTIOUS DISEASE: Trend temperature, WBC and procalcitonin level Follow cultures, deescalate antibiotics as soon as possible. Panculture if new onset fever ONCOLOGY/HEMATOLOGY/COAGULATION: Monitor for s/s of bleeding Monitor hemoglobin, coagulation studies as needed SKIN: Pressure ulcer prevention per facility protocol Specialty mattress Wound care to left TMA ORTHO/REHAB: Continue PT/OT Prophylaxis: Continue GI and DVT prophylaxis Pantoprazole and Heparin Code Status: Full Resuscitation Disposition: Home vs SNF ATTESTATION BY PHYSICIAN I have evaluated the patient chart, medical records, and spoke with appropriate staff. I reviewed the documentation, medical decision making, and treatment plan as noted by the mid-level provider above. I agree with the findings and plan of care. Justo George MD, ECTOR N FNP Oct 31, 2025 11:17
--- NOTE | 2025-10-31 11:23 | PN ---
SUBJECTIVE: The patient is a very pleasant 55-year-old diabetic female who is followed up for diabetic ulcer, nonhealing with demarcating necrosis to the transmetatarsal amputation stump on the left. She has been evaluated by her derrick engineer. She has had repeat arterial Doppler. The results of the arterial Doppler studies on that left side showed the common femoral, superficial femoral, popliteal and posterior tibial artery demonstrating normal triphasic waveforms. The anterior tibial artery is occluded. The dorsalis pedis artery is occluded on that left side. I would not recommend any further foot surgery on this patient given the complete total occlusion of the anterior tibial and dorsalis pedis artery on the left side that is nonoperative per the Cardiology service. The patient continues to be afebrile 97.5, pulse 82, respirations 16, blood pressure 98/65. White count 8.0, H and H 9.2 and 31.0, platelets 257, neutrophils 74.1. Albumin 1.6. BUN 25, creatinine 1.0. The patient is currently receiving IV vancomycin and Zosyn. The patient is being followed now for acute hypoxic respiratory failure, acute diastolic congestive heart failure, coronary artery disease, status post CABG, sepsis, acute complicated cystitis, left foot transmetatarsal amputation stump, nonhealing dorsal flap, nonoperable peripheral vascular disease affecting the anterior tibial and dorsalis pedis artery on the left per Cardiology, hypertension, hyperlipidemia, diabetes with hyperglycemia, acute kidney injury, obesity, history of coronary artery disease, status post CABG, history of peripheral vascular disease, nonoperable, anterior tibial and dorsalis pedis artery, demarcating necrosis to the plantar as well as the dorsal flap of the transmetatarsal amputation on the left. REVIEW OF SYSTEMS: HEENT: No problems with eyes, ears, nose or throat. CARDIOVASCULAR: Non-operable peripheral vascular disease, coronary artery disease. GENITOURINARY: Elevated renal function. GASTROINTESTINAL: The patient has dysphagia due to swelling of her uvula. ENDOCRINE: Diabetes. PSYCHIATRIC: Denied any depression. MUSCULOSKELETAL: Pain to the mid arch area of the left foot. She has an area of demarcated necrosis 12 x 9 cm to the distal and dorsal aspect of the transmetatarsal amputation stump on the left. She has documented osteomyelitis of the third metatarsal and the fifth metatarsal on the left per MRI. ASSESSMENT: Demarcated necrosis of the transmetatarsal amputation on the left. MRI shows osteomyelitis of the third and fifth metatarsal, non-operable peripheral vascular disease affecting the anterior tibial and dorsalis pedis artery on the left. The patient is being followed by cardiology service. The patient now appears to have ischemic rest pain to the left foot. PLAN: I discussed treatment options with the patient. The patient can continue with conservative care with IV antibiotics, local wound care and pain management. I do not feel the patient is a candidate for any further foot surgery due to the complete total occlusion of the anterior tibial and dorsalis pedis artery on the left. The patient's other option is a higher level of amputation to be determined by Cardiology service. I will order a re-consult with the Cardiology service to discuss the patient's healing potential. For now, the patient appears to be favoring conservative care for her treatment option for the left foot demarcated necrosis. TID: [id number] RECEIPT: [id number]
--- NOTE | 2025-10-31 11:32 | HMCIMG ---
EXAM: CR Chest, 1 View. CLINICAL HISTORY: effusion COMPARISON: 10/29/2025 FINDINGS: LUNGS: Mild interval reduction in the right pleural effusion and adjacent lung atelectasis. The left lung is essentially clear. PLEURAL SPACES: No pneumothorax. MEDIASTINUM: Stable cardiomegaly with mild pulmonary vascular congestion. Median sternotomy sutures noted. BONES: No aggressive appearing osseous lesion seen. IMPRESSION: 1. Mild reduction in right pleural effusion with adjacent lung atelectasis. 2. Stable cardiomegaly with mild pulmonary vascular congestion. /[place]
[2025-11-01] VITALS (13 sets, daily range): BP systolic 90–110; BP diastolic 54–63; PULSE 76–91; RESP 16–18; TEMP 97–98.2; O2SAT 94–96
[2025-11-01 04:20] LABS: NUCLEATED RED BLOOD CELLS 0.0 % (0.0-0.19); PLATELET COUNT (AUTO) 245 K/uL (130-400); RED BLOOD CELL COUNT(AUTO) 4.02 MIL/uL (4.00-5.50); RED CELL DISTRIBUTION WIDTH 29.2 % (11.0-15.5); WHITE BLOOD COUNT (AUTO) 8.3 K/uL (4.8-10.8)
[2025-11-01 04:35] LABS: CREATININE 1.1 mg/dL (0.5-1.0); GLOMERULAR FILTR. RATE CALC 59.0 mL/min (>90); GLUCOSE,RANDOM 108.0 mg/dL (70-105); SODIUM SERUM 137.0 mmol/L (136-145); UREA NITROGEN, BLOOD 24.0 mg/dL (7-18)
--- NOTE | 2025-11-01 08:52 | PN ---
[facility] PROGRESS NOTE Date Patient Seen: Nov 01, 2025 Time of Visit: 08:52 Supervising Physician: Dr uSdeep Early Primary Care Physician: Dr. Ger Zhang Outpatient Specialists: [ ] Inpatient Consults: Dr. Cox, Dr. Angel Ingram PROBLEM LIST: Acute hypoxic respiratory failure, likely from right-sided pleural effusion - resolved Acute diastolic CHF exacerbation,50-55%, stage III diastolic dysfunction Sepsis, multifactorial, likely from respiratory, genitourinary infection Acute complicated cystitis Left foot TMA 09/11 Osteomyelitis Hypertension Hyperlipidemia DM type II, with hyperglycemia BEN, POA Obesity, BMI of 35.5, History of CAD,CABG, 2023 History of PVD, left TMA 09/2025 INTERVAL HISTORY: 55-year-old female with past medical history of hypertension, hyperlip idemia, DM type 2, obesity, PVD, status post recent left TMA with Dr. Cox who [facility] to [facility] for low oxygen saturation, and worsening shortness of breaths. Patient was seen and examined in ED with no relatives present at bedside. Apparently patient recently had left TMA last month, was sent to above-mentioned rehab for continued recovery and long-term antibiotic therapy. Today he started to have some shortness of breath with associated cough. She was sent to ER for further medical evaluation. Her symptoms are not associated with fever, cough with phlegm, chest pain, or confusion. On evaluation patient was found to have low oxygen saturation improved with administration of oxygen and IV Lasix. In ED stat chest x-ray was done and showed large right-sided pleural effusion, CBC showed mild leukocytosis with normocytic anemia , her chemistry significant for creatinine level of 1.7, BNP of more than 3000, initial lactic acid was normal, with normal procalcitonin level. Her COVID and flu tests were also negative. Patient has remote history of smoking, denies any alcohol intake, or illicit drug use. 10/30 - Patient seen an examined all labs reviewed. Patient resting in bed comfortably. Dressing to left lower extremity dry and intact. MRI results concerning for Osteomyelitis . Patient remains on room air with good saturations. Xray yesterday demonstrating increased effusion. Metolazone was added patient tolerated well with 2l output overnight Dr. Cox has reviewed finding with patient Patient leaning towards conservative management with IV ABX. 10/31 - patient is seen and evaluated at the bedside. Patient is sitting up in bed resting quietly continues to complain of pain to the left foot. Dressing is dry and intact. Patient continues on broad-spectrum antibiotics. Patient was re-evaluated by Dr. Cox and reports cardiology has no intervention to offer the patient to improve the occluded anterior tibial and dorsalis pedis artery left side. No further surgical recommendations given her complete total occlusions of the left foot. Discussed these recommendations with the patient and she reports that industrial hygenist told her that everything was fine therefore she is somewhat confused. Patient reports she would like to speak to a industrial hygenist once again. Patient underwent peripheral angiogram and final impression reports adequate blood circulation to both of her feet. Recommendations were medical management. We will continue current antibiotic treatment as well as local wound care for now. MRI reports possible osteomyelitis. Vital signs are stable. Labs are within normal limits. 11/01-patient examined and seen while resting in bed head of the bed is elevated, accompanied by patient's bedside nurse, patient is awake alert and oriented and appears in no acute distress. Nursing staff reports no adverse events occurring overnight. Patient is has stable vital signs and afebrile. Discussed with patient verse ME results concerning for osteomyelitis left lower extremity. The approach so far has been consulted with antibiotics the wound is not healing on the left status post TMA my metatarsal digits three and five. Recommendations has been for very conservative approach. Patient is on it. Patient had concerns that maybe her blood flow was in his bed on her left lower leg. Patient discussed with me the options for possibility if surgery can be done to remove this infected part of her left lower leg in stable portion of her left leg reducing the risk of continuous osteomyelitis of the left lower extremity which has a poor blood flow. We will have Cardiology come and see the patient. We will follow up with other specialists has been consulted for the patient's care. Further orders per course of stay. A.m. labs ordered. PLAN: Supplemental oxygen as needed Continue cefepime Continue vancomycin Follow up with Dr. Cox's recommendations Surgical intervention possibility, patient interested, improving overall health of left lower extremity. Continue local wound care Continue to diurese patient Continue Strict I&Os Follow am labs REVIEW OF SYSTEMS: 12 point ROS reviewed with patient. Pertinent positives mentioned above. Otherwise negative. PHYSICAL EXAM: GENERAL: alert, weak, awake oriented x 3 HEENT: EOMI, Sclera non icteric, moist mucosa NECK: Supple, no JVD, trachea midline LUNGS: Diminished bilateral lower lobes HEART: Regular rate and rhythm. Normal S1 and S2, without murmurs ABD: Abdomen soft, nontender. Bowel sounds present EXT: No clubbing cyanosis or edema, left foot TMA NEURO: Alert and oriented to person, follows commands Vital Signs (last 8hr) Date Time Temp Pulse Resp B/P (MAP) Pulse Ox O2 Delivery O2 Flow Rate FiO2 11/01/25 08:00 97.9 86 18 104/61 96 Room Air 11/01/25 06:21 86 18 11/01/25 06:20 86 18 N/A Room Air 21 11/01/25 04:00 97.0 81 17 110/62 94 Room Air LABS: Hematology Labs: Test 11/01/25 04:04 10/31/25 05:24 Range/Units White Blood Count 8.3 4.8-10.8 K/uL Red Blood Count 4.02 4.00-5.50 MIL/uL Hemoglobin 9.3 L 12.0-16.0 g/dL Hematocrit 30.9 L 36-48 % Mean Corpuscular Volume 76.9 L 79-99 fL Mean Corpuscular Hemoglobin 23.1 L 27.0-33.0 pg Mean Corpuscular Hemoglobin Concent 30.1 L 32.0-36.0 g/dL Red Cell Distribution Width 29.2 H 11.0-15.5 % Platelet Count 245 130-400 K/uL Mean Platelet Volume 7.5-10.5 fL Nucleated Red Blood Cells 0.0 0.0-0.19 % Immature Granulocyte % (Auto) 0.4 0-1 % Neutrophils (%) (Auto) 74.1 40.0-77.0 % Lymphocytes (%) (Auto) 12.2 L 21.0-51.0 % Monocytes (%) (Auto) 9.4 3.0-13.0 % Eosinophils (%) (Auto) 3.0 0.0-8.0 % Basophils (%) (Auto) 0.9 0.0-5.0 % Neutrophils # (Auto) 5.9 1.8-7.7 K/uL Lymphocytes # (Auto) 1.0 1.0-4.8 K/uL Monocytes # (Auto) 0.8 0.1-1.0 K/uL Eosinophils # (Auto) 0.24 0.00-0.70 K/uL Basophils # (Auto) 0.07 0.00-0.20 K/uL Absolute Immature Granulocyte (auto 0.03 0-1 K/uL Chemistry Labs: Test 11/01/25 05:23 11/01/25 04:04 10/31/25 05:24 Range/Units Whole Blood Glucose 112 H 70-110 MG/DL Sodium Level 137 136-145 mmol/L Potassium Level 3.1 L 3.5-5.1 mmol/L Chloride Level 95 L 101-111 mmol/L Carbon Dioxide Level 37 H 21-32 mmol/L Blood Urea Nitrogen 24 H 7-18 mg/dL Creatinine 1.1 H 0.5-1.0 mg/dL Glomerular Filtration Rate Calc 59 >90 mL/min Random Glucose 108 H 70-105 mg/dL Total Calcium 8.3 L 8.5-10.1 mg/dL Procalcitonin 0.18 0.05-0.5 ng/mL Total Bilirubin 1.2 H 0.2-1.0 mg/dL Aspartate Amino Transf (AST/SGOT) 31 10-37 U/L Alanine Aminotransferase (ALT/SGPT) 27 12-78 U/L Alkaline Phosphatase 238 H 50-136 U/L Total Protein 6.1 6.0-8.3 g/dL Albumin 1.6 L 3.5-5.0 g/dL DIAGNOSTICS / RADIOLOGY RESULTS: [ ] PLAN NEURO: Minimize central acting medications as possible. Maintain fall precautions, adequate lighting during the day PULMONARY: Supplemental 02 as needed. Maintain aspiration precautions at all times CARDIOVASCULAR: Follow hemodynamics. Vital signs per facility protocol GI & NUTRITION: Continue with nutritional support. Continue stool softeners and laxatives as needed. KIDNEYS & ELECTROLYTES: Strict monitoring of intake, output and overall fluid balance. Avoid nephrotoxic medications to the extent possible. Medications to be dosed according to renal function. Monitor electrolytes and replace as needed ENDOCRINE: Maintain blood glucose between 100-180 at all times. Hypoglycemia protocol in place INFECTIOUS DISEASE: Trend temperature, WBC and procalcitonin level Follow cultures, deescalate antibiotics as soon as possible. Panculture if new onset fever ONCOLOGY/HEMATOLOGY/COAGULATION: Monitor for s/s of bleeding Monitor hemoglobin, coagulation studies as needed SKIN: Pressure ulcer prevention per facility protocol Specialty mattress Wound care to left TMA ORTHO/REHAB: Continue PT/OT Prophylaxis: Continue GI and DVT prophylaxis Pantoprazole and Heparin Code Status: Full Resuscitation Disposition: Home vs SNF [facility] Nov 01, 2025 08:52
--- NOTE | 2025-11-01 12:41 | NUR ---
NURSING NOTE PREVIOUS GORDON WAS REMOVED AND EXCHANGED WITH 16 FR GORDON. PATIENT TOLERATED WELL, ANSWERED ANY QUESTIONS OR CONCERNS PATIENT HAD. CALL LIGHT WITHIN REACH
[2025-11-01] MEDS: HYDROcodone/APAP 5/325 1 TAB TABLET PO PRN (16:59)
[2025-11-02] VITALS (13 sets, daily range): BP systolic 90–100; BP diastolic 54–63; PULSE 84–103; RESP 17–24; TEMP 97.3–98.7; O2SAT 93–95
--- NOTE | 2025-11-02 00:58 | PN ---
SUBJECTIVE: The patient is a very pleasant 55-year-old female, diabetic, followup for diabetic ulcer, nonhealing with demarcating necrosis of the transmetatarsal amputation stump on the left. 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 She has been evaluated by Cardiology. She had repeat Dopplers on this admission. Results of the Doppler studies on the left side showed common femoral, superficial femoral, popliteal and posterior tibial artery demonstrating normal triphasic waveforms. The anterior tibial artery is occluded. The dorsalis pedis artery is occluded on the left side. She continues to be afebrile. Her white count is within normal limits. Exam shows demarcated necrosis area of 9 x 12 cm of the distal and dorsal aspect of the transmetatarsal and pituitary stump on the left. MRI showing osteomyelitis of the first and third metatarsals on that left side. Exam shows demarcating dry necrosis of the transmetatarsal amputation stump on the left. MRI shows osteomyelitis of the third and fifth metatarsals, nonoperable, peripheral vascular disease affecting the anterior tibial and dorsalis pedis artery on the left. Followed by Cardiology service. The patient appears to be having ischemic rest pain to the left foot. At this point, I would not recommend any further foot surgery to this patient given the complete total occlusion of her anterior tibia and dorsalis pedis artery on that left side that is nonoperative per the Cardiology service. Cardiology has been reconcile for recommendations for a level of amputation that may heal given her circulation status. PLAN: I have reconsulted Cardiology for evaluation. I do not feel the patient is a candidate for any further foot surgery due to complete total occlusion of the anterior tibial and dorsalis pedis artery on the left. The patient's treatment options at this point include conservative care with antibiotics and local wound care versus a definitive level of amputation to be determined by the Cardiology service based on her circulation status. TID: [id number] RECEIPT: [id number]
--- NOTE | 2025-11-02 03:40 | PN ---
SUBJECTIVE: The patient continues to have a left foot wound that is not healing. I have discussed with Dr. Cox. He tells me the entire front portion of the foot is black and that there is very little hope of him doing debridement. She denies any chest pain or shortness of breath. OBJECTIVE: VITAL SIGNS: Stable. HEENT: No JVD. LUNGS: Clear. CARDIOVASCULAR: No S3, no S4. ABDOMEN: Benign. EXTREMITIES: No pitting edema. There is a dressing present over the left foot. Groin has no hematoma. FINAL IMPRESSION: * History of ischemic cardiomyopathy that is stable with borderline ejection fraction. * Peripheral vascular disease, status post angiography. * Unhealing wound of the left foot. * Multiple noncardiac issues. RECOMMENDATIONS: * I have reviewed the angiogram again. The patient does have 3 vessels enough up to the ankle. Beyond the ankle, the posterior tibial artery is the major artery. Her dorsalis pedis is diffusely diseased and very small in caliber. She has already had amputations before. * Given the nature of her disease, I have informed the patient that there is not much I can offer her. I have offered a second opinion as well. The caliber of her blood vessels is small and the pathology collector tells me the wound has reached the point of no return. * I have recommended doing TCOMs on her. If truly she has multiple osteomyelitis in multiple bones of the foot and the wound is not progressing in the right direction, then, unfortunately, we may be looking at amputation like a BKA. A BKA stump should heal given her angiographic circulation; however, TCOM would be advisable as well. * I will be available as needed. TID: [id number] RECEIPT: [id number]
[2025-11-02 04:18] LABS: NUCLEATED RED BLOOD CELLS 0.0 % (0.0-0.19); PLATELET COUNT (AUTO) 275 K/uL (130-400); RED BLOOD CELL COUNT(AUTO) 4.39 MIL/uL (4.00-5.50); RED CELL DISTRIBUTION WIDTH 29.2 % (11.0-15.5); WHITE BLOOD COUNT (AUTO) 10.1 K/uL (4.8-10.8)
[2025-11-02 04:31] LABS: INR 1.17 (0.85-1.15)
[2025-11-02 05:12] LABS: ASPARTATE AMINOTRANSFERASE 47.0 U/L (10-37); CREATININE 1.0 mg/dL (0.5-1.0); GLOMERULAR FILTR. RATE CALC 67.0 mL/min (>90); GLUCOSE,RANDOM 116.0 mg/dL (70-105); PHOSPHORUS 3.7 mg/dL (2.5-4.9); SODIUM SERUM 135.0 mmol/L (136-145); TOTAL PROTEIN, SERUM 6.2 g/dL (6.0-8.3); UREA NITROGEN, BLOOD 24.0 mg/dL (7-18)
[2025-11-02 06:30] LABS: ABG BASE EXCESS 16.9 mmol/L (-2.0-3.0); ABG HCO3 42.7 mmol/L (21.0-28.0); ABG OXYGEN SATURATION 91.0 % (94.0-98.0); ABG PCO2 53 mmHg (32-45); ABG PH 7.522 (7.350-7.450); PO2, ARTERIAL BG 55.1 mmHg (83.0-108.0); TEMPERATURE, CELSIUS BG 37.0 CELSIUS (35.5-37.0); VENT MODE, BG RA (ROOM AIR)
--- NOTE | 2025-11-02 11:16 | PN ---
SUBJECTIVE: The patient is a very pleasant 55-year-old diabetic female being followed for congestive heart failure. The patient is currently receiving IV vancomycin and IV cefepime. The patient had a left foot MRI showing osteomyelitis of the fifth and third metatarsals. The patient has nonoperable peripheral vascular disease to her anterior tibial and dorsalis pedis artery per the Cardiology Service. The patient is concerned of severe pain to the left foot. I reviewed treatment options with the patient both conservative and surgical today. Conservative option of local wound care and IV antibiotics with no realistic chance of healing. The patient is not a candidate for foot surgery due to complete total occlusion of the anterior tibial artery on that left side. Her other option is a kiokg-kbd-xryx amputation. The patient states she is interested in a iheht-oko-apjq amputation. I did discuss this with Dr. De La O. He feels she has excellent circulation at the bbcpo-cxs-rqtj amputation level to heal. I will consult Dr. Guanako Perez for evaluation of a fyvel-ebq-grjr amputation on that left side and I talked to Dr. Perez personally over the phone. REVIEW OF SYSTEMS: MUSCULOSKELETAL: Left foot pain. HEENT: No problems with eyes, ears, nose, or throat. CONSTITUTIONAL: No chills. No fevers. No night sweats. GASTROINTESTINAL: No nausea or vomiting. No diarrhea. HEENT: No problems with nose or throat. CARDIOVASCULAR: No current chest pain. GENITOURINARY: The patient has a BUN and a creatinine level 24 and 1.0. PSYCHIATRIC: Denied any depression. MUSCULOSKELETAL: Transmetatarsal amputation on the left. INTEGUMENTARY: Demarcating necrosis in area 12 x 9 cm to the distal and dorsal aspect of the transmetatarsal stump on the left. OBJECTIVE: VITAL SIGNS: Currently afebrile 97.7, blood pressure 100/62, pulse 88, respirations 18. EXTREMITIES: Examination today, the left foot is warm, demarcating necrosis, dry and stable to the dorsal and central aspect of the transmetatarsal amputation on the left 9 x 12 cm squared area. No abscess nor ascending cellulitis. LABORATORY DATA: White count is 10.5, H and H 10.2 and 33.4, platelets 275. BUN and creatinine level 24 and 1.0, potassium 3.1. ASSESSMENT: Demarcating necrosis of the dorsal and distal flap of the transmetatarsal amputation on the left. The patient has complete total occlusion of the anterior tibial artery, not amenable to revascularization procedure per the Cardiology Service. PLAN: I discussed the findings with the patient and she was requesting evaluation for dbwng-tag-hnur amputation. I discussed with Dr. Fry who is planning on evaluating the patient for a syfay-pxw-ycna amputation on the left side. I reviewed the findings with the patient. The patient was in agreement to be evaluated by the general surgery for surgery for a flxxc-xrd-djhc amputation on the left side due to her ischemic rest pain, complete total occlusion of the anterior tibial artery, not amenable to revascularization procedure and the chronic left foot osteomyelitis. TID: [id number] RECEIPT: [id number]
--- NOTE | 2025-11-02 12:32 | HMCIMG ---
EXAM: CR Chest, 1 View. CLINICAL HISTORY: chf COMPARISON: 10/31/2025 FINDINGS: LUNGS: Interval increase in the moderate right pleural effusion with adjacent airspace disease and atelectasis. PLEURAL SPACES: No pneumothorax. MEDIASTINUM: Stable cardiomegaly with increased pulmonary vascular congestion. Median sternotomy sutures present. BONES: No acute osseous abnormality. IMPRESSION: Stable cardiomegaly with interval increase in mild pulmonary vascular congestion and moderate right pleural effusion with adjacent atelectasis. Features may reflect worsening congestive heart failure. /[place]
--- NOTE | 2025-11-02 13:36 | CONS ---
CONSULT NOTE: This is a 55-year-old female who was admitted to the hospital about three weeks ago with congestive heart failure. The patient has a history diabetes mellitus, coronary disease with a CABG and angioplasty in the past, hypertension and multiple surgeries in the left foot for gangrene in the foot. She has been worked out and medically treat the hypoxia when she came to the hospital and now is much better. She also have angiogram was trying to determine if it was feasible to do more procedures with a left foot gangrene. I received a phone call with Dr. Cox who has been seen in this patient and operated in the past and indicated that there is no more surgery possible to do in the foot and he recommended below-knee amputation. The blood supply is seems to be very adequate to have a below-knee amputation according to the notes from Dr. Reece. I have explained to her that the surgery he is very feasible and like any other type of intervention there are some possible complications like wound infections bleeding but he seems to be in a very good size. In order to proceed with this surgery and as indicated before this is the best alternative at this point. I have offered to do surgery this Friday I will come tomorrow as and some questions and we will scheduled to have surgery left below-knee amputation this Friday JAMIR MCLEAN MD Nov 02, 2025 13:36
[2025-11-03] VITALS (13 sets, daily range): BP systolic 90–187; BP diastolic 56–69; PULSE 72–93; RESP 18–20; TEMP 97.8–98.1; O2SAT 95–100
[2025-11-03 04:33] LABS: ABG BASE EXCESS 18.3 mmol/L (-2.0-3.0); ABG HCO3 44.4 mmol/L (21.0-28.0); ABG OXYGEN SATURATION 87.8 % (94.0-98.0); ABG PCO2 55 mmHg (32-45); ABG PH 7.524 (7.350-7.450); PO2, ARTERIAL BG 49.2 mmHg (83.0-108.0); TEMPERATURE, CELSIUS BG 37.0 CELSIUS (35.5-37.0); VENT MODE, BG RA (ROOM AIR)
[2025-11-03 04:35] LABS: NUCLEATED RED BLOOD CELLS 0.0 % (0.0-0.19); PLATELET COUNT (AUTO) 244 K/uL (130-400); RED BLOOD CELL COUNT(AUTO) 4.14 MIL/uL (4.00-5.50); RED CELL DISTRIBUTION WIDTH 28.3 % (11.0-15.5); WHITE BLOOD COUNT (AUTO) 7.7 K/uL (4.8-10.8)
[2025-11-03 04:54] LABS: ASPARTATE AMINOTRANSFERASE 44.0 U/L (10-37); CREATININE 0.9 mg/dL (0.5-1.0); GLOMERULAR FILTR. RATE CALC 76.0 mL/min (>90); GLUCOSE,RANDOM 112.0 mg/dL (70-105); SODIUM SERUM 134.0 mmol/L (136-145); TOTAL PROTEIN, SERUM 6.0 g/dL (6.0-8.3); UREA NITROGEN, BLOOD 22.0 mg/dL (7-18)
--- NOTE | 2025-11-03 05:12 | PN ---
[facility] PROGRESS NOTE BACK DATED ENTRY FOR 11/02/25 1045 Date Patient Seen: Nov 02, 2025 Time of Visit: 10:45 Supervising Physician: Dr. Sudeep Early Primary Care Physician: Dr. Ger Zhang Outpatient Specialists: [ ] Inpatient Consults: Dr. Cox,(podiatry), Dr Guanako Fry (gen surgery), Dr. Angel Ingram (cardiology) PROBLEM LIST: Acute hypoxic respiratory failure, likely from right-sided pleural effusion - resolved Acute diastolic CHF exacerbation,50-55%, stage III diastolic dysfunction Sepsis, multifactorial, likely from respiratory, genitourinary infection Acute complicated cystitis Left foot TMA 09/11 Osteomyelitis Hypertension Hyperlipidemia DM type II, with hyperglycemia BEN, POA Obesity, BMI of 35.5, History of CAD,CABG, 2023 History of PVD, left TMA 09/2025 INTERVAL HISTORY: 55-year-old female with past medical history of hypertension, hyperlipidemia, DM type 2, obesity, PVD, status post recent left TMA with Dr. Cox who [facility] for low oxygen saturation, and worsening shortness of breaths. Patient was seen and examined in ED with no relatives present at bedside. Apparently patient recently had left TMA last month, was sent to above-mentioned rehab for continued recovery and long-term antibiotic therapy. Today he started to have some shortness of breath with associated cough. She was sent to ER for further medical evaluation. Her symptoms are not associated with fever, cough with phlegm, chest pain, or confusion. On evaluation patient was found to have low oxygen saturation improved with administration of oxygen and IV Lasix. In ED stat chest x-ray was done and showed large right-sided pleural effusion, CBC showed mild leukocytosis with normocytic anemia , her chemistry significant for creatinine level of 1.7, BNP of more than 3000, initial lactic acid was normal, with normal procalcitonin level. Her COVID and flu tests were also negative. Patient has remote history of smoking, denies any alcohol intake, or illicit drug use. 10/30 - Patient seen an examined all labs reviewed. Patient resting in bed comfortably. Dressing to left lower extremity dry and intact. MRI results concerning for Osteomyelitis . Patient remains on room air with good saturations. Xray yesterday demonstrating increased effusion. Metolazone was added patient tolerated well with 2l output overnight Dr. Cox has reviewed finding with patient Patient leaning towards conservative management with IV ABX. 10/31 - patient is seen and evaluated at the bedside. Patient is sitting up in bed resting quietly continues to complain of pain to the left foot. Dressing is dry and intact. Patient continues on broad-spectrum antibiotics. Patient was re-evaluated by Dr. Cox and reports cardiology has no intervention to offer the patient to improve the occluded anterior tibial and dorsalis pedis artery left side. No further surgical recommendations given her complete total occlusions of the left foot. Discussed these recommendations with the patient and she reports that managed care coordinator told her that everything was fine therefore she is somewhat confused. Patient reports she would like to speak to a managed care coordinator once again. Patient underwent peripheral angiogram and final impression reports adequate blood circulation to both of her feet. Recommendations were medical management. We will continue current antibiotic treatment as well as local wound care for now. MRI reports possible osteomyelitis. Vital signs are stable. Labs are within normal limits. 11/01-patient examined and seen while resting in bed head of the bed is elevated, accompanied by patient's bedside nurse, patient is awake alert and oriented and appears in no acute distress. Nursing staff reports no adverse events occurring overnight. Patient is has stable vital signs and afebrile. Discussed with patient verse MT results concerning for osteomyelitis left lower extremity. The approach so far has been consulted with antibiotics the wound is not healing on the left status post TMA my metatarsal digits three and five. Recommendations has been for very conservative approach. Patient is on it. Patient had concerns that maybe her blood flow was in his bed on her left lower leg. Patient discussed with me the options for possibility if surgery can be do ne to remove this infected part of her left lower leg in stable portion of her left leg reducing the risk of continuous osteomyelitis of the left lower extremity which has a poor blood flow. We will have Cardiology come and see the patient. We will follow up with other specialists has been consulted for the patient's care. Further orders per course of stay. A.m. labs ordered. 11/02-Seen and examined patient will resting in bed with head of bed elevated family members were present all were friendly and conversant, accompanied by patient's bedside nurse, as well as nursing staff reports no adverse events occurring overnight. Patient awake alert and oriented and appears in no acute distress. Reviewed discussed with patient and family members present vital signs, stable, laboratory results were reviewed and discussed, and the patient has indicated a willingness during this admission to have surgery some form of the amputation to her left lower extremity for the treatment of advanced diabetic ulcer on her left foot and osteomyelitis. Cardiology clinical workup is underway General surgery with tentative plans surgery for 11/04/2025. Clinical workup will include CT chest without contrast and ABG ordered for tomorrow morning to assess pulmonary function prior to surgery. After discussion family nor patient had questions or concerns. Further orders per course of stay. A.m. labs ordered PLAN: Supplemental oxygen as needed Continue cefepime Continue vancomycin Follow up with Dr. Cox's recommendations Surgery scheduled for 11/04/[address] Chest W/O Contrast, awaiting results AM labs & ABG Continue local wound care Continue to diurese patient Continue Strict I&Os Follow am labs REVIEW OF SYSTEMS: 12 point ROS reviewed with patient. Pertinent positives mentioned above. Otherwise negative. PHYSICAL EXAM: GENERAL: alert, weak, awake oriented x 3 HEENT: EOMI, Sclera non icteric, moist mucosa NECK: Supple, no JVD, trachea midline LUNGS: Diminished bilateral lower lobes HEART: Regular rate and rhythm. Normal S1 and S2, without murmurs ABD: Abdomen soft, nontender. Bowel sounds present EXT: No clubbing cyanosis or edema, left foot TMA NEURO: Alert and oriented to person, follows commands Vital Signs (last 8hr) Date Time Temp Pulse Resp B/P (MAP) Pulse Ox O2 Delivery O2 Flow Rate FiO2 11/03/25 00:00 98.1 86 20 187/56 86 Room Air 11/02/25 23:39 86 18 N/A Room Air 21 11/02/25 23:39 86 18 LABS: Hematology Labs: Test 11/03/25 03:55 Range/Units White Blood Count 7.7 4.8-10.8 K/uL Red Blood Count 4.14 4.00-5.50 MIL/uL Hemoglobin 9.5 L 12.0-16.0 g/dL Hematocrit 31.1 L 36-48 % Mean Corpuscular Volume 75.1 L 79-99 fL Mean Corpuscular Hemoglobin 22.9 L 27.0-33.0 pg Mean Corpuscular Hemoglobin Concent 30.5 L 32.0-36.0 g/dL Red Cell Distribution Width 28.3 H 11.0-15.5 % Platelet Count 244 130-400 K/uL Mean Platelet Volume 7.5-10.5 fL Nucleated Red Blood Cells 0.0 0.0-0.19 % Chemistry Labs: Test 11/03/25 03:55 11/02/25 19:36 11/02/25 04:00 Range/Units Sodium Level 134 L 136-145 mmol/L Potassium Level 3.5 3.5-5.1 mmol/L Chloride Level 92 L 101-111 mmol/L Carbon Dioxide Level 39 H 21-32 mmol/L Blood Urea Nitrogen 22 H 7-18 mg/dL Creatinine 0.9 0.5-1.0 mg/dL Glomerular Filtration Rate Calc 76 >90 mL/min Random Glucose 112 H 70-105 mg/dL Total Calcium 8.3 L 8.5-10.1 mg/dL Magnesium Level 1.80 1.80-2.40 mg/dL Total Bilirubin 1.3 H 0.2-1.0 mg/dL Aspartate Amino Transf (AST/SGOT) 44 H 10-37 U/L Alanine Aminotransferase (ALT/SGPT) 39 12-78 U/L Alkaline Phosphatase 276 H 50-136 U/L Total Protein 6.0 6.0-8.3 g/dL Albumin 1.5 L 3.5-5.0 g/dL Whole Blood Glucose 155 H 70-110 MG/DL Lactic Acid Level 1.6 0.8-2.5 mmol/L Phosphorus Level 3.7 2.5-4.9 mg/dL Coagulation Labs: Test 11/02/25 04:00 Range/Units Prothrombin Time 12.2 H 9.6-11.6 SEC Prothromb Time International Ratio 1.17 H 0.85-1.15 Activated Partial Thromboplast Time 31.6 26.3-35.5 SEC DIAGNOSTICS / RADIOLOGY RESULTS: [ ] PLAN NEURO: Minimize central acting medications as possible. Maintain fall precautions, adequate lighting during the day PULMONARY: Supplemental 02 as needed. Maintain aspiration precautions at all times CARDIOVASCULAR: Follow hemodynamics. Vital signs per facility protocol GI & NUTRITION: Continue with nutritional support. Continue stool softeners and laxatives as needed. KIDNEYS & ELECTROLYTES: Strict monitoring of intake, output and overall fluid balance. Avoid nephrotoxic medications to the extent possible. Medications to be dosed according to renal function. Monitor electrolytes and replace as needed ENDOCRINE: Maintain blood glucose between 100-180 at all times. Hypoglycemia protocol in place INFECTIOUS DISEASE: Trend temperature, WBC and procalcitonin level Follow cultures, deescalate antibiotics as soon as possible. Panculture if new onset fever ONCOLOGY/HEMATOLOGY/COAGULATION: Monitor for s/s of bleeding Monitor hemoglobin, coagulation studies as needed SKIN: Pressure ulcer prevention per facility protocol Specialty mattress Wound care to left TMA ORTHO/REHAB: Continue PT/OT Prophylaxis: Continue GI and DVT prophylaxis Pantoprazole and Heparin Code Status: Full Resuscitation Disposition: Home vs SNF GEORGE ESPOSITO AGACNP Nov 03, 2025 05:12
--- NOTE | 2025-11-03 07:39 | NUR ---
HELD SPIROLACTONE AND METOPROLOL DUE TO SOFT B/PS
--- NOTE | 2025-11-03 07:46 | HMCIMG ---
EXAM: CT Chest Without IV contrast. CLINICAL HISTORY: Clinical workup TECHNIQUE: Axial computed tomography images of the chest without intravenous contrast. COMPARISON: None provided. FINDINGS: LUNGS: No pulmonary mass. Collapse of the right lower lobe was noted. A few fibrotic bands were noted in the left lower lobe. The rest of the lungs appear essentially clear. PLEURAL SPACES: No evidence of pneumothorax. A moderate amount of fluid in the right pleural cavity and a trace amount in the left pleural cavities noted. HEART: Mild cardiomegaly noted. No significant pericardial effusion. Status post tenotomy and coronary artery bypass. Atherosclerosis. LYMPH NODES: No lymphadenopathy is evident. UPPER ABDOMEN: The upper abdominal solid organs are unremarkable. BONES: No acute osseous abnormality. Diffuse subcutaneous edema noted. IMPRESSION: Moderate right and trace left pleural effusions. Collapse of the right lower lobe. Mild cardiomegaly. Status post tenotomy and coronary artery bypass. Atherosclerosis. /[place]
--- NOTE | 2025-11-03 10:44 | PN ---
SUBJECTIVE: The patient is a very pleasant 55-year-old diabetic female with ischemic rest pain, gangrenous necrosis, chronic osteomyelitis, left foot, receiving vancomycin and cefepime, nonoperable. Peripheral vascular disease affecting the anterior tibial artery on the left. The patient is agreeable to be evaluated for a [id number] amputation on the left and has been seen by the Surgery Service. Surgery is scheduled for Friday for [id number] amputation on the left side. The patient's evaluation of her circulation status by the Cardiology Service shows that she has very good blood supply that is adequate to heal a [id number] amputation level; however, complete total occlusion of the anterior tibial artery, not amenable to revascularization procedure, which will not allow any healing of the left foot. The patient is concerned of pain to the left foot. She remains afebrile, 98.1, pulse 72, respirations 18, blood pressure 97/64. The patient has white count 7.7, H and H 9.5 and 31.1, platelets 244. The patient is currently receiving IV vancomycin and IV cefepime. REVIEW OF SYSTEMS: EXTREMITIES: Pain to the left foot. HEENT: No problems with her eyes, ears, nose or throat. RESPIRATORY: No shortness of breath. GENITOURINARY: Shows BUN and creatinine level 22 and 0.9, glucose 113. INTEGUMENTARY: Dry gangrene to the stump of the left transmetatarsal amputation site, 12 x 9 cm. MUSCULOSKELETAL: She has transmetatarsal amputation on the left. OBJECTIVE: Her examination, she had a dry gangrene to the distal and dorsal left transmetatarsal amputation 9 x 12 cm. No abscess. No ascending cellulitis. The patient is afebrile. Her white count is within normal limits. ASSESSMENT: A 55-year-old diabetic female with non-operable peripheral vascular disease affecting the anterior tibial artery on the left, status post revascularization. Complete total occlusion of the anterior tibial artery noted. The patient with demarcating dry necrosis of the distal aspect of the flap of the transmetatarsal amputation on the left. The patient with claudication symptoms to the foot. The patient has been evaluated by the General Surgery Service. Recommendations have been made for [id number] amputation for which the patient is in agreement. PLAN: Plan is for the patient to proceed with a left lower extremity [id number] amputation on Friday with the General Surgery Service. The patient has an excellent potential to heal given the status of her circulation that has been verified by the Cardiology Service as adequate to heal at a [id number] amputation level. TID: [id number] RECEIPT: [id number]
--- NOTE | 2025-11-03 11:10 | PN ---
[facility] PROGRESS NOTE Date Patient Seen: Nov 03, 2025 Time of Visit: 11:09 Supervising Physician: [ ] Primary Care Physician: Dr. Ger Zhang Outpatient Specialists: [ ] Inpatient Consults: Dr. Cox,(podiatry), Dr Guanako Fry (gen surgery), Dr. Angel Ingram (cardiology) PROBLEM LIST: Acute hypoxic respiratory failure, likely from right-sided pleural effusion - resolved Acute diastolic CHF exacerbation,50-55%, stage III diastolic dysfunction Sepsis, multifactorial, likely from respiratory, genitourinary infection Acute complicated cystitis Right lung recurrent pleural effusion secondary congestive heart failure -Thoracentesis on 10/22/2025, 700ml drained by Dr. Rosalio Zhang -Thoracentesis scheduled IR on 11/04/25 DM type II, with hyperglycemia BEN, POA CHRONIC PROBLEM LIST: Left foot TMA 09/11 Osteomyelitis Hypertension Hyperlipidemia Diabetes mellitus type 2 Obesity, BMI of 35.5, History of CAD,CABG, 2023 History of PVD, left TMA 09/2025 INTERVAL HISTORY: 55-year-old female with past medical history of hypertension, hyperlipidemia, DM type 2, obesity, PVD, status post recent left TMA with Dr. Cox who [facility] for low oxygen saturation, and worsening shortness of breaths. Patient was seen and examined in ED with no relatives present at bedside. Apparently patient recently had left TMA last month, was sent to above-mentioned rehab for continued recovery and long-term antibiotic therapy. Today he started to have some shortness of breath with associated cough. She was sent to ER for further medical evaluation. Her symptoms are not associated with fever, cough with phlegm, chest pain, or confusion. On evaluation patient was found to have low oxygen saturation improved with administration of oxygen and IV Lasix. In ED stat chest x-ray was done and showed large right-sided pleural effusion, CBC showed mild leukocytosis with normocytic anemia , her chemistry significant for creatinine level of 1.7, BNP of more than 3000, initial lactic acid was normal, with normal procalcitonin level. Her COVID and flu tests were also negative. Patient has remote history of smoking, denies any alcohol intake, or illicit drug use. 10/30 - Patient seen an examined all labs reviewed. Patient resting in bed comfortably. Dressing to left lower extremity dry and intact. MRI results concerning for Osteomyelitis . Patient remains on room air with good saturations. Xray yesterday demonstrating increased effusion. Metolazone was added patient tolerated well with 2l output overnight Dr. Cox has reviewed finding with patient Patient leaning towards conservative management with IV ABX. 10/31 - patient is seen and evaluated at the bedside. Patient is sitting up in bed resting quietly continues to complain of pain to the left foot. Dressing is dry and intact. Patient continues on broad-spectrum antibiotics. Patient was re-evaluated by Dr. Cox and reports cardiology has no intervention to offer the patient to improve the occluded anterior tibial and dorsalis pedis artery left side. No further surgical recommendations given her complete total occlu sions of the left foot. Discussed these recommendations with the patient and she reports that occupational work experience teacher told her that everything was fine therefore she is somewhat confused. Patient reports she would like to speak to a occupational work experience teacher once again. Patient underwent peripheral angiogram and final impression reports adequate blood circulation to both of her feet. Recommendations were medical management. We will continue current antibiotic treatment as well as local wound care for now. MRI reports possible osteomyelitis. Vital signs are stable. Labs are within normal limits. 11/01-patient examined and seen while resting in bed head of the bed is elevated, accompanied by patient's bedside nurse, patient is awake alert and oriented and appears in no acute distress. Nursing staff reports no adverse events occurring overnight. Patient is has stable vital signs and afebrile. Discussed with patient verse LA results concerning for osteomyelitis left lower extremity. The approach so far has been consulted with antibiotics the wound is not healing on the left status post TMA my metatarsal digits three and five. Recommendations has been for very conservative approach. Patient is on it. Patient had concerns that maybe her blood flow was in his bed on her left lower leg. Patient discussed with me the options for possibility if surgery can be done to remove this infected part of her left lower leg in stable portion of her left leg reducing the risk of continuous osteomyelitis of the left lower extremity which has a poor blood flow. We will have Cardiology come and see the patient. We will follow up with other specialists has been consulted for the patient's care. Further orders per course of stay. A.m. labs ordered. 11/02-Seen and examined patient will resting in bed with head of bed elevated family members were present all were friendly and conversant, accompanied by patient's bedside nurse, as well as nursing staff reports no adverse events occurring overnight. Patient awake alert and oriented and appears in no acute distress. Reviewed discussed with patient and family members present vital signs, stable, laboratory results were reviewed and discussed, and the patient has indicated a willingness during this admission to have surgery some form of the amputation to her left lower extremity for the treatment of advanced diabetic ulcer on her left foot and osteomyelitis. Cardiology clinical workup is underway General surgery with tentative plans surgery for 11/04/2025. Clinical workup will include CT chest without contrast and ABG ordered for tomorrow morning to assess pulmonary function prior to surgery. After discussion family nor patient had questions or concerns. Further orders per course of stay. A.m. labs ordered 11/03-the patient was seen in the assess as well as examined resting on top of bed head of bed elevated friendly and conversant watching television. Patient is awake alert and oriented. Appears in no acute distress. Reviewed and discussed with patient 1st diagnostic tests results: CT chest to determine if patient would require thoracentesis for optimization prior to scheduled surgery for amputation of left lower leg secondary to osteomyelitis. Patient had thoracentesis on 10/22/2025 during this admission 700 mL of fluid was drained. Based upon CT chest results reviewed and discussed with supervising physician, Dr. Sudeep Early, patient ordered for thoracentesis to be performed in IR tomorrow. Patient will have heparin held this evening, NPO after midnight, labs for fluid have already been ordered. Reviewed and discussed with patient laboratory results, vital signs, labs to be ordered prior to tomorrow's procedure and surgery, and plan of care going forward. After discussion the patient had no questions or concerns. Laboratory studies were ordered for tomorrow including coagulation studies, heparin held, for anticoagulation therapy. PLAN: Supplemental oxygen as needed Continue cefepime Continue vancomycin Follow up with Dr. Cox's recommendations Surgery scheduled for 11/04/[address] Chest W/O Contrast, awaiting results AM labs & ABG Continue local wound care Continue to diurese patient Continue Strict I&Os Follow am labs REVIEW OF SYSTEMS: 12 point ROS reviewed with patient. Pertinent positives mentioned above. Otherwise negative. PHYSICAL EXAM: GENERAL: alert, weak, awake oriented x 3 HEENT: EOMI, Sclera non icteric, moist mucosa NECK: Supple, no JVD, trachea midline LUNGS: Diminished bilateral lower lobes HEART: Regular rate and rhythm. Normal S1 and S2, without murmurs ABD: Abdomen soft, nontender. Bowel sounds present EXT: No clubbing cyanosis or edema, left foot TMA NEURO: Alert and oriented to person, follows commands Vital Signs (last 8hr) Date Time Temp Pulse Resp B/P (MAP) Pulse Ox O2 Delivery O2 Flow Rate FiO2 11/03/25 11:00 86 18 11/03/25 11:00 86 18 N/Cannula Low lpm 2.0 11/03/25 08:00 98.1 88 18 90/56 99 Nasal Cannula 2.0 11/03/25 06:08 82 18 11/03/25 06:08 82 18 N/Cannula Low lpm 2.0 11/03/25 04:00 98.1 72 18 97/64 94 Nasal Cannula 2.0 LABS: Hematology Labs: Test 11/03/25 03:55 Range/Units White Blood Count 7.7 4.8-10.8 K/uL Red Blood Count 4.14 4.00-5.50 MIL/uL Hemoglobin 9.5 L 12.0-16.0 g/dL Hematocrit 31.1 L 36-48 % Mean Corpuscular Volume 75.1 L 79-99 fL Mean Corpuscular Hemoglobin 22.9 L 27.0-33.0 pg Mean Corpuscular Hemoglobin Concent 30.5 L 32.0-36.0 g/dL Red Cell Distribution Width 28.3 H 11.0-15.5 % Platelet Count 244 130-400 K/uL Mean Platelet Volume 7.5-10.5 fL Nucleated Red Blood Cells 0.0 0.0-0.19 % Red Blood Cell Morphology See comments Chemistry Labs: Test 11/03/25 10:52 11/03/25 03:55 11/02/25 04:00 Range/Units Whole Blood Glucose 177 #H 70-110 MG/DL Sodium Level 134 L 136-145 mmol/L Potassium Level 3.5 3.5-5.1 mmol/L Chloride Level 92 L 101-111 mmol/L Carbon Dioxide Level 39 H 21-32 mmol/L Blood Urea Nitrogen 22 H 7-18 mg/dL Creatinine 0.9 0.5-1.0 mg/dL Glomerular Filtration Rate Calc 76 >90 mL/min Random Glucose 112 H 70-105 mg/dL Total Calcium 8.3 L 8.5-10.1 mg/dL Magnesium Level 1.80 1.80-2.40 mg/dL Total Bilirubin 1.3 H 0.2-1.0 mg/dL Aspartate Amino Transf (AST/SGOT) 44 H 10-37 U/L Alanine Aminotransferase (ALT/SGPT) 39 12-78 U/L Alkaline Phosphatase 276 H 50-136 U/L Total Protein 6.0 6.0-8.3 g/dL Albumin 1.5 L 3.5-5.0 g/dL Lactic Acid Level 1.6 0.8-2.5 mmol/L Phosphorus Level 3.7 2.5-4.9 mg/dL Coagulation Labs: Test 11/02/25 04:00 Range/Units Prothrombin Time 12.2 H 9.6-11.6 SEC Prothromb Time International Ratio 1.17 H 0.85-1.15 Activated Partial Thromboplast Time 31.6 26.3-35.5 SEC DIAGNOSTICS / RADIOLOGY RESULTS: [ ] PLAN NEURO: Minimize central acting medications as possible. Maintain fall precautions, adequate lighting during the day PULMONARY: Supplemental 02 as needed. Maintain aspiration precautions at all times CARDIOVASCULAR: Follow hemodynamics. Vital signs per facility protocol GI & NUTRITION: Continue with nutritional support. Continue stool softeners and laxatives as needed. KIDNEYS & ELECTROLYTES: Strict monitoring of intake, output and overall fluid balance. Avoid nephrotoxic medications to the extent possible. Medications to be dosed according to renal function. Monitor electrolytes and replace as needed ENDOCRINE: Maintain blood glucose between 100-180 at all times. Hypoglycemia protocol in place INFECTIOUS DISEASE: Trend temperature, WBC and procalcitonin level Follow cultures, deescalate antibiotics as soon as possible. Panculture if new onset fever ONCOLOGY/HEMATOLOGY/COAGULATION: Monitor for s/s of bleeding Monitor hemoglobin, coagulation studies as needed SKIN: Pressure ulcer prevention per facility protocol Specialty mattress Wound care to left TMA ORTHO/REHAB: Continue PT/OT Prophylaxis: Continue GI and DVT prophylaxis Pantoprazole and Heparin Code Status: Full Resuscitation Disposition: Home vs SNF GEORGE ESPOSITO AGACNP Nov 03, 2025 11:10
--- NOTE | 2025-11-03 13:35 | PN ---
The patient is already prepared to have a left below-knee amputation tomorrow. She had a CT scan of the chest because of primary team would like to make sure she is cleared for the surgery tomorrow. I have discussed with the nurses and we will get the written consultation when she is okay to have the surgery tomorrow we will schedule left below-knee amputation in the morning Vitals/Labs Vital Signs Date Time Temp Pulse Resp B/P (MAP) Pulse Ox O2 Delivery O2 Flow Rate FiO2 11/03/25 12:53 97.9 87 18 96/58 99 Room Air 11/03/25 11:00 2.0 11/03/25 08:20 21 Laboratory Tests 11/03/25 03:55 JAMIR MCLEAN MD Nov 03, 2025 13:35
[2025-11-03] MEDS ORDERED: VANCOMYCIN 1G/250ML KIT 250 ML IV SCH (14:00)
[2025-11-04] VITALS (32 sets, daily range): BP systolic 90–128; BP diastolic 50–80; PULSE 80–99; RESP 14–20; TEMP 97.1–98.5; O2SAT 98–100
[2025-11-04 03:54] LABS: NUCLEATED RED BLOOD CELLS 0.0 % (0.0-0.19); PLATELET COUNT (AUTO) 242 K/uL (130-400); RED BLOOD CELL COUNT(AUTO) 4.03 MIL/uL (4.00-5.50); RED CELL DISTRIBUTION WIDTH 28.0 % (11.0-15.5); WHITE BLOOD COUNT (AUTO) 6.9 K/uL (4.8-10.8)
[2025-11-04 04:05] LABS: INR 1.03 (0.85-1.15)
[2025-11-04 04:17] LABS: ASPARTATE AMINOTRANSFERASE 36.0 U/L (10-37); CREATININE 0.9 mg/dL (0.5-1.0); GLOMERULAR FILTR. RATE CALC 76.0 mL/min (>90); GLUCOSE,RANDOM 129.0 mg/dL (70-105); SODIUM SERUM 135.0 mmol/L (136-145); TOTAL PROTEIN, SERUM 6.1 g/dL (6.0-8.3); UREA NITROGEN, BLOOD 20.0 mg/dL (7-18)
[2025-11-04] MEDS ORDERED: LIDOCAINE PF 100MG/5ML (2%) SYRINGE 5ML ONE (09:38)
--- NOTE | 2025-11-04 11:14 | EKG ---
[facility] Test Date: 2025-11-04 Test Time: 10:13:36 Pat Name: NAS SALCIDO Department: [facility] Room: 331 1 Gender: F Lens Blocker: [id number] : 1970 Requested By: LEV YEPEZ Order Number: [id number] Reading MD: Sia Mann Measurements Intervals [place] Rate: 83 P: 39 ME: 130 QRS: -24 QRSD: 83 T: 14 QT: 368 QTc: 434 Interpretive Statements Sinus rhythm Probable left atrial enlargement Inferior infarct, old Compared to ECG 10/18/2025 17:22:40 Myocardial infarct finding now present Electronically Signed On 11-07-2025 08:54:30 SOUND MIXER by Sia Mann Please click the below link to view image of tracing.
[2025-11-04] MEDS ORDERED: SUCCINYLCHOLINE CHLORIDE 20 MG/ML 10 ML VIAL ONE (12:04)
[2025-11-04] MEDS ORDERED: PROMETHAZINE HCL 25 MG/ML 1ML AMPULE IM PRN (13:30)
[2025-11-04] MEDS ORDERED: GLYCOPYRROLATE 0.2 MG/ML 5 ML VIAL ONE (13:34)
[2025-11-04] MEDS ORDERED: NEOSTIGMINE METHYLSULFATE 1MG/ML IV ONE (13:34)
[2025-11-04] MEDS ORDERED: VANCOMYCIN 1G/250ML KIT 250 ML IV SCH (14:00)
--- NOTE | 2025-11-04 14:29 | OP ---
Operative Note: DATE OF PROCEDURE: 11/04/25 SURGEON: JAMIR MCLEAN MD MOBILE MECHANIC: [] ANESTHESIA: [] General ANESTHESIOLOGIST/SENIOR INSTRUCTOR: [] PREOPERATIVE DIAGNOSIS: [] Left foot gangrene POSTOPERATIVE DIAGNOSIS: [] The same SYNOPSIS: [] PROCEDURE: [] Left below-knee amputation ESTIMATED BLOOD LOSS: [] 100 cc INDICATIONS: [] DESCRIPTION OF PROCEDURE: [] With the patient prepped in the usual fashion we marked the left leg just about5 in below the kneecap and marked a posterior flap. After making skin incisions I used the cautery in order to divide all muscles. Muscles were divided in expose the tibia and the fibula. The tibia was cleaned with a periosteal elevation and then was transected with a saw. With the same thing with the fibula. We identified the neurovascular package in with a divided individually the artery pains in the nerves and secured with a 2-0 silk tie. After this was done we continue doing the dissection with cautery in order to remove the left lower leg. After adequate anesthesia I approximated the muscle with a 2-0 Vicryl interrupted figure eights in several layers. The fascia was also approximated with the Vicryl and the skin was closed with staplers. We placed a compression dressing around the left stump. Procedure was completed without complication JAMIR MCLEAN MD Nov 04, 2025 14:29
[2025-11-04] MEDS: VANCOMYCIN 1.75 GM/250 ML BAG 250 ML IV SCH (16:40)
--- NOTE | 2025-11-04 21:19 | PN ---
[facility] PROGRESS NOTE Date Patient Seen: Nov 04, 2025 Time of Visit: 21:18 Supervising Physician: Dr. Justo George Primary Care Physician: Dr. Ger Zhang Outpatient Specialists: [ ] Inpatient Consults: Dr. Cox,(podiatry), Dr Guanako Fry (gen surgery), Dr. Angel Ingram (cardiology) PROBLEM LIST: Acute hypoxic respiratory failure, likely from right-sided pleural effusion - resolved Acute diastolic CHF exacerbation,50-55%, stage III diastolic dysfunction Sepsis, multifactorial, likely from respiratory, genitourinary infection Acute complicated cystitis Left foot gangrene s/p Left [id number] amputation on 11/04/[address] Mat Fry Right lung recurrent pleural effusion secondary congestive heart failure -Thoracentesis on 10/22/2025, 700ml drained by Dr. Rosalio Zhang -Thoracentesis scheduled IR on 11/07/25 tentative DM type II, with hyperglycemia BEN, POA CHRONIC PROBLEM LIST: Left foot TMA 09/11 Osteomyelitis Hypertension Hyperlipidemia Diabetes mellitus type 2 Obesity, BMI of 35.5, History of CAD,CABG, 2023 History of PVD, left TMA 09/2025 INTERVAL HISTORY: 55-year-old female with past medical history of hypertension, hyperlipidemia, DM type 2, obesity, PVD, status post recent left TMA with Dr. Cox who presented to [facility] here for evaluation for low oxygen saturation, and worsening shortness of breaths. Patient was seen and examined in ED with no relatives present at bedside. Apparently patient recently had left TMA last month, was sent to above-mentioned rehab for continued recovery and long-term antibiotic therapy. Today he started to have some shortness of breath with associated cough. She was sent to ER for further medical evaluation. Her symptoms are not associated with fever, cough with phlegm, chest pain, or confusion. On evaluation patient was found to have low oxygen saturation improved with administration of oxygen and IV Lasix. In ED stat chest x-ray was done and showed large right-sided pleural effusion, CBC showed mild leukocytosis with normocytic anemia , her chemistry significant for creatinine level of 1.7, BNP of more than 3000, initial lactic acid was normal, with normal procalcitonin level. Her COVID and flu tests were also negative. Patient has remote history of smoking, denies any alcohol intake, or illicit drug use. 10/30 - Patient seen an examined all labs reviewed. Patient resting in bed comfortably. Dressing to left lower extremity dry and intact. MRI results concerning for Osteomyelitis . Patient remains on room air with good saturations. Xray yesterday demonstrating increased effusion. Metolazone was added patient tolerated well with 2l output overnight Dr. Cox has reviewed finding with patient Patient leaning towards conservative management with IV ABX. 10/31 - patient is seen and evaluated at the bedside. Patient is sitting up in bed resting quietly continues to complain of pain to the left foot. Dressing is dry and intact. Patient continues on broad-spectrum antibiotics. Patient was r e-evaluated by Dr. Cox and reports cardiology has no intervention to offer the patient to improve the occluded anterior tibial and dorsalis pedis artery left side. No further surgical recommendations given her complete total occlusions of the left foot. Discussed these recommendations with the patient and she reports that caustic operator told her that everything was fine therefore she is somewhat confused. Patient reports she would like to speak to a caustic operator once again. Patient underwent peripheral angiogram and final impression reports adequate blood circulation to both of her feet. Recommendations were medical management. We will continue current antibiotic treatment as well as local wound care for now. MRI reports possible osteomyelitis. Vital signs are stable. Labs are within normal limits. 11/01-patient examined and seen while resting in bed head of the bed is esra vated, accompanied by patient's bedside nurse, patient is awake alert and oriented and appears in no acute distress. Nursing staff reports no adverse events occurring overnight. Patient is has stable vital signs and afebrile. Discussed with patient verse SC results concerning for osteomyelitis left lower extremity. The approach so far has been consulted with antibiotics the wound is not healing on the left status post TMA my metatarsal digits three and five. Recommendations has been for very conservative approach. Patient is on it. Patient had concerns that maybe her blood flow was in his bed on her left lower leg. Patient discussed with me the options for possibility if surgery can be done to remove this infected part of her left lower leg in stable portion of her left leg reducing the risk of continuous osteomyelitis of the left lower extremity which has a poor blood flow. We will have Cardiology come and see the patient. We will follow up with other specialists has been consulted for the patient's care. Further orders per course of stay. A.m. labs ordered. 11/02-Seen and examined patient will resting in bed with head of bed elevated family members were present all were friendly and conversant, accompanied by patient's bedside nurse, as well as nursing staff reports no adverse events occurring overnight. Patient awake alert and oriented and appears in no acute distress. Reviewed discussed with patient and family members present vital signs, stable, laboratory results were reviewed and discussed, and the patient has indicated a willingness during this admission to have surgery some form of the amputation to her left lower extremity for the treatment of advanced diabetic ulcer on her left foot and osteomyelitis. Cardiology clinical workup is underway General surgery with tentative plans surgery for 11/04/2025. Clinical workup will include CT chest without contrast and ABG ordered for tomorrow morning to assess pulmonary function prior to surgery. After discussion family nor patient had questions or concerns. Further orders per course of stay. A.m. labs ordered 11/03-the patient was seen in the assess as well as examined resting on top of bed head of bed elevated friendly and conversant watching television. Patient is awake alert and oriented. Appears in no acute distress. Reviewed and discussed with patient 1st diagnostic tests results: CT chest to determine if patient would require thoracentesis for optimization prior to scheduled surgery for amputation of left lower leg secondary to osteomyelitis. Patient had thoracentesis on 10/22/2025 during this admission 700 mL of fluid was drained. Based upon CT chest results reviewed and discussed with supervising physician, Dr. Sudeep Earyl, patient ordered for thoracentesis to be performed in IR tomorrow. Patient will have heparin held this evening, NPO after midnight, labs for fluid have already been ordered. Reviewed and discussed with patient laboratory results, vital signs, labs to be ordered prior to tomorrow's procedure and surgery, and plan of care going forward. After discussion the patient had no questions or concerns. Laboratory studies were ordered for tomorrow including coagulation studies, heparin held, for anticoagulation therapy. 11/04-Patient assessed and seen resting in bed, family members present, awake alert and oriented. Patient is status post left [id number] amputation today for gangrene of the left foot. Patient tolerated the procedure. Reviewed and discussed procedure laboratory results, vital signs medications being used for treatment as well as pain medications. Discussed with patient we will dressing her fluid volume overload as evidenced by right large pleural effusion through diuretics checking chest x-rays and if it is still large on 11/07/25 then patient will have a thoracentesis performed in Interventional Radiology. After discussion no other questions or concerns. Further orders per course of stay. A.m. labs ordered PLAN: Supplemental oxygen as needed Antibiotics continue to follow recommendations of Infectious Disease specialists Follow up with Dr. Cox's recommendations s/p surgery Continue local wound care Continue to diurese patient Continue Strict I&Os Follow am labs REVIEW OF SYSTEMS: 12 point ROS reviewed with patient. Pertinent positives mentioned above. Otherwise negative. PHYSICAL EXAM: GENERAL: alert, weak, awake oriented x 3 HEENT: EOMI, Sclera non icteric, moist mucosa NECK: Supple, no JVD, trachea midline LUNGS: Diminished bilateral lower lobes HEART: Regular rate and rhythm. Normal S1 and S2, without murmurs ABD: Abdomen soft, nontender. Bowel sounds present EXT: No clubbing cyanosis or edema, left foot TMA NEURO: Alert and oriented to person, follows commands Vital Signs (last 8hr) Date Time Temp Pulse Resp B/P (MAP) Pulse Ox O2 Delivery O2 Flow Rate FiO2 11/04/25 20:00 97.5 94 16 124/73 97 Room Air 11/04/25 18:34 91 20 11/04/25 18:33 91 18 N/Cannula Low lpm 2.0 28 11/04/25 17:30 85 20 121/76 100 Nasal Cannula 2.0 11/04/25 17:00 85 20 121/72 100 Nasal Cannula 2.0 11/04/25 16:30 87 20 112/68 100 Nasal Cannula 2.0 11/04/25 16:15 80 20 111/64 99 Nasal Cannula 2.0 11/04/25 16:00 97.9 83 20 111/64 98 Nasal Cannula 2.0 11/04/25 16:00 85 20 114/65 97 Nasal Cannula 2.0 11/04/25 15:45 89 20 111/63 98 Nasal Cannula 2.0 11/04/25 15:30 91 20 109/80 98 Nasal Cannula 2.0 11/04/25 14:58 97.5 90 17 116/66 96 Nasal Cannula 2.0 11/04/25 14:53 91 15 116/65 95 Nasal Cannula 2.0 11/04/25 14:48 92 14 118/66 96 Nasal Cannula 2.0 11/04/25 14:43 93 16 121/67 95 Nasal Cannula 2.0 11/04/25 14:38 93 15 119/68 95 Nasal Cannula 2.0 11/04/25 14:33 94 15 122/67 95 Nasal Cannula 2.0 11/04/25 14:28 94 18 115/66 96 Nasal Cannula 2.0 11/04/25 14:23 94 17 119/69 100 Nonrebreathing Mask 100 11/04/25 14:18 95 16 122/71 100 Nonrebreathing Mask 100 11/04/25 14:13 97.2 99 15 119/73 100 Nonrebreathing Mask 100 LABS: Hematology Labs: Test 11/04/25 03:40 11/03/25 03:55 Range/Units White Blood Count 6.9 4.8-10.8 K/uL Red Blood Count 4.03 4.00-5.50 MIL/uL Hemoglobin 9.3 L 12.0-16.0 g/dL Hematocrit 31.1 L 36-48 % Mean Corpuscular Volume 77.2 L 79-99 fL Mean Corpuscular Hemoglobin 23.1 L 27.0-33.0 pg Mean Corpuscular Hemoglobin Concent 29.9 L 32.0-36.0 g/dL Red Cell Distribution Width 28.0 H 11.0-15.5 % Platelet Count 242 130-400 K/uL Mean Platelet Volume 7.5-10.5 fL Nucleated Red Blood Cells 0.0 0.0-0.19 % Red Blood Cell Morphology See comments Chemistry Labs: Test 11/04/25 19:58 11/04/25 03:40 Range/Units Whole Blood Glucose 123 H 70-110 MG/DL Sodium Level 135 L 136-145 mmol/L Potassium Level 3.2 L 3.5-5.1 mmol/L Chloride Level 95 L 101-111 mmol/L Carbon Dioxide Level 38 H 21-32 mmol/L Blood Urea Nitrogen 20 H 7-18 mg/dL Creatinine 0.9 0.5-1.0 mg/dL Glomerular Filtration Rate Calc 76 >90 mL/min Random Glucose 129 H 70-105 mg/dL Total Calcium 8.4 L 8.5-10.1 mg/dL Magnesium Level 2.00 1.80-2.40 mg/dL Total Bilirubin 1.1 H 0.2-1.0 mg/dL Aspartate Amino Transf (AST/SGOT) 36 10-37 U/L Alanine Aminotransferase (ALT/SGPT) 34 12-78 U/L Alkaline Phosphatase 277 H 50-136 U/L Total Protein 6.1 6.0-8.3 g/dL Albumin 1.5 L 3.5-5.0 g/dL Coagulation Labs: Test 11/04/25 03:40 Range/Units Prothrombin Time 10.9 9.6-11.6 SEC Prothromb Time International Ratio 1.03 0.85-1.15 Activated Partial Thromboplast Time 26.2 L 26.3-35.5 SEC DIAGNOSTICS / RADIOLOGY RESULTS: [ ] PLAN NEURO: Minimize central acting medications as possible. Maintain fall precautions, adequate lighting during the day PULMONARY: Supplemental 02 as needed. Maintain aspiration precautions at all times CARDIOVASCULAR: Follow hemodynamics. Vital signs per facility protocol GI & NUTRITION: Continue with nutritional support. Continue stool softeners and laxatives as needed. KIDNEYS & ELECTROLYTES: Strict monitoring of intake, output and overall fluid balance. Avoid nephrotoxic medications to the extent possible. Medications to be dosed according to renal function. Monitor electrolytes and replace as needed ENDOCRINE: Maintain blood glucose between 100-180 at all times. Hypoglycemia protocol in place INFECTIOUS DISEASE: Trend temperature, WBC and procalcitonin level Follow cultures, deescalate antibiotics as soon as possible. Panculture if new onset fever ONCOLOGY/HEMATOLOGY/COAGULATION: Monitor for s/s of bleeding Monitor hemoglobin, coagulation studies as needed SKIN: Pressure ulcer prevention per facility protocol Specialty mattress Wound care to left TMA ORTHO/REHAB: Continue PT/OT Prophylaxis: Continue GI and DVT prophylaxis Pantoprazole and Heparin Code Status: Full Resuscitation Disposition: Home vs SNF GEORGE ESPOSITO AGACNP Nov 04, 2025 21:18
--- NOTE | 2025-11-04 21:40 | NUR ---
MEDS SHIFT ASSESSMENT DONE, PLEASE REFER TO CHART. DUE MEDS ADMINISTERED, TOLERATED WELL. KEPT RESTED AND COMFORTABLE IN BED. CALL LIGHT WITHIN REACH. FAMILY AT BEDSIDE.
[2025-11-05] VITALS (12 sets, daily range): BP systolic 92–132; BP diastolic 54–82; PULSE 81–99; RESP 18–20; TEMP 97.6–98.4; O2SAT 92–99
[2025-11-05] MEDS: VANCOMYCIN 1G/250ML KIT 250 ML IV SCH (04:54)
[2025-11-05 05:24] LABS: NUCLEATED RED BLOOD CELLS 0.0 % (0.0-0.19); PLATELET COUNT (AUTO) 254.0 K/uL (130-400); RED BLOOD CELL COUNT(AUTO) 3.94 MIL/uL (4.00-5.50); RED CELL DISTRIBUTION WIDTH 27.8 % (11.0-15.5); WHITE BLOOD COUNT (AUTO) 12.2 K/uL (4.8-10.8)
[2025-11-05 06:04] LABS: ASPARTATE AMINOTRANSFERASE 41.0 U/L (10-37); CREATININE 0.9 mg/dL (0.5-1.0); GLOMERULAR FILTR. RATE CALC 76.0 mL/min (>90); GLUCOSE,RANDOM 118.0 mg/dL (70-105); SODIUM SERUM 133.0 mmol/L (136-145); TOTAL PROTEIN, SERUM 6.3 g/dL (6.0-8.3); UREA NITROGEN, BLOOD 16.0 mg/dL (7-18)
--- NOTE | 2025-11-05 06:16 | NUR ---
PAIN PT CLAIMS OF POST OP PAINS. MEDICATED WITH TORADOL IV. RE-POSITIONED COMFORTABLY IN BED. CALL LIGHT WITHIN REACH. WILL RE-ASSESS PT. FAMILY AT BEDSIDE.
--- NOTE | 2025-11-05 08:50 | PN ---
Postop day one after left BKA. The patient is doing very well. Tolerating diet. Hemoglobin stable. White count slightly elevated. No significant pain. The patient should be seen by Physical therapy. We will continue with current management and we will we will get the wound in two days. Vitals/Labs Vital Signs Date Time Temp Pulse Resp B/P (MAP) Pulse Ox O2 Delivery O2 Flow Rate FiO2 11/05/25 06:47 93 18 N/Cannula Low lpm 2.0 28 11/05/25 04:00 98.4 113/63 99 Laboratory Tests 11/05/25 05:12 JAMIR MCLEAN MD Nov 05, 2025 08:50
--- NOTE | 2025-11-05 19:30 | PN ---
[facility] PROGRESS NOTE Date Patient Seen: Nov 05, 2025 Time of Visit: 19:30 Supervising Physician: Dr. Justo George Primary Care Physician: Dr. Ger Zhang Outpatient Specialists: [ ] Inpatient Consults: Dr. Cox,(podiatry), Dr Guanako Fry (gen surgery), Dr. Angel Ingram (cardiology) PROBLEM LIST: Left foot gangrene s/p Left [id number] amputation on 11/04/[address] Mat Fry Acute hypoxic respiratory failure, likely from right-sided pleural effusion - resolved Acute diastolic CHF exacerbation,50-55%, stage III diastolic dysfunction Sepsis, multifactorial, likely from respiratory, genitourinary infection Right lung recurrent pleural effusion secondary congestive heart failure -Thoracentesis on 10/22/2025, 700ml drained by Dr. Rosalio Zhang -Thoracentesis scheduled IR on 11/07/25 tentative DM type II, with hyperglycemia BEN, POA CHRONIC PROBLEM LIST: Left foot TMA 09/11 Osteomyelitis Hypertension Hyperlipidemia Diabetes mellitus type 2 Obesity, BMI of 35.5, History of CAD,CABG, 2023 History of PVD, left TMA 09/2025 INTERVAL HISTORY: 55-year-old female with past medical history of hypertension, hyperlipidemia, DM type 2, obesity, PVD, status post recent left TMA with Dr. Cox who presented to [facility] here for evaluation for low oxygen saturation, and worsening shortness of breaths. Patient was seen and examined in ED with no relatives present at bedside. Apparently patient recently had left TMA last month, was sent to above-mentioned rehab for continued recovery and long-term antibiotic therapy. Today he started to have some shortness of breath with associated cough. She was sent to ER for further medical evaluation. Her symptoms are not associated with fever, cough with phlegm, chest pain, or confusion. On evaluation patient was found to have low oxygen saturation improved with administration of oxygen and IV Lasix. In ED stat chest x-ray was done and showed large right-sided pleural effusion, CBC showed mild leukocytosis with normocytic anemia , her chemistry significant for creatinine level of 1.7, BNP of more than 3000, initial lactic acid was normal, with normal procalcitonin level. Her COVID and flu tests were also negative. Patient has remote history of smoking, denies any alcohol intake, or illicit drug use. 10/30 - Patient seen an examined all labs reviewed. Patient resting in bed comfortably. Dressing to left lower extremity dry and intact. MRI results concerning for Osteomyelitis . Patient remains on room air with good saturations. Xray yesterday demonstrating increased effusion. Metolazone was added patient tolerated well with 2l output overnight Dr. Cox has reviewed finding with patient Patient leaning towards conservative management with IV ABX. 10/31 - patient is seen and evaluated at the bedside. Patient is sitting up in bed resting quietly continues to complain of pain to the left foot. Dressing is dry and intact. Patient continues on broad-spectrum antibiotics. Patient was re-evaluated by Dr. Cox and reports cardiology has no intervention to offer the patient to improve the occluded anterior tibial and dorsalis pedis artery left side. No further surgical recommendations given her complete total occlusions of the left foot. Discussed these recommendations with the patient and she reports that on site soil evaluator told her that everything was fine therefore she is somewhat confused. Patient reports she would like to speak to a on site soil evaluator once again. Patient underwent peripheral angiogram and final impression reports adequate blood circulation to both of her feet. Recommendations were medical management. We will continue current antibiotic treatment as well as local wound care for now. MRI reports possible osteomyelitis. Vital signs are stable. Labs are within normal limits. 11/01-patient examined and seen while resting in bed head of the bed is elevated, accompanied by patient's bedside nurse, patient is awake alert and oriented and appears in no acute distress. Nursing staff reports no adverse events occurring overnight. Patient is has stable vital signs and afebrile. Discussed with patient verse [place] results concerning for osteomyelitis left lower extremity. The approach so far has been consulted with antibiotics the wound is not healing on the left status post TMA my metatarsal digits three and five. Recommendations has been for very conservative approach. Patient is on it. Patient had concerns that maybe her blood flow was in his bed on her left lower leg. Patient discussed with me the options for possibility if surgery can be done to remove this infected part of her left lower leg in stable portion of her left leg reducing the risk of continuous osteomyelitis of the left lower extremity which has a poor blood flow. We will have Cardiology come and see the patient. We will follow up with other specialists has been consulted for the patient's care. Further orders per course of stay. A.m. labs ordered. 11/02-Seen and examined patient will resting in bed with head of bed elevated family members were present all were friendly and conversant, accompanied by patient's bedside nurse, as well as nursing staff reports no adverse events occurring overnight. Patient awake alert and oriented and appears in no acute distress. Reviewed discussed with patient and family members present vital signs, stable, laboratory results were reviewed and discussed, and the patient has indicated a willingness during this admission to have surgery some form of the amputation to her left lower extremity for the treatment of advanced diabetic ulcer on her left foot and osteomyelitis. Cardiology clinical workup is underway General surgery with tentative plans surgery for 11/04/2025. Clinical workup will include CT chest without contrast and ABG ordered for tomorrow morning to assess pulmonary function prior to surgery. After discussion family nor patient had questions or concerns. Further orders per course of stay. A.m. labs ordered 11/03-the patient was seen in the assess as well as examined resting on top of bed head of bed elevated friendly and conversant watching television. Patient is awake alert and oriented. Appears in no acute distress. Reviewed and discussed with patient 1st diagnostic tests results: CT chest to determine if david montiel would require thoracentesis for optimization prior to scheduled surgery for amputation of left lower leg secondary to osteomyelitis. Patient had thoracentesis on 10/22/2025 during this admission 700 mL of fluid was drained. Based upon CT chest results reviewed and discussed with supervising physician, Dr. Sudeep Early, patient ordered for thoracentesis to be performed in IR tomorrow. Patient will have heparin held this evening, NPO after midnight, labs for fluid have already been ordered. Reviewed and discussed with patient laboratory results, vital signs, labs to be ordered prior to tomorrow's procedure and surgery, and plan of care going forward. After discussion the patient had no questions or concerns. Laboratory studies were ordered for christiano orrow including coagulation studies, heparin held, for anticoagulation therapy. 11/04-Patient assessed and seen resting in bed, family members present, awake alert and oriented. Patient is status post left [id number] amputation today for gangrene of the left foot. Patient tolerated the procedure. Reviewed and discussed procedure laboratory results, vital signs medications being used for treatment as well as pain medications. Discussed with patient we will dressing her fluid volume overload as evidenced by right large pleural effusion through diuretics checking chest x-rays and if it is still large on 11/07/25 then patient will have a thoracentesis performed in Interventional Radiology. After discussion no other questions or concerns. Further orders per course of stay. A.m. labs ordered 11/05-examined resting in bed harbor bed is elevated left side pulse helical l eft knee, patient is awake alert and appears in no acute distress per family members relieving the time of my assessment. Discussed with family members inpatient laboratory results, vital signs, discussed postop day one, diagnostic tests and plan. We will order an x-ray for Friday morning if patient still has right large lower lobe pleural effusion patient will scheduled in IR to have thoracentesis labs for fluid are already ordered. We will continue diuretics to try to offload fluid prior chest x-ray early a.m. tomorrow. We will continue current medication treatment plan for patient. After discussing there were no further questions or concerns. Further orders per course of stay. A.m. labs ordered. PLAN: Supplemental oxygen as needed Antibiotics continue to follow recommendations of Infectious Disease specialists Follow up with Dr. Cox's recommendations s/p surgery Continue local wound care Continue to diurese patient Continue Strict I&Os Follow am labs REVIEW OF SYSTEMS: 12 point ROS reviewed with patient. Pertinent positives mentioned above. Otherwise negative. PHYSICAL EXAM: GENERAL: alert, weak, awake oriented x 3 HEENT: EOMI, Sclera non icteric, moist mucosa NECK: Supple, no JVD, trachea midline LUNGS: Diminished bilateral lower lobes HEART: Regular rate and rhythm. Normal S1 and S2, without murmurs ABD: Abdomen soft, nontender. Bowel sounds present EXT: No clubbing cyanosis or edema, left foot TMA NEURO: Alert and oriented to person, follows commands Vital Signs (last 8hr) Date Time Temp Pulse Resp B/P (MAP) Pulse Ox O2 Delivery O2 Flow Rate FiO2 11/05/25 19:08 85 18 N/A Room Air 21 11/05/25 19:08 85 20 11/05/25 16:00 97.9 91 20 100/56 94 Room Air 11/05/25 12:00 97.7 88 20 103/64 100 Room Air LABS: Hematology Labs: Test 11/05/25 05:12 Range/Units White Blood Count 12.2 H 4.8-10.8 K/uL Red Blood Count 3.94 L 4.00-5.50 MIL/uL Hemoglobin 9.1 L 12.0-16.0 g/dL Hematocrit 31.1 L 36-48 % Mean Corpuscular Volume 78.9 L 79-99 fL Mean Corpuscular Hemoglobin 23.1 L 27.0-33.0 pg Mean Corpuscular Hemoglobin Concent 29.3 L 32.0-36.0 g/dL Red Cell Distribution Width 27.8 H 11.0-15.5 % Platelet Count 254 130-400 K/uL Mean Platelet Volume 10.7 H 7.5-10.5 fL Nucleated Red Blood Cells 0.0 0.0-0.19 % Chemistry Labs: Test 11/05/25 15:35 11/05/25 05:12 Range/Units Whole Blood Glucose 170 H 70-110 MG/DL Sodium Level 133 L 136-145 mmol/L Potassium Level 4.0 3.5-5.1 mmol/L Chloride Level 95 L 101-111 mmol/L Carbon Dioxide Level 35 H 21-32 mmol/L Blood Urea Nitrogen 16 7-18 mg/dL Creatinine 0.9 0.5-1.0 mg/dL Glomerular Filtration Rate Calc 76 >90 mL/min Random Glucose 118 H 70-105 mg/dL Total Calcium 8.1 L 8.5-10.1 mg/dL Magnesium Level 1.80 1.80-2.40 mg/dL Total Bilirubin 1.4 H 0.2-1.0 mg/dL Aspartate Amino Transf (AST/SGOT) 41 H 10-37 U/L Alanine Aminotransferase (ALT/SGPT) 32 12-78 U/L Alkaline Phosphatase 285 H 50-136 U/L Total Protein 6.3 6.0-8.3 g/dL Albumin 1.6 L 3.5-5.0 g/dL Coagulation Labs: Test 11/04/25 03:40 Range/Units Prothrombin Time 10.9 9.6-11.6 SEC Prothromb Time International Ratio 1.03 0.85-1.15 Activated Partial Thromboplast Time 26.2 L 26.3-35.5 SEC DIAGNOSTICS / RADIOLOGY RESULTS: [ ] PLAN NEURO: Minimize central acting medications as possible. Maintain fall precautions, adequate lighting during the day PULMONARY: Supplemental 02 as needed. Maintain aspiration precautions at all times CARDIOVASCULAR: Follow hemodynamics. Vital signs per facility protocol GI & NUTRITION: Continue with nutritional support. Continue stool softeners and laxatives as needed. KIDNEYS & ELECTROLYTES: Strict monitoring of intake, output and overall fluid balance. Avoid nephrotoxic medications to the extent possible. Medications to be dosed according to renal function. Monitor electrolytes and replace as needed ENDOCRINE: Maintain blood glucose between 100-180 at all times. Hypoglycemia protocol in place INFECTIOUS DISEASE: Trend temperature, WBC and procalcitonin level Follow cultures, deescalate antibiotics as soon as possible. Panculture if new onset fever ONCOLOGY/HEMATOLOGY/COAGULATION: Monitor for s/s of bleeding Monitor hemoglobin, coagulation studies as needed SKIN: Pressure ulcer prevention per facility protocol Specialty mattress Wound care to left TMA ORTHO/REHAB: Continue PT/OT Prophylaxis: Continue GI and DVT prophylaxis Pantoprazole and Heparin Code Status: Full Resuscitation Disposition: Home vs SNF [facility] Nov 05, 2025 19:30
[2025-11-06] VITALS (13 sets, daily range): BP systolic 79–104; BP diastolic 44–69; PULSE 85–100; RESP 18–20; TEMP 97.4–98.1; O2SAT 93–97
[2025-11-06 04:37] LABS: NUCLEATED RED BLOOD CELLS 0.0 % (0.0-0.19); PLATELET COUNT (AUTO) 252.0 K/uL (130-400); RED BLOOD CELL COUNT(AUTO) 3.82 MIL/uL (4.00-5.50); RED CELL DISTRIBUTION WIDTH 28.3 % (11.0-15.5); WHITE BLOOD COUNT (AUTO) 10.7 K/uL (4.8-10.8)
[2025-11-06 05:03] LABS: ASPARTATE AMINOTRANSFERASE 39.0 U/L (10-37); CREATININE 1.3 mg/dL (0.5-1.0); GLOMERULAR FILTR. RATE CALC 49.0 mL/min (>90); GLUCOSE,RANDOM 121.0 mg/dL (70-105); SODIUM SERUM 133.0 mmol/L (136-145); TOTAL PROTEIN, SERUM 6.3 g/dL (6.0-8.3); UREA NITROGEN, BLOOD 25.0 mg/dL (7-18)
[2025-11-06 05:17] LABS: VANCOMYCIN LEVEL 37.7 mcg/mL (20.0-30.0)
--- NOTE | 2025-11-06 11:13 | PN ---
[facility] PROGRESS NOTE Date Patient Seen: Nov 06, 2025 Time of Visit: 11:13 Supervising Physician: Dr. Justo George Primary Care Physician: Dr. Ger Zhang Outpatient Specialists: [ ] Inpatient Consults: Dr. Cox,(podiatry), Dr Guanako Fry (gen surgery), Dr. Angel Ingram (cardiology) PROBLEM LIST: Left foot gangrene s/p Left [id number] amputation on 11/04/[address] Mat Fry Acute hypoxic respiratory failure, likely from right-sided pleural effusion - resolved Acute diastolic CHF exacerbation,50-55%, stage III diastolic dysfunction Sepsis, multifactorial, likely from respiratory, genitourinary infection Right lung recurrent pleural effusion secondary congestive heart failure -Thoracentesis on 10/22/2025, 700ml drained by Dr. Rosalio Zhang -Thoracentesis scheduled IR on 11/07/25 tentative Ototoxicity symptoms DM type II, with hyperglycemia BEN, POA CHRONIC PROBLEM LIST: Left foot TMA 09/11 Osteomyelitis Hypertension Hyperlipidemia Diabetes mellitus type 2 Obesity, BMI of 35.5, History of CAD,CABG, 2023 History of PVD, left TMA 09/2025 INTERVAL HISTORY: 55-year-old female with past medical history of hypertension, hyperlipidemia, DM type 2, obesity, PVD, status post recent left TMA with Dr. Cox who [facility] for low oxygen saturation, and worsening shortness of breaths. Patient was seen and examined in ED with no relatives present at bedside. Apparently patient recently had left TMA last month, was sent to above-mentioned rehab for continued recovery and long-term antibiotic therapy. Today he started to have some shortness of breath with associated cough. She was sent to ER for further medical evaluation. Her symptoms are not associated with fever, cough with phlegm, chest pain, or confusion. On evaluation patient was found to have low oxygen saturation improved with administration of oxygen and IV Lasix. In ED stat chest x-ray was done and showed large right-sided pleural effusion, CBC showed mild leukocytosis with normocytic anemia , her chemistry significant for creatinine level of 1.7, BNP of more than 3000, initial lactic acid was normal, with normal procalcitonin level. Her COVID and flu tests were also negative. Patient has remote history of smoking, denies any alcohol intake, or illicit drug use. 10/30 - Patient seen an examined all labs reviewed. Patient resting in bed comfortably. Dressing to left lower extremity dry and intact. MRI results concerning for Osteomyelitis . Patient remains on room air with good saturations. Xray yesterday demonstrating increased effusion. Metolazone was added patient tolerated well with 2l output overnight Dr. Cox has reviewed finding with patient Patient leaning towards conservative management with IV ABX. 10/31 - patient is seen and evaluated at the bedside. Patient is sitting up in bed resting quietly continues to complain of pain to the left foot. Dressing is dry and intact. Patient continues on broad-spectrum antibiotics. Patient was re-evaluated by Dr. Cox and reports cardiology has no intervention to offer the patient to improve the occluded anterior tibial and dorsalis pedis artery left side. No further surgical recommendations given her complete total occlusions of the left foot. Discussed these recommendations with the patient and she reports that hot blaster told her that everything was fine therefore she is somewhat confused. Patient reports she would like to speak to a hot blaster once again. Patient underwent peripheral angiogram and final impression reports adequate blood circulation to both of her feet. Recommendations were medical management. We will continue current antibiotic treatment as well as local wound care for now. MRI reports possible osteomyelitis. Vital signs are stable. Labs are within normal limits. 11/01-patient examined and seen while resting in bed head of the bed is elevated, accompanied by patient's bedside nurse, patient is awake alert and oriented and appears in no acute distress. Nursing staff reports no adverse events occurring overnight. Patient is has stable vital signs and afebrile. Discussed with patient verse WI results concerning for osteomyelitis left lower extremity. The approach so far has been consulted with antibiotics the wound is not healing on the left status post TMA my metatarsal digits three and five. Recommendations has been for very conservative approach. Patient is on it. Patient had concerns that maybe her blood flow was in his bed on her left lower leg. Patient discussed with me the options for possibility if surgery can be done to remove this infected part of her left lower leg in stable portion of her left leg reducing the risk of continuous osteomyelitis of the left lower extremity which has a poor blood flow. We will have Cardiology come and see the patient. We will follow up with other specialists has been consulted for the patient's care. Further orders per course of stay. A.m. labs ordered. 11/02-Seen and examined patient will resting in bed with head of bed elevated family members were present all were friendly and conversant, accompanied by patient's bedside nurse, as well as nursing staff reports no adverse events occurring overnight. Patient awake alert and oriented and appears in no acute distress. Reviewed discussed with patient and family members present vital signs, stable, laboratory results were reviewed and discussed, and the patient has indicated a willingness during this admission to have surgery some form of the amputation to her left lower extremity for the treatment of advanced diabetic ulcer on her left foot and osteomyelitis. Cardiology clinical workup is underway General surgery with tentative plans surgery for 11/04/2025. Clinical workup will include CT chest without contrast and ABG ordered for tomorrow morning to assess pulmonary function prior to surgery. After discussion family nor patient had questions or concerns. Further orders per course of stay. A.m. labs ordered 11/03-the patient was seen in the assess as well as examined resting on top of bed head of bed elevated friendly and conversant watching television. Patient is awake alert and oriented. Appears in no acute distress. Reviewed and discussed with patient 1st diagnostic tests results: CT chest to determine if patient would require thoracentesis for optimization prior to scheduled surgery for amputation of left lower leg secondary to osteomyelitis. Patient had thoracentesis on 10/22/2025 during this admission 700 mL of fluid was drained. Based upon CT chest results reviewed and discussed with supervising physician, Dr. Sudeep Earyl, patient ordered for thoracentesis to be performed in IR tomorrow. Patient will have heparin held this evening, NPO after midnight, labs for fluid have already been ordered. Reviewed and discussed with patient laboratory results, vital signs, labs to be ordered prior to tomorrow's proced ure and surgery, and plan of care going forward. After discussion the patient had no questions or concerns. Laboratory studies were ordered for tomorrow including coagulation studies, heparin held, for anticoagulation therapy. 11/04-Patient assessed and seen resting in bed, family members present, awake alert and oriented. Patient is status post left [id number] amputation today for gangrene of the left foot. Patient tolerated the procedure. Reviewed and discussed procedure laboratory results, vital signs medications being used for treatment as well as pain medications. Discussed with patient we will dressing her fluid volume overload as evidenced by right large pleural effusion through diuretics checking chest x-rays and if it is still large on 11/07/25 then patient will have a thoracentesis performed in Interventional Radiology. After discussion no other questions or concerns. Further orders per course of stay. A.m. labs ordered 11/05-examined resting in bed harbor bed is elevated left side pulse helical left knee, patient is awake alert and appears in no acute distress per family members relieving the time of my assessment. Discussed with family members inpatient laboratory results, vital signs, discussed postop day one, diagnostic tests and plan. We will order an x-ray for Friday morning if patient still has right large lower lobe pleural effusion patient will scheduled in IR to have thoracentesis labs for fluid are already ordered. We will continue diuretics to try to offload fluid prior chest x-ray early a.m. tomorrow. We will continue current medication treatment plan for patient. After discussing there were no further questions or concerns. Further orders per course of stay. A.m. labs ordered. 11/06-patient is seen resting in bed in a high Leigh's position head of the bed is elevated left lower extremity is elevated pillow status host a left lower e xtremity stump is wrapped in Gautam wrap helical halls. Patient is awake alert and oriented. Vital signs stable, blood pressure trending down, afebrile, on room air. Patient's blood pressure trending down patient has been diaphoresis anticipation of thoracentesis on Friday secondary to congestive heart failure, resulting in right large pleural effusions last time thoracentesis was on 10/22/2025 where 700 mL of fluid was removed. Patient's complaint today ototoxicity symptoms started recent. Assessment reports hearing feels muffled greater and right than left. Patient has had an elevated vancomycin trough this week. White blood cell count is 9.1, no real need for the patient to be on vancomycin, this medication will be discontinued. Patient is on Lasix 40 mg IV q.8 hours for daily total of 120. This medication can also cause these symptoms. Lasix we will be adjusted to 20 mg IV b.i.d. changes made today, immediately. We will reassess the patient's shortly ordering a.m. labs tomorrow with chest x-ray to determine if patient will need thoracentesis. After discussing no no other questions or concerns. Further orders per course of stay. PLAN: Supplemental oxygen as needed Antibiotics continue to follow recommendations of Infectious Disease specialists Follow up with Dr. Cox's recommendations s/p surgery Continue local wound care Continue to diurese patient Continue Strict I&Os Follow am labs REVIEW OF SYSTEMS: 12 point ROS reviewed with patient. Pertinent positives mentioned above. Otherwise negative. PHYSICAL EXAM: GENERAL: alert, weak, awake oriented x 3 HEENT: EOMI, Sclera non icteric, moist mucosa NECK: Supple, no JVD, trachea midline LUNGS: Diminished bilateral lower lobes HEART: Regular rate and rhythm. Normal S1 and S2, without murmurs ABD: Abdomen soft, nontender. Bowel sounds present EXT: No clubbing cyanosis or edema, left foot TMA NEURO: Alert and oriented to person, follows commands Vital Signs (last 8hr) Date Time Temp Pulse Resp B/P (MAP) Pulse Ox O2 Delivery O2 Flow Rate FiO2 11/06/25 08:00 98.1 95 20 98/61 97 Room Air 11/06/25 05:21 87 20 11/06/25 04:00 98.1 88 20 91/54 96 Room Air LABS: Hematology Labs: Test 11/06/25 04:28 Range/Units White Blood Count 10.7 4.8-10.8 K/uL Red Blood Count 3.82 L 4.00-5.50 MIL/uL Hemoglobin 8.9 L 12.0-16.0 g/dL Hematocrit 30.2 L 36-48 % Mean Corpuscular Volume 79.1 79-99 fL Mean Corpuscular Hemoglobin 23.3 L 27.0-33.0 pg Mean Corpuscular Hemoglobin Concent 29.5 L 32.0-36.0 g/dL Red Cell Distribution Width 28.3 H 11.0-15.5 % Platelet Count 252 130-400 K/uL Mean Platelet Volume 10.8 H 7.5-10.5 fL Nucleated Red Blood Cells 0.0 0.0-0.19 % Chemistry Labs: Test 11/06/25 05:38 11/06/25 04:28 Range/Units Whole Blood Glucose 128 H 70-110 MG/DL Sodium Level 133 L 136-145 mmol/L Potassium Level 3.9 3.5-5.1 mmol/L Chloride Level 95 L 101-111 mmol/L Carbon Dioxide Level 34 H 21-32 mmol/L Blood Urea Nitrogen 25 H 7-18 mg/dL Creatinine 1.3 H 0.5-1.0 mg/dL Glomerular Filtration Rate Calc 49 >90 mL/min Random Glucose 121 H 70-105 mg/dL Total Calcium 7.8 L 8.5-10.1 mg/dL Magnesium Level 2.10 1.80-2.40 mg/dL Total Bilirubin 1.1 #H 0.2-1.0 mg/dL Aspartate Amino Transf (AST/SGOT) 39 H 10-37 U/L Alanine Aminotransferase (ALT/SGPT) 27 12-78 U/L Alkaline Phosphatase 317 H 50-136 U/L Total Protein 6.3 6.0-8.3 g/dL Albumin 1.5 L 3.5-5.0 g/dL DIAGNOSTICS / RADIOLOGY RESULTS: [ ] PLAN NEURO: Minimize central acting medications as possible. Maintain fall precautions, adequate lighting during the day PULMONARY: Supplemental 02 as needed. Maintain aspiration precautions at all times CARDIOVASCULAR: Follow hemodynamics. Vital signs per facility protocol GI & NUTRITION: Continue with nutritional support. Continue stool softeners and laxatives as needed. KIDNEYS & ELECTROLYTES: Strict monitoring of intake, output and overall fluid balance. Avoid nephrotoxic medications to the extent possible. Medications to be dosed according to renal function. Monitor electrolytes and replace as needed ENDOCRINE: Maintain blood glucose between 100-180 at all times. Hypoglycemia protocol in place INFECTIOUS DISEASE: Trend temperature, WBC and procalcitonin level Follow cultures, deescalate antibiotics as soon as possible. Panculture if new onset fever ONCOLOGY/HEMATOLOGY/COAGULATION: Monitor for s/s of bleeding Monitor hemoglobin, coagulation studies as needed SKIN: Pressure ulcer prevention per facility protocol Specialty mattress Wound care to left TMA ORTHO/REHAB: Continue PT/OT Prophylaxis: Continue GI and DVT prophylaxis Pantoprazole and Heparin Code Status: Full Resuscitation Disposition: Home vs SNF [facility] Nov 06, 2025 11:13
--- NOTE | 2025-11-06 16:45 | PN ---
Postop day two of the left below-knee amputation. The patient has been hemodynamically stable. White count is normal hemoglobin stable. We have seen the wound today and looks cleaned in very good. The patient has started with a physical therapy consultation. At this point from our point of view patient could be discharged when considered appropriate by the primary team and we will see him in a couple of weeks to remove the nataly. Vitals/Labs Vital Signs Date Time Temp Pulse Resp B/P (MAP) Pulse Ox O2 Delivery O2 Flow Rate FiO2 11/06/25 16:00 97.3 93 20 96/65 94 Room Air 11/06/25 12:40 21 11/06/25 08:00 0 Laboratory Tests 11/06/25 04:28 JAMIR MCLEAN MD Nov 06, 2025 16:45
[2025-11-07] VITALS (12 sets, daily range): BP systolic 84–123; BP diastolic 48–71; PULSE 60–101; RESP 17–18; TEMP 97.8–98.2; O2SAT 94–98
--- NOTE | 2025-11-07 00:04 | NUR ---
DIURETICS DIURETIC LASIX HELD AT THIS TIME DUE TO LOW BLOOD PRESSURE OF 92/50. PATIENT IS ALERT AND ORIENTED X 3 AND DID REFUSED LASIX AT THIS TIME DUE TO LOW BLOOD PRESSURE.
[2025-11-07 04:07] LABS: NUCLEATED RED BLOOD CELLS 0.0 % (0.0-0.19); PLATELET COUNT (AUTO) 249.0 K/uL (130-400); RED BLOOD CELL COUNT(AUTO) 3.75 MIL/uL (4.00-5.50); RED CELL DISTRIBUTION WIDTH 27.0 % (11.0-15.5); WHITE BLOOD COUNT (AUTO) 9.8 K/uL (4.8-10.8)
[2025-11-07 05:33] LABS: INR 1.09 (0.85-1.15)
--- NOTE | 2025-11-07 13:22 | PN ---
[facility] PROGRESS NOTE Date Patient Seen: Nov 07, 2025 Time of Visit: 13:22 Supervising Physician: Dr. Ramu Hoff Primary Care Physician: Dr. Savanah Zhang Outpatient Specialists: [ ] Inpatient Consults: Dr. Cox,(podiatry), Dr Guanako Fry (gen surgery), Dr. Angel Ingram (cardiology) PROBLEM LIST: Left foot gangrene s/p Left [id number] amputation on 11/04/[address] Mat Fry Acute hypoxic respiratory failure, likely from right-sided pleural effusion - resolved Acute diastolic CHF exacerbation,50-55%, stage III diastolic dysfunction Sepsis, multifactorial, likely from respiratory, genitourinary infection Right lung recurrent pleural effusion secondary congestive heart failure -Thoracentesis on 10/22/2025, 700ml drained by Dr. Rosalio Zhang -Thoracentesis scheduled IR on 11/07/25 tentative Ototoxicity symptoms DM type II, with hyperglycemia BEN, POA CHRONIC PROBLEM LIST: Left foot TMA 09/11 Osteomyelitis Hypertension Hyperlipidemia Diabetes mellitus type 2 Obesity, BMI of 35.5, History of CAD,CABG, 2023 History of PVD, left TMA 09/2025 INTERVAL HISTORY: 55-year-old female with past medical history of hypertension, h yperlipidemia, DM type 2, obesity, PVD, status post recent left TMA with Dr. Cox who [facility] for low oxygen saturation, and worsening shortness of breaths. Patient was seen and examined in ED with no relatives present at bedside. Apparently patient recently had left TMA last month, was sent to above-mentioned rehab for continued recovery and long-term antibiotic therapy. Today he started to have some shortness of breath with associated cough. She was sent to ER for further medical evaluation. Her symptoms are not associated with fever, cough with phlegm, chest pain, or confusion. On evaluation patient was found to have low oxygen saturation improved with administration of oxygen and IV Lasix. In ED stat chest x-ray was done and showed large right-sided pleural effusion, CBC showed mild leukocytosis with normocytic anemia , her chemistry significant for creatinine level of 1.7, BNP of more than 3000, initial lactic acid was norm al, with normal procalcitonin level. Her COVID and flu tests were also negative. Patient has remote history of smoking, denies any alcohol intake, or illicit drug use. 10/30 - Patient seen an examined all labs reviewed. Patient resting in bed comfortably. Dressing to left lower extremity dry and intact. MRI results concerning for Osteomyelitis . Patient remains on room air with good saturations. Xray yesterday demonstrating increased effusion. Metolazone was added patient tolerated well with 2l output overnight Dr. Cox has reviewed finding with patient Patient leaning towards conservative management with IV ABX. 10/31 - patient is seen and evaluated at the bedside. Patient is sitting up in bed resting quietly continues to complain of pain to the left foot. Dressing is dry and intact. Patient continues on broad-spectrum antibiotics. Patient was re-evaluated by Dr. Cox and reports cardiology has no intervention to offer the patient to improve the occluded anterior tibial and dorsalis pedis artery left side. No further surgical recommendations given her complete total occlusions of the left foot. Discussed these recommendations with the patient and she reports that senior java data architect told her that everything was fine therefore she is somewhat confused. Patient reports she would like to speak to a senior java data architect once again. Patient underwent peripheral angiogram and final impression reports adequate blood circulation to both of her feet. Recommendations were medical management. We will continue current antibiotic treatment as well as local wound care for now. MRI reports possible osteomyelitis. Vital signs are stable. Labs are within normal limits. 11/01-patient examined and seen while resting in bed head of the bed is elevated, accompanied by patient's bedside nurse, patient is awake alert and oriented and appears in no acute distress. Nursing staff reports no adverse events occurring overnight. Patient is has stable vital signs and afebrile. Discussed with patient verse [place] results concerning for osteomyelitis left lower extremity. The approach so far has been consulted with antibiotics the wound is not healing on the left status post TMA my metatarsal digits three and five. Recommendations has been for very conservative approach. Patient is on it. Patient had concerns that maybe her blood flow was in his bed on her left lower leg. Patient discussed with me the options for possibility if surgery can be done to remove this infected part of her left lower leg in stable portion of her left leg reducing the risk of continuous osteomyelitis of the left lower extremity which has a poor blood flow. We will have Cardiology come and see the patient. We will follow up with other specialists has been consulted for the patient's care. Further orders per course of stay. A.m. labs ordered. 11/02-Seen and examined patient will resting in bed with head of bed elevated family members were present all were friendly and conversant, accompanied by patient's bedside nurse, as well as nursing staff reports no adverse events occurring overnight. Patient awake alert and oriented and appears in no acute distress. Reviewed discussed with patient and family members present vital signs, stable, laboratory results were reviewed and discussed, and the patient has indicated a willingness during this admission to have surgery some form of the amputation to her left lower extremity for the treatment of advanced diabetic ulcer on her left foot and osteomyelitis. Cardiology clinical workup is underway General surgery with tentative plans surgery for 11/04/2025. Clinical workup will include CT chest without contrast and ABG ordered for tomorrow morning to assess pulmonary function prior to surgery. After discussion family nor patient had questions or concerns. Further orders per course of stay. A.m. labs ordered 11/03-the patient was seen in the assess as well as examined resting on top of bed head of bed elevated friendly and conversant watching television. Patient is awake alert and oriented. Appears in no acute distress. Reviewed and discussed with patient 1st diagnostic tests results: CT chest to determine if patient would require thoracentesis for optimization prior to scheduled surgery for amputation of left lower leg secondary to osteomyelitis. Patient had thoracentesis on 10/22/2025 during this admission 700 mL of fluid was drained. Based upon CT chest results reviewed and discussed with supervising physician, Dr. Sudeep Early, patient ordered for thoracentesis to be performed in IR tomorrow. Patient will have heparin held this evening, NPO after midnight, labs for fluid have already been ordered. Reviewed and discussed with patient laboratory results, vital signs, labs to be ordered prior to tomorrow's procedure and surgery, and plan of care going forward. After discussion the patient had no questions or concerns. Laboratory studies were ordered for tomorrow including coagulation studies, heparin held, for anticoagulation therapy. 11/04-Patient assessed and seen resting in bed, family members present, awake alert and oriented. Patient is status post left [id number] amputation today for gangrene of the left foot. Patient tolerated the procedure. Reviewed and discussed procedure laboratory results, vital signs medications being used for treatment as well as pain medications. Discussed with patient we will dressing her fluid volume overload as evidenced by right large pleural effusion through diuretics checking chest x-rays and if it is still large on 11/07/25 then patient will have a thoracentesis performed in Interventional Radiology. After discussion no other questions or concerns. Further orders per course of stay. A.m. labs ordered 11/05-examined resting in bed harbor bed is elevated left side pulse helical left knee, patient is awake alert and appears in no acute distress per family members relieving the time of my assessment. Discussed with family members inpatient laboratory results, vital signs, discussed postop day one, diagnostic tests and plan. We will order an x-ray for Friday morning if patient still has right large lower lobe pleural effusion patient will scheduled in IR to have thoracentesis labs for fluid are already ordered. We will continue diuretics to try to offload fluid prior chest x-ray early a.m. tomorrow. We will continue current medication treatment plan for patient. After discussing there were no further questions or concerns. Further orders per course of stay. A.m. labs ordered. 11/06-patient is seen resting in bed in a high Leigh's position head of the bed is elevated left lower extremity is elevated pillow status host a left lower extremity stump is wrapped in Gautam wrap helical halls. Patient is awake alert and oriented. Vital signs stable, blood pressure trending down, afebrile, on room air. Patient's blood pressure trending down patient has been diaphoresis anticipation of thoracentesis on Friday secondary to congestive heart failure, resulting in right large pleural effusions last time thoracentesis was on 12/23/2024 where 700 mL of fluid was removed. Patient's complaint today ototoxicity symptoms started recent. Assessment reports hearing feels muffled greater and right than left. Patient has had an elevated vancomycin trough this week. White blood cell count is 9.1, no real need for the patient to be on vancomycin, this medication will be discontinued. Patient is on Lasix 40 mg IV q.8 hours for daily total of 120. This medication can also cause these symptoms. Lasix we will be adjusted to 20 mg IV b.i.d. changes made today, immediately. We will reassess the patient's shortly ordering a.m. labs tomorrow with chest x-ray to determine if patient will need thoracentesis. After discussing no no other questions or concerns. Further orders per course of st ay. 11/07-patient is assessed, examined during my assessment accompanied by patient's bedside nurse, patient is awake alert and oriented and nursing staff reports no adverse events occurring overnight. Patient's vital signs were stable with the patient being afebrile. Patient is still says he has muffled hearing sound occurring more in the right ear than left ear. Intervention Lasix we will be discontinued. Suspect ototoxicity symptoms associated with medication Lasix, previous day vancomycin has been discontinued. Patient reports the improvement blood muffled sound came back and then went away. Awaiting patient to have thoracentesis right lung s/p prior thoracentesis 700 mL of fluid was removed, labs has been ordered pending fluid to be removed proce dure performed in IR. This is results from patient's heart failure. Case management assisting with discharge planning patient will be an excellent candidate for rehab services at a detention facility status post left BKA secondary to osteomyelitis complicated by poor blood flow to the left lower extremity. Patient has tolerated procedure this is postop day three. Follow r ecommendations of General surgery in PT. Further orders per course of stay. PLAN: Supplemental oxygen as needed Antibiotics continue to follow recommendations of Infectious Disease specialists Follow up with Dr. Cox's recommendations s/p surgery Continue local wound care Continue to diurese patient Continue Strict I&Os Follow am labs REVIEW OF SYSTEMS: 12 point ROS reviewed with patient. Pertinent positives mentioned above. Otherwise negative. PHYSICAL EXAM: GENERAL: alert, weak, awake oriented x 3 HEENT: EOMI, Sclera non icteric, moist mucosa NECK: Supple, no JVD, trachea midline LUNGS: Diminished bilateral lower lobes HEART: Regular rate and rhythm. Normal S1 and S2, without murmurs ABD: Abdomen soft, nontender. Bowel sounds present EXT: No clubbing cyanosis or edema, left foot TMA NEURO: Alert and oriented to person, follows commands Vital Signs (last 8hr) Date Time Temp Pulse Resp B/P (MAP) Pulse Ox O2 Delivery O2 Flow Rate FiO2 11/07/25 11:21 98.1 84 18 100/65 95 Room Air 11/07/25 08:03 97.9 83 18 84/48 94 Room Air 11/07/25 07:30 94 Room Air* 0 21 LABS: Hematology Labs: Test 11/07/25 03:50 Range/Units White Blood Count 9.8 4.8-10.8 K/uL Red Blood Count 3.75 L 4.00-5.50 MIL/uL Hemoglobin 8.7 L 12.0-16.0 g/dL Hematocrit 29.3 L 36-48 % Mean Corpuscular Volume 78.1 L 79-99 fL Mean Corpuscular Hemoglobin 23.2 L 27.0-33.0 pg Mean Corpuscular Hemoglobin Concent 29.7 L 32.0-36.0 g/dL Red Cell Distribution Width 27.0 H 11.0-15.5 % Platelet Count 249 130-400 K/uL Mean Platelet Volume 11.1 H 7.5-10.5 fL Nucleated Red Blood Cells 0.0 0.0-0.19 % Chemistry Labs: Test 11/07/25 10:59 11/06/25 04:28 Range/Units Whole Blood Glucose 118 H 70-110 MG/DL Sodium Level 133 L 136-145 mmol/L Potassium Level 3.9 3.5-5.1 mmol/L Chloride Level 95 L 101-111 mmol/L Carbon Dioxide Level 34 H 21-32 mmol/L Blood Urea Nitrogen 25 H 7-18 mg/dL Creatinine 1.3 H 0.5-1.0 mg/dL Glomerular Filtration Rate Calc 49 >90 mL/min Random Glucose 121 H 70-105 mg/dL Total Calcium 7.8 L 8.5-10.1 mg/dL Magnesium Level 2.10 1.80-2.40 mg/dL Total Bilirubin 1.1 #H 0.2-1.0 mg/dL Aspartate Amino Transf (AST/SGOT) 39 H 10-37 U/L Alanine Aminotransferase (ALT/SGPT) 27 12-78 U/L Alkaline Phosphatase 317 H 50-136 U/L Total Protein 6.3 6.0-8.3 g/dL Albumin 1.5 L 3.5-5.0 g/dL Coagulation Labs: Test 11/07/25 05:10 Range/Units Prothrombin Time 11.5 9.6-11.6 SEC Prothromb Time International Ratio 1.09 0.85-1.15 Activated Partial Thromboplast Time 30.0 26.3-35.5 SEC DIAGNOSTICS / RADIOLOGY RESULTS: [ ] PLAN NEURO: Minimize central acting medications as possible. Maintain fall precautions, adequate lighting during the day PULMONARY: Supplemental 02 as needed. Maintain aspiration precautions at all times CARDIOVASCULAR: Follow hemodynamics. Vital signs per facility protocol GI & NUTRITION: Continue with nutritional support. Continue stool softeners and laxatives as needed. KIDNEYS & ELECTROLYTES: Strict monitoring of intake, output and overall fluid balance. Avoid nephrotoxic medications to the extent possible. Medications to be dosed according to renal function. Monitor electrolytes and replace as needed ENDOCRINE: Maintain blood glucose between 100-180 at all times. Hypoglycemia protocol in place INFECTIOUS DISEASE: Trend temperature, WBC and procalcitonin level Follow cultures, deescalate antibiotics as soon as possible. Panculture if new onset fever ONCOLOGY/HEMATOLOGY/COAGULATION: Monitor for s/s of bleeding Monitor hemoglobin, coagulation studies as needed SKIN: Pressure ulcer prevention per facility protocol Specialty mattress Wound care to left TMA ORTHO/REHAB: Continue PT/OT Prophylaxis: Continue GI and DVT prophylaxis Pantoprazole and Heparin Code Status: Full Resuscitation Disposition: Home vs SNF GEORGE ESPOSITO AGACN Nov 07, 2025 13:22
[2025-11-07] MEDS ORDERED: LIDOCAINE HCL 1% 20 ML VIAL ONE (15:31)
--- NOTE | 2025-11-07 15:38 | HMCIMG ---
Ultrasound-guided left thoracentesis 11/07/2025 3:06 PM PERIOPERATIVE ASSISTANT CLINICAL HISTORY: pl right FINDINGS: Initial sonographic imaging demonstrates a moderate amount of fluid within the posterior and inferior aspect of the left chest. Utilizing sterile technique, following local anesthesia, a needle is placed within this pleural fluid collection via the posterior percutaneous approach. A catheter is advanced over the needle into the fluid collection, with the needle removed. A total volume of 500 mL of manda cloudy fluid is removed. A fluid specimen is sent for laboratory analysis. Sonographic imaging at the end of the procedure demonstrates reduction in the amount of pleural fluid. The catheter is removed at the end of the procedure. The patient tolerated the procedure well, with no complications. IMPRESSION: Ultrasound-guided left thoracentesis yields a total volume of 500 mL of manda cloudy fluid, as described above. Patient is to have follow-up chest radiograph.
--- NOTE | 2025-11-07 15:41 | HMCIMG ---
CHEST 1VW REASON: post rt thoracentesis COMPARISON: Prior chest radiograph from 11/02/2025 is available. FINDINGS: Single view of the chest was obtained. There is small to moderate right-sided pleural effusion which is decreased as prior study. There is no pneumothorax. The remaining lung rizo are clear.. There is cardiomegaly with median sternotomy. There is a right-sided catheter with tip in the right axillary region.. There is no pulmonary vascular congestion. Mediastinum and bony thorax appear unremarkable. IMPRESSION: 1 no pneumothorax post thoracentesis 2. Cardiomegaly with median sternotomy 3. There is small to moderate residual right-sided pleural effusion.
--- NOTE | 2025-11-07 15:45 | NUR ---
U/S GD RT THORACENTESIS PERFORMED BY DR Esperanza DE JESUS. TOLERATED PROCEDURE. PUNCTURE SITE TO RT UPPER BACK. 0.5 LITERS OF YELLOW CLEAR FLUID REMOVED AND SENT TO LAB. END OF PROCEDURE AT 1525. POST CHEST X RAY READ BY DR Esperanza DE JESUS NO PNEUMOTHORAX SEEN. REPORT GIVEN TO JO-ANN STEVE. DRESSING DRY AND INTACT. NO BLEEDING NOTED. TRANSPORTED TO [facility] VIA BED. A&O. DENIES PAIN.
--- NOTE | 2025-11-07 16:03 | NUR ---
POST OP PATIENT ARRIVED TO UNIT WITH NO COMPLAINTS. PATIENTS CURRENT VITALS ARE 123/71, 94 WA, 98% RA, AND 98.1 TEMP. PATIENT SITTING COMFORTABLY IN BED AT THIS TIME.
[2025-11-07 18:03] LABS: GLUCOSE PLEURAL FLUID 132; PROTEIN PLEURAL FLUID < 2.0 mg/dL
[2025-11-07 18:28] LABS: BODY FLUID RBC 16 /cu. mm.; BODY FLUID WBC 107 /cu. mm.
[2025-11-07 18:33] LABS: APPEARANCE BODY FLUID SLIGHTLY CLOUDY (CLEAR); COLOR,BODY FLUID LT YELLOW (LT YELLOW); SPECIMENTYPE,BODY FLUID PLEURAL; TOTAL VOLUME,BODY FLUID 500 mL
[2025-11-07 18:34] LABS: PH PLEURAL FLUID 7
[2025-11-07 18:42] LABS: BF LYMPHOCYTE 20 %; BF MACROPHAGE 33; BF MESOTHELIAL 3 %; BF MONOCYTE 9 %; BF NEUTROPHIL 35.0 %; BF TOTAL CELLS COUNTED 100
[2025-11-08] VITALS (11 sets, daily range): BP systolic 94–111; BP diastolic 58–70; PULSE 68–98; RESP 16–20; TEMP 97.7–98.2; O2SAT 94–99
[2025-11-08 04:42] LABS: NUCLEATED RED BLOOD CELLS 0.0 % (0.0-0.19); PLATELET COUNT (AUTO) 246.0 K/uL (130-400); RED BLOOD CELL COUNT(AUTO) 3.78 MIL/uL (4.00-5.50); RED CELL DISTRIBUTION WIDTH 27.3 % (11.0-15.5); WHITE BLOOD COUNT (AUTO) 8.9 K/uL (4.8-10.8)
[2025-11-08 04:47] LABS: INR 1.06 (0.85-1.15)
[2025-11-08 04:55] LABS: ASPARTATE AMINOTRANSFERASE 32.0 U/L (10-37); CREATININE 2.1 mg/dL (0.5-1.0); GLOMERULAR FILTR. RATE CALC 27.0 mL/min (>90); GLUCOSE,RANDOM 98.0 mg/dL (70-105); SODIUM SERUM 131.0 mmol/L (136-145); TOTAL PROTEIN, SERUM 6.4 g/dL (6.0-8.3); UREA NITROGEN, BLOOD 42.0 mg/dL (7-18)
--- NOTE | 2025-11-08 10:49 | HMCIMG ---
EXAM: CR Chest, 1 View. CLINICAL HISTORY: Comparison to the previous COMPARISON: Chest radiograph dated 11/07/2025 FINDINGS: A right axillary line is noted. LUNGS: Interval increase in the right moderate pleural effusion with adjacent compressive atelectasis. PLEURAL SPACES: No pneumothorax. MEDIASTINUM: Stable mild cardiomegaly with pulmonary vascular congestion. Median sternotomy wires noted. BONES: No acute osseous abnormality. IMPRESSION: 1. Interval increase in right moderate pleural effusion with adjacent compressive atelectasis. 2. Stable mild cardiomegaly with pulmonary vascular congestion. /[place]
--- NOTE | 2025-11-08 10:50 | NUR ---
PROVIDER GOLDIE ANDERSON AT BEDSIDE. SIGNED OFF. Addendum: 11/08/25 at 1054 by JAMES MEJIA LVN LVN FROM SURGERY [facility]
--- NOTE | 2025-11-08 14:45 | NUR ---
[facility] Consult: Patient assessed by wound healing team. See wound assessment. Assessment and recommendations provided to primary nurse. Education provided to patient. Dressing to [facility] dated from 10-18, dressing removed with resolved surgical wound noted.
--- NOTE | 2025-11-08 15:00 | NUR ---
MBSS COMPLETED. No aspiration/no penetrations. MAY WANT TO CONSIDER UPPER GI and/or GI consult to further evaluate esophageal function due to globus sensation. RECOMMEND: regular solids, thin liquids and pills whole with liquids as tolerated COMPENSATORY STRATEGIES: 1. sit upright during oral intake NOTES: Pt was evaluated at bedside due to globus sensation and was within functional limits. However, nurse Ynes sent another order due to patient continuing with globus sensation. MBSS was recommended instead of bedside to further evaluate pharyngeal function. However, during study, patient continued to report burning sensation and pointed in upper esophageal. Pt may need upper GI and/or GI consult to further evaluate esophageal function and globus sensation. PATIENT ALLERGIC TO [place]; MIXED TEXTURES NOT ASSESSED AT THIS TIME DIAGNOSTIC FINDINGS: Oropharyngeal swallowing is within functional limits. No penetrations or aspiration observed. Pt with mild pharyngeal residue cleared with re-swallows. Otherwise, exam was negative for etiology of patients c/o globus sensation/choking with oral intake. FISHER MUSSEL reviewed results and recommendations with patient and nurse Quick. FISHER MUSSEL educated patient on risks and consequences of aspiration. Speech therapy not warranted at this time. All questions answered. Addendum: 11/08/[address] ALCIRA MILLAN Amended: Links added.
--- NOTE | 2025-11-08 15:14 | PN ---
[facility] PROGRESS NOTE Date Patient Seen: Nov 08, 2025 Time of Visit: 1239 Supervising Physician: Dr. Hoff Primary Care Physician: Dr. Savanah Zhang Outpatient Specialists: [ ] Inpatient Consults: Dr. Cox,(podiatry), Dr Guanako Fry (gen surgery), Dr. Angel Ingram (cardiology) PROBLEM LIST: Left foot gangrene s/p Left [id number] amputation on 11/04/[address] Mat Fry Acute hypoxic respiratory failure, likely from right-sided pleural effusion - resolved Acute diastolic CHF exacerbation,50-55%, stage III diastolic dysfunction Sepsis, multifactorial, likely from respiratory, genitourinary infection Right lung recurrent pleural effusion secondary congestive heart failure -Thoracentesis on 10/22/2025, 700ml drained by Dr. Rosalio Zhang -Thoracentesis by IR on 11/07/25 500 ml removed Ototoxicity symptoms DM type II, with hyperglycemia BEN, POA CHRONIC PROBLEM LIST: Left foot TMA 09/11 Osteomyelitis Hypertension Hyperlipidemia Diabetes mellitus type 2 Obesity, BMI of 35.5, History of CAD,CABG, 2023 History of PVD, left TMA 09/2025 INTERVAL HISTORY: 55-year-old female with past medical history of hypertension, hyperlipidemia, DM type 2, obesity, PVD, status post recent left TMA with Dr. Cox who [facility] for low oxygen saturation, and worsening shortness of breaths. Patient was seen and examined in ED with no relatives present at bedside. Apparently patient recently had left TMA last month, was sent to above-mentioned rehab for continued recovery and long-term antibiotic therapy. Today he started to have some shortness of breath with associated cough. She was sent to ER for further medical evaluation. Her symptoms are not associated with fever, cough with phlegm, chest pain, or confusion. On evaluation patient was found to have low oxygen saturation improved with administration of oxygen and IV Lasix. In ED stat chest x-ray was done and showed large right-sided pleural effusion, CBC showed mild leukocytosis with normocytic anemia , her chemistry significant for creatinine level of 1.7, BNP of more than 3000, initial lactic acid was normal, with normal procalcitonin level. Her COVID and flu tests were also negative. 11/08 patient was seen and examined by bedside with multiple family present. At time of visit patient denies any chest pain or shortness of breadth. Denies any nausea vomiting or abdominal pain. Denies any pain from surgical site. Patient did have a thoracentesis done yesterday by IR 500 mL were removed. Patient's serum creatinine level noted to be trending up at 2.1 this a.m. yesterday 1.3 we will continue to monitor closely at this time we will discontinue patient's Entresto. Patient complaining of difficulty swallowing we will have a speech e giancarlo appreciate assistance we will follow recommendations. PLAN: Continue to monitor serum creatinine level closely Repeat labs in a.m. Discontinue Entresto due to worsening BEN Speech to eval Supplemental oxygen as needed Antibiotics continue to follow recommendations of Infectious Disease specialists Follow up with Dr. Cox's recommendations s/p surgery Continue local wound care Continue to diurese patient Continue Strict I&Os Follow am labs Case management to arrange for SNF REVIEW OF SYSTEMS: 12 point ROS reviewed with patient. Pertinent positives mentioned above. Otherwise negative. PHYSICAL EXAM: GENERAL: alert, weak, awake oriented x 3 HEENT: EOMI, Sclera non icteric, moist mucosa NECK: Supple, no JVD, trachea midline LUNGS: Diminished bilateral lower lobes HEART: Regular rate and rhythm. Normal S1 and S2, without murmurs ABD: Abdomen soft, nontender. Bowel sounds present EXT: No clubbing cyanosis or edema, left BKA NEURO: Alert and oriented to person, follows commands Vital Signs (last 8hr) Date Time Temp Pulse Resp B/P (MAP) Pulse Ox O2 Delivery O2 Flow Rate FiO2 11/08/25 12:00 98.1 82 20 107/69 99 Room Air 11/08/25 11:20 81 18 N/A Room Air 21 11/08/25 11:20 81 18 11/08/25 08:00 97.9 68 19 94/64 97 Room Air LABS: Hematology Labs: Test 11/08/25 04:27 Range/Units White Blood Count 8.9 4.8-10.8 K/uL Red Blood Count 3.78 L 4.00-5.50 MIL/uL Hemoglobin 8.9 L 12.0-16.0 g/dL Hematocrit 29.2 L 36-48 % Mean Corpuscular Volume 77.2 L 79-99 fL Mean Corpuscular Hemoglobin 23.5 L 27.0-33.0 pg Mean Corpuscular Hemoglobin Concent 30.5 L 32.0-36.0 g/dL Red Cell Distribution Width 27.3 H 11.0-15.5 % Platelet Count 246 130-400 K/uL Mean Platelet Volume 10.4 7.5-10.5 fL Nucleated Red Blood Cells 0.0 0.0-0.19 % Chemistry Labs: Test 11/08/25 11:01 11/08/25 04:27 Range/Units Whole Blood Glucose 145 #H 70-110 MG/DL Sodium Level 131 L 136-145 mmol/L Potassium Level 4.7 3.5-5.1 mmol/L Chloride Level 94 L 101-111 mmol/L Carbon Dioxide Level 31 21-32 mmol/L Blood Urea Nitrogen 42 H 7-18 mg/dL Creatinine 2.1 H 0.5-1.0 mg/dL Glomerular Filtration Rate Calc 27 >90 mL/min Random Glucose 98 70-105 mg/dL Total Calcium 8.1 L 8.5-10.1 mg/dL Magnesium Level 2.00 1.80-2.40 mg/dL Total Bilirubin 1.2 H 0.2-1.0 mg/dL Aspartate Amino Transf (AST/SGOT) 32 10-37 U/L Alanine Aminotransferase (ALT/SGPT) 24 12-78 U/L Alkaline Phosphatase 354 H 50-136 U/L Total Protein 6.4 6.0-8.3 g/dL Albumin 1.5 L 3.5-5.0 g/dL Coagulation Labs: Test 11/08/25 04:27 Range/Units Prothrombin Time 11.2 9.6-11.6 SEC Prothromb Time International Ratio 1.06 0.85-1.15 Activated Partial Thromboplast Time 28.8 26.3-35.5 SEC DIAGNOSTICS / RADIOLOGY RESULTS: na PLAN NEURO: Minimize central acting medications as possible. Maintain fall precautions, adequate lighting during the day PULMONARY: Supplemental 02 as needed. Maintain aspiration precautions at all times CARDIOVASCULAR: Follow hemodynamics. Vital signs per facility protocol GI & NUTRITION: Continue with nutritional support. Continue stool softeners and laxatives as needed. KIDNEYS & ELECTROLYTES: Strict monitoring of intake, output and overall fluid balance. Avoid nephrotoxic medications to the extent possible. Medications to be dosed according to renal function. Monitor electrolytes and replace as needed ENDOCRINE: Maintain blood glucose between 100-180 at all times. Hypoglycemia protocol in place INFECTIOUS DISEASE: Trend temperature, WBC and procalcitonin level Follow cultures, deescalate antibiotics as soon as possible. Panculture if new onset fever ONCOLOGY/HEMATOLOGY/COAGULATION: Monitor for s/s of bleeding Monitor hemoglobin, coagulation studies as needed SKIN: Pressure ulcer prevention per facility protocol Specialty mattress Wound care to left TMA ORTHO/REHAB: Continue PT/OT Prophylaxis: Continue GI and DVT prophylaxis Pantoprazole and Heparin Code Status: Full Resuscitation Disposition: TBD Case was discussed with supervising physician plan of care agreed upon KAREN NAVARRETE Nov 08, 2025 15:14
--- NOTE | 2025-11-08 16:53 | CONS ---
CONSULTATION NOTE Date of Service: Nov 08, 2025 Reason for Consultation: [ ] Requesting Physician: [ ] HISTORY OF PRESENT ILLNESS: [ ] REVIEW OF SYSTEMS CONSTITUTIONAL: Denies fever, chills, or fatigue. HEAD/FACE: No signs of trauma. EENT: Denies eye pain, blurred vision, double vision, or light sensitivity. RESPIRATORY: Denies shortness of breath, cough, wheezing CARDIOVASCULAR: Denies chest pain, palpitation, syncope GASTROINTESTINAL/ABDOMINAL: Denies abdominal pain, constipation, diarrhea, nausea or vomiting GENITOURINARY: Denies dysuria or hematuria. MUSCULOSKELETAL: Denies joint pain, tenderness, or trauma. INTEGUMENTARY: Denies rash or itchiness NEUROLOGICAL/PSYCH: Denies anxiety, depression, heat or cold intolerance. PAST MEDICAL HISTORY: [ ] PAST SURGICAL HISTORY: [ ] PAST SOCIAL HISTORY: [ ] FAMILY HISTORY: [ ] Coded Allergies: pineapple (Unverified Allergy, Unknown, 11/01/25) PHYSICAL EXAM EYES: Anicteric. Pupils equal and reactive. HENT: No oral thrush seen, moist Oral mucosa NECK: Supple, no JVD or thyromegaly. LUNGS: Good air entry. No rales, no rhonchi. CARDIOVASCULAR: S1, S2 regular. No murmur heard. ABDOMEN: Soft, non tender, bowel sounds present, no organomegaly CENTRAL NERVOUS SYSTEM: Awake, alert, oriented x 3. No focal deficits. SKIN: No rashes, no swelling. LYMPHATICS: No peripheral lymphadenopathy MUSCULOSKELETAL: No joint swelling, erythema or tenderness. EXTREMITIES: No cyanosis or clubbing BACK: No deformity, no pressure ulcer. GENITOURINARY: No dysuria or hematuria Vital Sign (Last 24 Hours) 11/07/25 11/08/25 20:00 12:00 Temp 98.1 Pulse 82 Resp 20 B/P (MAP) 107/69 Pulse Ox 99 O2 Delivery Room Air O2 Flow Rate 0 Intake & Output (last 24hrs) 11/07/25 11/07/25 11/08/25 15:00 23:00 07:00 Intake Total 60.0 ml 300.0 ml Output Total 200 ml 450 ml Balance -140.0 ml 300.0 ml -450 ml LABS: Laboratory: Test 11/08/25 15:39 11/08/25 04:27 11/07/25 15:20 Range/Units Whole Blood Glucose 140 H 70-110 MG/DL White Blood Count 8.9 4.8-10.8 K/uL Red Blood Count 3.78 L 4.00-5.50 MIL/uL Hemoglobin 8.9 L 12.0-16.0 g/dL Hematocrit 29.2 L 36-48 % Mean Corpuscular Volume 77.2 L 79-99 fL Mean Corpuscular Hemoglobin 23.5 L 27.0-33.0 pg Mean Corpuscular Hemoglobin Concent 30.5 L 32.0-36.0 g/dL Red Cell Distribution Width 27.3 H 11.0-15.5 % Platelet Count 246 130-400 K/uL Mean Platelet Volume 10.4 7.5-10.5 fL Nucleated Red Blood Cells 0.0 0.0-0.19 % Prothrombin Time 11.2 9.6-11.6 SEC Prothromb Time International Ratio 1.06 0.85-1.15 Activated Partial Thromboplast Time 28.8 26.3-35.5 SEC Sodium Level 131 L 136-145 mmol/L Potassium Level 4.7 3.5-5.1 mmol/L Chloride Level 94 L 101-111 mmol/L Carbon Dioxide Level 31 21-32 mmol/L Blood Urea Nitrogen 42 H 7-18 mg/dL Creatinine 2.1 H 0.5-1.0 mg/dL Glomerular Filtration Rate Calc 27 >90 mL/min Random Glucose 98 70-105 mg/dL Total Calcium 8.1 L 8.5-10.1 mg/dL Magnesium Level 2.00 1.80-2.40 mg/dL Total Bilirubin 1.2 H 0.2-1.0 mg/dL Aspartate Amino Transf (AST/SGOT) 32 10-37 U/L Alanine Aminotransferase (ALT/SGPT) 24 12-78 U/L Alkaline Phosphatase 354 H 50-136 U/L Total Protein 6.4 6.0-8.3 g/dL Albumin 1.5 L 3.5-5.0 g/dL Body Fluid Source PLEURAL Body Fluid Volume 500 mL Body Fluid Color LT YELLOW LT YELLOW Body Fluid Supernatant Appearance SLIGHTLY CLOUDY H CLEAR Body Fluid WBC 107 /cu. mm. Body Fluid RBC 16 /cu. mm. Body Fluid Neutrophils 35.0 % Body Fluid Lymphocytes 20 % Body Fluid Monocytes % 9 % Body Fluid Macrophages (%) 33 Body Fluid Mesothelial Cells (%) 3 % Pleural Fluid pH 7 Pleural Fluid Total Protein < 2.0 mg/dL Pleural Fluid LDH 63 U/L Pleural Fluid Glucose 132 DIAGNOSTICS / RADIOLOGY: [ ] PROBLEM LIST : Medical Problems: (1) Acute hypoxemic respiratory failure ICD Codes: J96.01 - Acute respiratory failure with hypoxia (2) CHF exacerbation ICD Codes: I50.9 - Heart failure, unspecified (3) Fluid overload ICD Codes: E87.70 - Fluid overload, unspecified (4) Pleural effusion, right ICD Codes: J90 - Pleural effusion, not elsewhere classified Unspecified open wound to right groin PLAN: Wound care to right groin wound: Cleanse with normal saline, pat dry, apply triple antibiotic ointment, cover with adaptic/Vaseline gauze, gauze, secure with paper tape change daily and prn LUPIS HERNANDEZ ELECTROPHYSIOLOGY TECHNICIAN Nov 08, 2025 16:53
[2025-11-08] MEDS: NEOMY SULF/BACITRAC ZN/POLY OINT 30GM TUBE TP SCH (20:12)
[2025-11-09] VITALS (9 sets, daily range): BP systolic 92–103; BP diastolic 56–61; PULSE 81–92; RESP 16–20; TEMP 97.3–98.2; O2SAT 99
[2025-11-09 04:22] LABS: NUCLEATED RED BLOOD CELLS 0.0 % (0.0-0.19); PLATELET COUNT (AUTO) 237.0 K/uL (130-400); RED BLOOD CELL COUNT(AUTO) 3.53 MIL/uL (4.00-5.50); RED CELL DISTRIBUTION WIDTH 26.9 % (11.0-15.5); WHITE BLOOD COUNT (AUTO) 7.1 K/uL (4.8-10.8)
[2025-11-09 04:32] LABS: CREATININE 2.0 mg/dL (0.5-1.0); GLOMERULAR FILTR. RATE CALC 29.0 mL/min (>90); GLUCOSE,RANDOM 103.0 mg/dL (70-105); SODIUM SERUM 127.0 mmol/L (136-145); UREA NITROGEN, BLOOD 44.0 mg/dL (7-18)
--- NOTE | 2025-11-09 06:24 | HMCIMG ---
Fluoroscopy utilized for the procedure. The total fluoroscopy time is 6 seconds. The total fluoroscopy dose DAP 9.7 mGycm. The interpreting radiologist was not present during the procedure. /[place]
--- NOTE | 2025-11-09 11:30 | NUR ---
SPEECH NOTE: FORESTRY CREW CHIEF coordinated with nurse Quick. As per nurse, patient tolerating diet recommendations of regular solids, thin liquids with no overt s/s of aspiration. Please re-consult speech therapy services if any s/s of aspiration arise. All questions answered. Addendum: 11/09/[address] [facility] Amended: Links added.
--- NOTE | 2025-11-09 13:46 | CONS ---
GASTROENTEROLOGY CONSULTATION NOTE Date of Consultation: Nov 09, 2025 Time of Consultation: 13:44 History of Present Illness: [ 55-year-old female with past medical history of hypertension, hyperlipidemia, DM type 2, obesity, PVD, status post recent left TMA who presented to the ER from [facility] with complaints of shortness of breath with cough. We were consulted for dysphagia. The patient had speeh evaluation and had MBSS which patient passed. Review of Systems: CONSTITUTIONAL: No malaise or change in sensation of wellbeing. ENMT: No rhinorrhea, otorrhea, sinus pain, ear ache. CARDIOVASCULAR: No angina, palpitations, orthopnea or paroxysmal dyspnea. RESPIRATORY: No SOB. GASTROINTESTINAL: No abdominal pain, nausea, vomiting, diarrhea, hematemesis, melena or change in the patient's habitual bowel movements consistency/number. GENITOURINARY: No dysuria, hematuria or change in bladder continence. MUSCULOSKELETAL: No new muscle pain or decrease in muscular strength. No new joint swelling, redness or tenderness. SKIN: No new rash. Past Medical History: [ Hypertenstion, hyperlipidemia, Type 2 DM, Obesity, PVD, Past Surgical History: [ Left TMA] Past Social History: [ ] Family History: [ ] Coded Allergies: pineapple (Unverified Allergy, Unknown, 11/01/25) Physical Exam: GEN: Awake, alert, oriented in person, time and place, and in no acute distress. HEENT: No rhinorrhea. Oral pharyngeal mucosa is pink, moist and within normal limits. CHEST: Lung auscultation revealed normal breath sounds bilaterally. CARDIAC:Heart sounds are regular. ABD: Soft, non-tender and not distended. No peritoneal signs on palpation. Normal bowel norma EXT: No cyanosis or clubbing. No edema. SKIN: Intact. No rashes. NEURO: Alert and oriented to name, place and person.No focal motor deficits. Normal speech. Vital Sign (Last 24 Hours) 11/08/25 11/09/25 11/09/25 20:00 07:25 11:57 Temp 97.3 Pulse 85 Resp 17 B/P (MAP) 92/56 Pulse Ox 99 O2 Delivery Room Air O2 Flow Rate 0 FiO2 21 Intake & Output (last 24hrs) 11/08/25 11/08/25 11/09/25 15:00 23:00 07:00 Intake Total 250 ml 50.0 ml Output Total 375 ml 380 ml Balance -125 ml -330.0 ml Laboratory: [ ] Laboratory: Test 11/09/25 10:45 11/09/25 04:08 11/08/25 04:27 11/07/25 15:20 Range/Units Whole Blood Glucose 178 #H 70-110 MG/DL White Blood Count 7.1 4.8-10.8 K/uL Red Blood Count 3.53 L 4.00-5.50 MIL/uL Hemoglobin 8.4 L 12.0-16.0 g/dL Hematocrit 27.0 L 36-48 % Mean Corpuscular Volume 76.5 L 79-99 fL Mean Corpuscular Hemoglobin 23.8 L 27.0-33.0 pg Mean Corpuscular Hemoglobin Concent 31.1 L 32.0-36.0 g/dL Red Cell Distribution Width 26.9 H 11.0-15.5 % Platelet Count 237 130-400 K/uL Mean Platelet Volume 9.9 7.5-10.5 fL Nucleated Red Blood Cells 0.0 0.0-0.19 % Sodium Level 127 L 136-145 mmol/L Potassium Level 3.7 3.5-5.1 mmol/L Chloride Level 93 L 101-111 mmol/L Carbon Dioxide Level 30 21-32 mmol/L Blood Urea Nitrogen 44 H 7-18 mg/dL Creatinine 2.0 H 0.5-1.0 mg/dL Glomerular Filtration Rate Calc 29 >90 mL/min Random Glucose 103 70-105 mg/dL Total Calcium 8.1 L 8.5-10.1 mg/dL Prothrombin Time 11.2 9.6-11.6 SEC Prothromb Time International Ratio 1.06 0.85-1.15 Activated Partial Thromboplast Time 28.8 26.3-35.5 SEC Magnesium Level 2.00 1.80-2.40 mg/dL Total Bilirubin 1.2 H 0.2-1.0 mg/dL Aspartate Amino Transf (AST/SGOT) 32 10-37 U/L Alanine Aminotransferase (ALT/SGPT) 24 12-78 U/L Alkaline Phosphatase 354 H 50-136 U/L Total Protein 6.4 6.0-8.3 g/dL Albumin 1.5 L 3.5-5.0 g/dL Body Fluid Source PLEURAL Body Fluid Volume 500 mL Body Fluid Color LT YELLOW LT YELLOW Body Fluid Supernatant Appearance SLIGHTLY CLOUDY H CLEAR Body Fluid WBC 107 /cu. mm. Body Fluid RBC 16 /cu. mm. Body Fluid Neutrophils 35.0 % Body Fluid Lymphocytes 20 % Body Fluid Monocytes % 9 % Body Fluid Macrophages (%) 33 Body Fluid Mesothelial Cells (%) 3 % Pleural Fluid pH 7 Pleural Fluid Total Protein < 2.0 mg/dL Pleural Fluid LDH 63 U/L Pleural Fluid Glucose 132 Current Medications Medications (Trade) Dose Ordered Sig/Blanca Route PRN Reason Start Time Stop Time Status Last Admin Dose Admin Acetaminophen (TYLenol 325MG TAB) 650 mg Q6H PRN PO FEVER/MILD PAIN LEVEL 1-3 10/18/25 22:00 11/17/25 21:59 11/08/25 20:11 650 MG Acetaminophen (TYLenol 650MG SUPPOSITORY) 650 mg Q6H PRN RC FEVER / MILD PAIN 1-3 IF NPO 10/18/25 22:00 11/17/25 21:59 Acetaminophen/ Hydrocodone Bitart (NORco 5/325MG) 1 tab Q4H PRN PO MODERATE PAIN (4-6) 10/28/25 23:30 11/01/25 10:32 DC 11/01/25 08:19 1 TAB Acetaminophen/ Hydrocodone Bitart (NORco 5/325MG) 1 tab Q4H PRN PO MODERATE PAIN (4-6) 11/01/25 10:30 11/06/25 10:29 DC 11/02/25 22:58 1 TAB Albuterol (DUOneb) 1 udvial [id number] 10/18/25 22:00 10/19/25 10:46 DC 10/19/25 10:27 1 UDVIAL Albuterol (DUOneb) 1 udvial [id number] 10/19/25 18:00 11/17/25 21:59 11/09/25 11:22 1 UDVIAL Ascorbic Acid (Vitamin C 500mg Tab) 500 mg DAILY PO 10/19/25 09:00 11/18/25 08:59 11/09/25 08:01 500 MG Aspirin (Aspirin 81mg Ec Tab) 81 mg DAILY PO 10/24/25 09:00 11/23/25 08:59 11/09/25 08:01 81 MG Atorvastatin Calcium (LIPItor 40MG) 80 mg HS PO 10/24/25 21:00 11/23/25 20:59 11/08/25 20:09 80 MG Bisacodyl (DulcoLAX 5MG TAB) 10 mg BID PO 11/03/25 11:30 12/03/25 11:29 11/06/25 19:12 10 MG Cefepime HCl (MAXipime 1 GM vial) 1 gm Q12H IVP 10/18/25 22:00 10/28/25 21:59 DC 10/28/25 10:42 1 GM Cefepime HCl (MAXipime 1 GM vial) 1 gm Q12H IVPB 10/31/25 11:30 11/10/25 11:29 11/09/25 10:55 1 GM Dextrose (D50w) 50 ml AD PRN IV HYPOGLYCEMIA PROTOCOL 10/19/25 09:00 11/18/25 08:59 Docusate Sodium (COLace 100MG CAP) 100 mg BID PRN PO CONSTIPATION 10/21/25 18:30 11/20/25 18:29 10/24/25 20:21 100 MG Docusate Sodium (COLace 100MG CAP) 100 mg BID PRN PO CONSTIPATION 10/22/25 12:00 10/22/25 11:48 DC Docusate Sodium (COLace 100MG CAP) 100 mg BID PRN PO CONSTIPATION 11/03/25 11:30 11/04/25 08:04 DC Doxycycline Hyclate 250 ml @ 125 mls/hr Q12H IV 10/19/25 08:30 10/29/25 08:29 DC 10/28/25 21:51 125 MLS/HR Fentanyl Citrate (FENTanyl CITRate PF 50 MCG/ 1 ML 2ML VIAL) 25 mcg Q5MIN PRN IVP PAIN LEVEL 7 TO 10 11/04/25 13:30 11/04/25 15:25 DC Furosemide (LASix 20MG VIAL) 20 mg Q12H IV 11/06/25 13:00 11/07/25 13:21 DC Furosemide (LASix 40MG VIAL) 40 mg Q12H IV 10/19/25 09:00 10/27/25 13:05 DC 10/27/25 08:51 40 MG Furosemide (LASix 40MG VIAL) 40 mg Q8H IV 10/27/25 13:30 11/06/25 12:54 DC 11/05/25 14:43 40 MG Gabapentin (NEURontin 300 MG CAP) 300 mg BID PO 10/24/25 09:00 11/23/25 08:59 11/09/25 08:01 300 MG Glucagon (Glucagon 1mg Kit) 1 mg AD PRN IM HYPOGLYCEMIA PROTOCOL 10/19/25 09:00 11/18/25 08:59 Heparin Sodium (Porcine) (HEParin 5,000 UNIT VIAL) 5,000 unit BID SQ 10/19/25 21:00 10/19/25 20:42 DC Heparin Sodium (Porcine) (HEParin 5,000 UNIT VIAL) 5,000 unit Q12H SQ 10/19/25 21:00 10/26/25 14:11 DC 10/25/25 22:52 5,000 UNIT Heparin Sodium (Porcine) (HEParin 5,000 UNIT VIAL) 5,000 unit Q12H SQ 10/28/25 10:30 11/03/25 15:11 DC 11/03/25 11:22 5,000 UNIT Heparin Sodium (Porcine) (HEParin 5,000 UNIT VIAL) 5,000 unit Q8H SQ 10/18/25 22:00 10/19/25 20:40 DC 10/19/25 14:51 5,000 UNIT Home Med (Home Medication) (Vericiguat (Verquvo) 1 TAB) DAILY PO 10/24/25 09:00 11/23/25 08:59 Hydralazine HCl (APRESOLine 20MG INJ) 10 mg Q6H PRN IV SBP GREATER THAN 180 10/18/25 22:00 10/18/25 21:57 DC Hydromorphone HCl (DiLAUDid 0.5MG INJ) 0.5 mg Q6H PRN IVP SEVERE PAIN (7-10) 10/24/25 01:00 10/29/25 00:59 DC 10/28/25 06:01 0.5 MG Hydromorphone HCl (DiLAUDid 1MG INJ) 0.5 mg Q6H PRN IVP SEVERE PAIN (7-10) 10/23/25 04:00 10/24/25 00:41 DC 10/23/25 10:28 0.5 MG Hydromorphone HCl (DiLAUDid 1MG INJ) 0.5 mg Q8H PRN IVP SEVERE PAIN (7-10) 10/21/25 08:30 10/23/25 03:46 DC 10/22/25 20:52 0.5 MG Insulin Human Regular (humuLIN R 100 UNIT/ML 3ML) INSULIN SLIDING SCAL... ACHS SQ 10/19/25 07:30 11/18/25 07:29 11/09/25 10:58 4 UNIT Ketorolac Tromethamine (toRADol) 15 mg Q6H PRN IV MODERATE PAIN (4-6) 11/05/25 04:00 11/10/25 03:59 11/06/25 15:35 15 MG Ketorolac Tromethamine (toRADol) 30 mg AD PRN IV PAIN LEVEL 1 TO 3 11/04/25 13:30 11/04/25 15:25 DC Labetalol HCl (TRANdate 20MG SYG) 10 mg Q2H PRN IV SBP GREATER THAN 180 10/18/25 22:00 11/17/25 21:59 Lactic Acid (Lachydrin 226gm Lotion) 1 APPLICATION RIGHT FOOT/ ANKLE/LEG ... DAILY TP 11/10/25 09:00 12/10/25 08:59 Lactulose (Constulose 20gm/ 30ml Udcup) 20 gm BID PO 10/26/25 21:00 10/27/25 16:23 DC 10/26/25 20:43 20 GM Lactulose (Constulose 20gm/ 30ml Udcup) 20 gm BIDPRN PRN PO CONSTIPATION 10/27/25 16:30 11/25/25 20:59 Magnesium Sulfate 50 ml @ 0 mls/hr PROTOCOL PRN IV MAGNESIUM PROTOCOL 10/19/25 18:00 11/18/25 17:59 11/05/25 06:09 25 MLS/HR Metoclopramide HCl (regLAN 10MG IV) 10 mg AD PRN IVP NAUSEA/VOMITING 11/04/25 13:30 11/04/25 15:25 DC Metolazone (zarOXOlyn) 5 mg BID PO 10/29/25 21:00 11/28/25 20:59 11/05/25 08:57 5 MG Metoprolol Tartrate (loprESSOR) 25 mg BID PO 10/24/25 09:00 11/23/25 08:59 11/08/25 20:09 25 MG Miscellaneous Medication (Enalapril Maleate ) 1 tab DAILY PO 10/24/25 09:00 10/24/25 07:53 DC Morphine Sulfate (morPHINE 2MG SYG) 2 mg AD PRN IVP PAIN LEVEL 4 TO 6 11/04/25 13:30 11/04/25 15:25 DC Morphine Sulfate (morPHINE 2MG SYG) 2 mg Q4H PRN IVP SEVERE PAIN (7-10) 10/18/25 22:00 10/20/25 22:35 DC 10/19/25 12:24 2 MG Morphine Sulfate (morPHINE 4MG SYG) 2 mg Q4H PRN IVP SEVERE PAIN (7-10) 10/20/25 23:00 10/21/25 08:28 DC 10/20/25 22:48 2 MG Morphine Sulfate (morPHINE 4MG SYG) 4 mg Q4H PRN IVP SEVERE PAIN (7-10) 11/05/25 04:00 11/12/25 03:59 Naloxone HCl (NARcan 0.4mg/1 mL) 0.1 mg AD PRN IVP RESPIRATORY SYMPTOMS 11/05/25 00:00 11/04/25 15:25 DC Neomycin/ Polymyxin/ Bacitracin (Triple Antibiotic Ointment) APPLY TO right groin wound DAILY20 TP 11/08/25 20:00 12/08/25 19:59 11/08/25 20:12 1 APPL Ondansetron HCl (zoFRAN 4MG INJ) 4 mg AD PRN IVP NAUSEA/VOMITING 11/04/25 13:30 11/04/25 15:25 DC Ondansetron HCl (zoFRAN 4MG INJ) 4 mg Q6H PRN IVP NAUSEA/VOMITING 10/18/25 22:00 11/17/25 21:59 Pantoprazole Sodium (PROTonix 40MG INJ) 40 mg DAILY IVP 10/19/25 09:00 11/18/25 08:59 11/09/25 08:01 40 MG Piperacillin Sod/ Tazobactam Sod (Zosyn 3.375gm+NS 50ml) 3.375 gm Q12H IVPB 10/30/25 09:30 10/31/25 11:16 DC 10/31/25 08:09 3.375 GM Polyethylene Glycol (MIRalax 3350 17 GM POWD.PACK) 17 gm DAILY PO 10/19/25 09:00 11/18/25 08:59 11/03/25 07:34 17 GM Potassium Chloride 100 ml @ 100 mls/hr AD PRN IV POTASSIUM PROTOCOL 10/19/25 18:00 11/18/25 17:59 10/27/25 05:18 100 MLS/HR Potassium Chloride (K-Dur/Klor-Con 20meq) 20 meq AD PRN PO POTASSIUM PROTOCOL 10/19/25 18:00 11/18/25 17:59 11/09/25 10:56 20 MEQ Potassium Chloride (KCl 10% Elixir 20meq/15ml) 20 meq AD PRN PO POTASSIUM PROTOCOL 10/19/25 18:00 11/18/25 17:59 10/31/25 06:03 20 MEQ Promethazine HCl (Phenergan) 25 mg AD PRN IM NAUSEA/VOMITING 11/04/25 13:30 11/04/25 15:25 DC Sacubitril/ Valsartan (Entresto 49 Mg-51 Mg Tablet) 1 each BID PO 10/24/25 09:00 11/08/25 15:23 DC 11/06/25 08:07 1 EACH Sennosides (Senna) 1 tab BID PRN PO CONSTIPATION 10/21/25 18:30 11/20/25 18:29 10/23/25 04:01 1 TAB Sennosides (Senna) 1 tab DAILY PO 10/23/25 09:00 11/22/25 08:59 11/06/25 08:07 1 TAB Spironolactone (Aldactone 25mg) 100 mg DAILY PO 10/24/25 09:00 11/23/25 08:59 11/05/25 08:58 100 MG Vancomycin HCl 250 ml @ 125 mls/hr BID@0600,1800 IV 11/05/25 06:00 11/06/25 12:57 DC 11/05/25 16:55 125 MLS/HR Vancomycin HCl 250 ml @ 125 mls/hr ONCE IV 11/04/25 16:30 11/04/25 19:30 DC 11/04/25 16:40 125 MLS/HR Vancomycin HCl 250 ml @ 125 mls/hr Q24H IV 10/30/25 15:00 11/02/25 14:46 DC 11/01/25 15:55 125 MLS/HR Vancomycin HCl 250 ml @ 125 mls/hr Q24H IV 11/03/25 14:00 11/03/25 13:54 DC Vancomycin HCl 250 ml @ 125 mls/hr Q24H IV 11/04/25 14:00 11/04/25 16:05 DC Vancomycin HCl (Vancomycin Protocol) 1 each AD IV 10/30/25 10:30 11/06/25 12:59 DC Diagnostics / Radiology: [COPY/PASTE HERE IF NO REPORTS PLEASE DELETE SECTION] Assessment: [Dysphagia ] Plan: [Case discussed with Dr. Zepeda NO gi endoscopic intervention recommended at this time given patient passed MBSS. Patient may bee seen as outpatient for EGD at [facility] once discharged Patient may have diet as tolerated as recommended speech evaluation. Thank you for this consult. ] SARAH ALVARADOP Nov 09, 2025 13:45
--- NOTE | 2025-11-09 15:06 | PN ---
[facility] PROGRESS NOTE Date Patient Seen: Nov 09, 2025 Time of Visit: 1209 Supervising Physician: Dr. Hoff Primary Care Physician: Dr. Savanah Zhang Outpatient Specialists: [ ] Inpatient Consults: Dr. Cox,(podiatry), Dr Guanako Fry (gen surgery), Dr. Angel Ingram (cardiology) PROBLEM LIST: Left foot gangrene s/p Left kaluv-sku-iyrg amputation on 11/04/[address] Mat Fry Acute hypoxic respiratory failure, likely from right-sided pleural effusion - resolved Acute diastolic CHF exacerbation,50-55%, stage III diastolic dysfunction Sepsis, multifactorial, likely from respiratory, genitourinary infection Right lung recurrent pleural effusion secondary congestive heart failure -Thoracentesis on 10/22/2025, 700ml drained by Dr. Rosalio Zhang -Thoracentesis by IR on 11/07/25 500 ml removed Ototoxicity symptoms DM type II, with hyperglycemia BEN, POA CHRONIC PROBLEM LIST: Left foot TMA 09/11 Osteomyelitis Hypertension Hyperlipidemia Diabetes mellitus type 2 Obesity, BMI of 35.5, History of CAD,CABG, 2023 History of PVD, left TMA 09/2025 INTERVAL HISTORY: 55-year-old female with past medical history of hypertension, hyperlipidemia, DM type 2, obesity, PVD, status post recent left TMA with Dr. Cox who [facility] for low oxygen saturation, and worsening shortness of breaths. Patient was seen and examined in ED with no relatives present at bedside. Apparently patient recently had left TMA last month, was sent to above-mentioned rehab for continued recovery and long-term antibiotic therapy. Today he started to have some shortness of breath with associated cough. She was sent to ER for further medical evaluation. Her symptoms are not associated with fever, cough with phlegm, chest pain, or confusion. On evaluation patient was found to have low oxygen saturation improved with administration of oxygen and IV Lasix. In ED stat chest x-ray was done and showed large right-sided pleural effusion, CBC showed mild leukocytosis with normocytic anemia , her chemistry significant for creatinine level of 1.7, BNP of more than 3000, initial lactic acid was normal, with normal procalcitonin level. Her COVID and flu tests were also negative. 11/08 patient was seen and examined by bedside with multiple family present. At time of visit patient denies any chest pain or shortness of breadth. Denies any nausea vomiting or abdominal pain. Denies any pain from surgical site. Patient did have a thoracentesis done yesterday by IR 500 mL were removed. Patient's serum creatinine level noted to be trending up at 2.1 this a.m. yesterday 1.3 we will continue to monitor closely at this time we will discontinue patient's Entresto. Patient complaining of difficulty swallowing we will have a speech e giancarlo appreciate assistance we will follow recommendations. 11/09 patient was seen and examined by bedside with no family present. At time of visit patient has no specific complaints. Patient had MBSS done yesterday and as per speech therapy no aspiration noted however may want to consider upper GI or GI consult to further evaluate esophageal function due to globus sensation, appreciate assistance we will follow recommendations. At this time we will consult GI, and we will follow recommendations. At time of visit patient reports tolerating p.o. diet. Having bowel movements. We will continue to monitor patient closely. And repeat patient's labs tomorrow morning. Patient's serum creatinine level noted to remain the same this a.m. 2.0 yesterday 2.1 we will repeat labs tomorrow PLAN: Consult GI Continue to monitor serum creatinine level closely Repeat labs in a.m. Discontinue Entresto due to worsening BEN Supplemental oxygen as needed Antibiotics continue to follow recommendations of Infectious Disease specialists Follow up with Dr. Cox's recommendations s/p surgery Continue local wound care Continue to diurese patient Continue Strict I&Os Follow am labs Case management to arrange for SNF REVIEW OF SYSTEMS: 12 point ROS reviewed with patient. Pertinent positives mentioned above. Otherwise negative. PHYSICAL EXAM: GENERAL: alert, weak, awake oriented x 3 HEENT: EOMI, Sclera non icteric, moist mucosa NECK: Supple, no JVD, trachea midline LUNGS: Diminished bilateral lower lobes HEART: Regular rate and rhythm. Normal S1 and S2, without murmurs ABD: Abdomen soft, nontender. Bowel sounds present EXT: No clubbing cyanosis or edema, left BKA NEURO: Alert and oriented to person, follows commands Vital Signs (last 8hr) Date Time Temp Pulse Resp B/P (MAP) Pulse Ox O2 Delivery O2 Flow Rate FiO2 11/09/25 11:57 97.3 85 17 92/56 99 Room Air 11/09/25 11:23 84 16 11/09/25 08:10 97.3 87 17 94/56 92 Room Air 11/09/25 07:25 90 18 N/A Room Air 11/09/25 07:22 88 16 LABS: Hematology Labs: Test 11/09/25 04:08 Range/Units White Blood Count 7.1 4.8-10.8 K/uL Red Blood Count 3.53 L 4.00-5.50 MIL/uL Hemoglobin 8.4 L 12.0-16.0 g/dL Hematocrit 27.0 L 36-48 % Mean Corpuscular Volume 76.5 L 79-99 fL Mean Corpuscular Hemoglobin 23.8 L 27.0-33.0 pg Mean Corpuscular Hemoglobin Concent 31.1 L 32.0-36.0 g/dL Red Cell Distribution Width 26.9 H 11.0-15.5 % Platelet Count 237 130-400 K/uL Mean Platelet Volume 9.9 7.5-10.5 fL Nucleated Red Blood Cells 0.0 0.0-0.19 % Chemistry Labs: Test 11/09/25 10:45 11/09/25 04:08 11/08/25 04:27 Range/Units Whole Blood Glucose 178 #H 70-110 MG/DL Sodium Level 127 L 136-145 mmol/L Potassium Level 3.7 3.5-5.1 mmol/L Chloride Level 93 L 101-111 mmol/L Carbon Dioxide Level 30 21-32 mmol/L Blood Urea Nitrogen 44 H 7-18 mg/dL Creatinine 2.0 H 0.5-1.0 mg/dL Glomerular Filtration Rate Calc 29 >90 mL/min Random Glucose 103 70-105 mg/dL Total Calcium 8.1 L 8.5-10.1 mg/dL Magnesium Level 2.00 1.80-2.40 mg/dL Total Bilirubin 1.2 H 0.2-1.0 mg/dL Aspartate Amino Transf (AST/SGOT) 32 10-37 U/L Alanine Aminotransferase (ALT/SGPT) 24 12-78 U/L Alkaline Phosphatase 354 H 50-136 U/L Total Protein 6.4 6.0-8.3 g/dL Albumin 1.5 L 3.5-5.0 g/dL Coagulation Labs: Test 11/08/25 04:27 Range/Units Prothrombin Time 11.2 9.6-11.6 SEC Prothromb Time International Ratio 1.06 0.85-1.15 Activated Partial Thromboplast Time 28.8 26.3-35.5 SEC DIAGNOSTICS / RADIOLOGY RESULTS: na PLAN NEURO: Minimize central acting medications as possible. Maintain fall precautions, adequate lighting during the day PULMONARY: Supplemental 02 as needed. Maintain aspiration precautions at all times CARDIOVASCULAR: Follow hemodynamics. Vital signs per facility protocol GI & NUTRITION: Continue with nutritional support. Continue stool softeners and laxatives as needed. KIDNEYS & ELECTROLYTES: Strict monitoring of intake, output and overall fluid balance. Avoid nephrotoxic medications to the extent possible. Medications to be dosed according to renal function. Monitor electrolytes and replace as needed ENDOCRINE: Maintain blood glucose between 100-180 at all times. Hypoglycemia protocol in place INFECTIOUS DISEASE: Trend temperature, WBC and procalcitonin level Follow cultures, deescalate antibiotics as soon as possible. Panculture if new onset fever ONCOLOGY/HEMATOLOGY/COAGULATION: Monitor for s/s of bleeding Monitor hemoglobin, coagulation studies as needed SKIN: Pressure ulcer prevention per facility protocol Specialty mattress Wound care to left TMA ORTHO/REHAB: Continue PT/OT Prophylaxis: Continue GI and DVT prophylaxis Pantoprazole and Heparin Code Status: Full Resuscitation Disposition: TBD Case was discussed with supervising physician plan of care agreed upon KAREN NAVARRETE Nov 09, 2025 15:06
--- NOTE | 2025-11-09 15:13 | NUR ---
DISPOSITION VIA TELEPHONE. SPOKE TO GOLDIE BROWN. ORDERED TO LEAVE GORDON CATH IN PLACE AND DC MIDLINE. NO FURTHER ORDERS GIVEN.
--- NOTE | 2025-11-09 15:15 | NUR ---
PROVIDER CALL INFORMED GOLDIE BROWN VIA TELEPHONE. PT DENIES DIFFICULTY SWALLOWING. GOLDIE BROWN SPOKE TO PT VIA TELEPHONE. KAREN ORDERED TO DC CEFEPIME AND CANCEL GI CONSULT. NO FURTHER ORDERS GIVEN AT THIS TIME.
--- NOTE | 2025-11-09 15:43 | DS ---
[facility] DISCHARGE SUMMARY Date Patient Seen: Nov 09, 2025 Time of Visit: 1500 Supervising Physician: Dr. Hoff Primary Care Physician: Dr. Savanah Zhang Outpatient Specialists: [ ] Inpatient Consults: Dr. Cox,(podiatry), Dr Guanako Fry (gen surgery), Dr. Angel Ingram (cardiology) PROBLEM LIST: Left foot gangrene s/p Left thqfy-bgl-cnor amputation on 11/04/[address] Mat Fry Acute hypoxic respiratory failure, likely from right-sided pleural effusion - resolved Acute diastolic CHF exacerbation,50-55%, stage III diastolic dysfunction, reso lved Sepsis, multifactorial, likely from respiratory, genitourinary infection, resolved completed treatment be Right lung recurrent pleural effusion secondary congestive heart failure -Thoracentesis on 10/22/2025, 700ml drained by Dr. Rosalio Zhang -Thoracentesis by IR on 11/07/25 500 ml removed Ototoxicity symptoms DM type II, with hyperglycemia Acute on chronic kidney disease, stable CHRONIC PROBLEM LIST: Left foot TMA 09/11 Osteomyelitis Hypertension Hyperlipidemia Diabetes mellitus type 2 Obesity, BMI of 35.5, History of CAD,CABG, 2023 History of PVD, left TMA 09/2025 HOSPITAL COURSE: HPI (per admitting provider)55-year-old female with past medical history of hypertension, hyperlipidemia, DM type 2, obesity, PVD, status post recent left TMA with Dr. Cox who [facility] for low oxygen saturation, and worsening shortness of breaths. Patient was seen and examined in ED with no relatives present at bedside. Apparently patient recently had left TMA last month, was sent to above-mentioned rehab for continued recovery and long-term antibiotic therapy. Today he started to have some shortness of breath with associated cough. She was sent to ER for further medical evaluation. Her symptoms are not associated with fever, cough with phlegm, chest pain, or c onfusion. patient was seen and examined by bedside with no family present. At time of visit patient has no specific complaints. Patient had MBSS done yesterday and as per speech therapy no aspiration noted however may want to consider upper GI or GI consult to further evaluate esophageal function due to globus sensation, At time of visit patient reports tolerating p.o. diet. Having bowel movements. Patient's serum creatinine level noted to remain the same this a.m. 2.0 yesterday 2.1. As per patient would prefer to see GI as an outpatient due to not having any difficulty with meals or drinking any liquids anymore. Patient h as been accepted to SNF, and patient wishes to be discharged today to SNF. Patient was instructed that we will need to follow up with PCP GI and Nephrology's as an outpatient within 1-3 days. Patient voices understanding and agrees with plan has no questions at this time. 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 [id number] mg b.i.d. Metolazone5 mg b.i.d. Dulcolax 10 mg b.i.d. Vitamin-C 500 mg daily [id number] g daily Protonix 40 mg daily Senna one tab daily [id number] mg daily Spironolactone 100 mg daily Atorvastatin 80 mg q.h.s. Pt hemodynamically stable and afebrile at time of discharge. PCP notified of david langford admission, hospital course and discharge. PHYSICAL EXAM: GENERAL: alert, weak, awake oriented x 3 HEENT: EOMI, Sclera non icteric, moist mucosa NECK: Supple, no JVD, trachea midline LUNGS: Diminished bilateral lower lobes HEART: Regular rate and rhythm. Normal S1 and S2, without murmurs ABD: Abdomen soft, nontender. Bowel sounds present EXT: No clubbing cyanosis or edema, left BKA NEURO: Alert and oriented to person, follows commands FOLLOW-UP: Follow-up with PCP in 2-3 days Follow up with GI within 1-3 days upon discharge Follow up Nephrology's within 1-3 days RECOMMENDATIONS: See Discharge Instructions This case was seen and discussed with my supervising physician. 35 minutes spent on discharge process, including evaluation of the patient, discussion with nursing staff, medication reconciliation and follow-up appointments KAREN NAVARRETE Nov 09, 2025 15:43
--- NOTE | 2025-11-09 16:50 | NUR ---
REPORT CALLED REPORT TO [facility]. GAVE REPORT TO KIMMY MORTON. ANSWERED ALL QUESTIONS.
--- NOTE | 2025-11-09 17:52 | NUR ---
MIDLINE Midline to right upper arm removed, no active bleeding noted, pressure applied to site, pressure dressing applied, tip of catheter intact, denies c/o pain, or discomfort, family at bedside, no sob, in good spirit, patient discharging to [place].
--- NOTE | 2025-11-09 18:00 | NUR ---
DISCHARGE PT GOING BACK TO [facility]. MIDLINE DISCONTINUED BY POWER PITT. FAMILY AT BEDSIDE. PT AWARE TO FOLLOW UP WITH PCP, HVAC REFRIGERATION TECHNICIAN, GI SPECIALIST, AND CONSTRUCTION FIELD ENGINEER DR. ALLEN. PT ACKNOWLEDGED INFORMATION. [facility] CATHETER IN PLACE. PER GOLDIE BROWN PT WILL BE LEAVING WITH [facility] CATHETER. ANSWERED ALL QUESTIONS. DRESSING TO LEFT BKA AND RIGHT GROIN DRY AND INTACT.
--- NOTE | 2025-11-09 21:08 | PN ---
SUBJECTIVE: The patient is a very pleasant 55-year-old female status post yrore-onv-xfsv amputation on the left. She states her pain is greatly improved. It is minimal to the left foot surgical site. She is concerned of dry skin to her right foot, right ankle. She is being followed for pewwm-yvz-arkq amputation on the left, acute hypoxic respiratory failure, right-sided pleural effusion, acute diastolic congestive heart failure, sepsis, multifactorial, right lung recurrent pleural effusion secondary to congestive heart failure, history of thoracentesis 10/22/2025, and 11/07/2025, ototoxicity symptoms, type 2 diabetes with hyperglycemia, acute kidney injury, hyperlipidemia, hypertension, diabetes type 2, obesity, BMI 35.5, coronary artery disease status post CABG 2023. OBJECTIVE: Her examination today shows she has palpable pedal pulses to the right foot. The right foot is warm. She has +1 pitting edema. Her toenails are thickened but not elongated. She has dry, scaly, lichenified pedal and ankle skin. She has no ulcerations, no blistering, no cellulitis to the right lower extremity. ASSESSMENT: Hetsm-nnc-zsks amputation on the left, recurrent pleural effusions status post recurrent thoracentesis, acute hypoxic respiratory failure, acute diastolic congestive heart failure, sepsis multifactorial. The patient is currently receiving no antibiotic therapy. The patient is currently afebrile and her white count is within normal limits. The patient with pedal dry, scaly, lichenified skin to her foot and ankle on the right. PLAN: I will arrange the patient for ammonium lactate 12% lotion to apply topically daily to the dry lichenified skin to her feet and ankle on that right side. TID: [id number] RECEIPT: [id number]
[2025-11-10] MEDS ORDERED: AMMONIUM LACTATE 226GM LOTION TP SCH (09:00)
== END 2025-11-09 18:09 | DRG 853 ==
LOC: EDH 17:10 → EDHIP 21:36 → 2AH 10-19 13:50 → 3AH 10-31 03:01
PROVIDERS: ADMIT Internal Medicine Pulmonary Disease; ATTEND Internal Medicine Pulmonary Disease
PROC: 0W993ZZ Drainage of Right Pleural Cavity, Percutaneous Approach (ICD-10-PCS; 2025-10-22)
PROC: 05HB33Z Insertion of Infusion Device into Right Basilic Vein, Percutaneous Approach (ICD-10-PCS; 2025-10-24)
PROC: B54MZZA Ultrasonography of Right Upper Extremity Veins, Guidance (ICD-10-PCS; 2025-10-24)
PROC: B41F1ZZ Fluoroscopy of Right Lower Extremity Arteries using Low Osmolar Contrast (ICD-10-PCS; 2025-10-26)
PROC: B41G1ZZ Fluoroscopy of Left Lower Extremity Arteries using Low Osmolar Contrast (ICD-10-PCS; 2025-10-26)
PROC: 0Y6J0Z1 Detachment at Left Lower Leg, High, Open Approach (ICD-10-PCS; principal; 2025-11-04 10:00)
DX: A41.9 Sepsis, unspecified organism (principal); I50.33 Acute on chronic diastolic (congestive) heart failure; J96.01 Acute respiratory failure with hypoxia; T87.89 Other complications of amputation stump; N17.9 Acute kidney failure, unspecified; I13.0 Hypertensive heart and chronic kidney disease with heart failure and stage 1 through stage 4 chronic kidney disease, or unspecified chronic kidney disease; M86.672 Other chronic osteomyelitis, left ankle and foot; E11.22 Type 2 diabetes mellitus with diabetic chronic kidney disease; D64.9 Anemia, unspecified; E11.52 Type 2 diabetes mellitus with diabetic peripheral angiopathy with gangrene; N30.00 Acute cystitis without hematuria; Z68.35 Body mass index [BMI] 35.0-35.9, adult; N18.9 Chronic kidney disease, unspecified; L97.528 Non-pressure chronic ulcer of other part of left foot with other specified severity; E11.621 Type 2 diabetes mellitus with foot ulcer; E11.622 Type 2 diabetes mellitus with other skin ulcer; E11.65 Type 2 diabetes mellitus with hyperglycemia; E11.69 Type 2 diabetes mellitus with other specified complication; I25.10 Atherosclerotic heart disease of native coronary artery without angina pectoris; E78.5 Hyperlipidemia, unspecified; E66.812 Obesity, class 2; Y83.5 Amputation of limb(s) as the cause of abnormal reaction of the patient, or of later complication, without mention of misadventure at the time of the procedure; I25.2 Old myocardial infarction; Z79.899 Other long term (current) drug therapy; Z95.1 Presence of aortocoronary bypass graft; Z87.891 Personal history of nicotine dependence; Z79.2 Long term (current) use of antibiotics; Z68.28 Body mass index [BMI] 28.0-28.9, adult
CPT/HCPCS: 32554; 32555; 36247; 36415; 36556; 36600; 71045; 71250; 73718; 74230; 75716; 80048; 80053; 80202; 81001; 82306; 82550; 82607; 82803; 82945; 82948; 83036; 83605; 83615; 83735; 83880; 83986; 84100; 84145; 84157; 84484; 85025; 85027; 85610; 85730; 86850; 86900; 86901; 87071; 87086; 87116; 87205; 87206; 87635; 87804; 87880; 88108; 88305; 89051; 92610; 92611; 93005; 93306; 93356; 93926; 94640; 94664; 94667; 94668; 96374; 99156; 99157; 99285; C1729; C1760; C1769; C1894; G0378; J0330; J0692; J1171; J1644; J1815; J1885; J1938; J2003; J2250; J2270; J2405; J2470; J2543; J2704; J2710; J2795; J3010; J3373; J3475; J3480; J3490; J7030; J7070; Q9967; A4216; A4222; A4223; A4649; A6223; A6450; C1751; C1887